=== PATIENT | male | born 1950 | race Caucasian/White ===

== ENCOUNTER 2018-12-11 10:49 | Emergency (ER) | payer OTHER, MEDICARE ==
[2018-12-11] MEDS ORDERED: ALBUTEROL SO4 2.5/IPRATROPIUM 0.5 INH SOL 3 ML VIAL.NEB. NEB ONE ×2 (11:01→11:05)
[2018-12-11 11:05] VITALS: BP 148/74; PULSE 73; TEMP 98.1; BMI 31.6
[2018-12-11] MEDS ORDERED: predniSONE 20 MG TABLET (UD) PO ONE (11:44)
[2018-12-11] MEDS ORDERED: predniSONE 20 MG TABLET (UD) ONE (11:55)
--- NOTE | 2018-12-11 12:04 | PDOC ---
History of Present Illness - General Chief Complaint: Respiratory Stated Complaint: ASTHMA Time Seen by Provider: 12/11/18 11:14 History Source: Patient Exam Limitations: No Limitations - History of Present Illness Initial Comments: 12/11/18 12:29 68-year-old male with history of asthma presents to ED with cough and wheezing since yesterday. Patient states used his inhaler 3 with minimal improvement. Patient states has had no chest pain, fever or chills. Patient denies smoking history of lung disease. 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 in approximately 2 years Timing/Duration: reports: yesterday Severity: reports: mild Possible Cause: Yes: occasional episodes Modifying Factors: improves with: albuterol inhaler, coughing Associated Symptoms: reports: cough, wheezing Past History - Travel Traveled outside of the country in the last 30 days: No Close contact w/someone who was outside of country & ill: No - Past Medical History Allergies/Adverse Reactions: Allergies Allergy/AdvReac Type Severity Reaction Status Date / Time Penicillins Allergy Verified 12/11/18 10:57 Home Medications: Ambulatory Orders Atorvastatin Ca [Lipitor] 20 mg PO HS 07/01/18 Diclofenac Sodium 50 mg PO ASDIR 07/01/18 Albuterol Sulfate Inhaler - [Ventolin HFA Inhaler -] 1 - 2 inh PO QID PRN #1 inhaler 12/11/18 Albuterol Sulfate Inhaler - [Ventolin Hfa Inhaler -] 1 - 2 inh PO QID 12/11/18 predniSONE [Deltasone -] 40 mg PO DAILY #4 tablet 12/11/18 Asthma: Yes COPD: No Hypercholesterolemia: Yes - Suicide/Smoking/Psychosocial Hx Smoking History: Unknown if ever smoked Patient Lives Alone: Yes Lives with/in: lives alone Review of Systems - Review of Systems Able to Perform ROS?: Yes Constitutional: No: Symptoms Reported HEENTM: No: Symptoms Reported Respiratory: Yes: Cough, Wheezing Cardiac (ROS): No: Symptoms Reported ABD/GI: No: Symptoms Reported Musculoskeletal: No: Symptoms Reported Integumentary: No: Symptoms Reported Neurological: No: Symptoms reported *Physical Exam - Vital Signs Last Vital Signs Temp Pulse Resp BP Pulse Ox 98.1 F 73 18 148/74 99 12/11/18 10:58 12/11/18 10:58 12/11/18 10:58 12/11/18 10:58 12/11/18 10:58 - Physical Exam General Appearance: Yes: Nourished, Appropriately Dressed. No: Apparent Distress HEENT: positive: Pharynx Normal. negative: Pale Conjunctivae Neck: positive: Normal Thyroid, Supple Respiratory/Chest: positive: Lungs Clear, Normal Breath Sounds. negative: Respiratory Distress, Accessory Muscle Use Cardiovascular: positive: Regular Rhythm, Regular Rate. negative: Murmur Gastrointestinal/Abdominal: positive: Soft. negative: Tenderness Extremity: negative: Pedal Edema Integumentary: positive: Normal Color, Warm, Moist Neurologic: positive: Motor Strength 5/5 (ambulatory) Moderate Sedation - Procedure Monitoring Vital Signs: Procedure Monitoring Vital Signs Temperature 98.1 F 12/11/18 10:58 Pulse Rate 73 12/11/18 10:58 Respiratory Rate 18 12/11/18 10:58 Blood Pressure 148/74 12/11/18 10:58 O2 Sat by Pulse Oximetry (%) 99 12/11/18 10:58 ED Treatment Course - RADIOLOGY Radiology Studies Ordered: Category Date Time Status CHEST PA & LAT [RAD] Stat Radiology 12/11/18 11:44 Ordered - Medications Given in the ED: ED Medications Discontinued Medications Generic Name Dose Route Start Last Admin Trade Name Freq PRN Reason Stop Dose Admin Albuterol/Ipratropium 2 amp 12/11/18 11:05 12/11/18 11:05 Duoneb - NEB 12/11/18 11:06 2 amp NOW ONE Administration Prednisone 60 mg 12/11/18 11:44 12/11/18 11:56 Deltasone - PO 12/11/18 11:45 60 mg ONCE ONE Administration Medical Decision Making - Medical Decision Making 12/11/18 12:01 Complaint wheezing and cough since last night with no improvement of using inhaler 3. Patient states his inhaler hasxpired since he has not seen his doctor for over 2 years. Patient has no other complaints at this time. Exam: Patient with no wheezing upon my arrival. Patient was given albuterol nebulizer in triage secondary to wheezing noted by triage nurse. Patient has no accessory muscle usage. Plan. Chest x-ray to rule out pulmonary etiology if negative will discharge home with prednisone and renew his albuterol. 12/11/18 12:53 Chest x-ray negative for acute pathology. Patient continues to state feeling back at baseline. Patient given supportive care instructions and prednisone 2 days along with renewed albuterol inhaler. *DC/Admit/Observation/Transfer Diagnosis at time of Disposition: Asthma exacerbation - Discharge Dispostion Disposition: HOME Condition at time of disposition: Good - Prescriptions Prescriptions: Albuterol Sulfate Inhaler - [Ventolin HFA Inhaler -] 1 - 2 inh PO QID PRN #1 inhaler PRN Reason: Wheezing predniSONE [Deltasone -] 40 mg PO DAILY #4 tablet - Referrals Referrals: ON STAFF,NOT [Primary Care Provider] - - Patient Instructions Printed Discharge Instructions: DI for Asthma -- Adult Additional Instructions: Please take Prednisone starting tomorrow. Please take Albuterol as needed. - Post Discharge Activity
== END 2018-12-11 12:48 | disposition home or self-care (01) ==
LOC: JER 10:49
PROC: 3E0F7GC Introduction of Other Therapeutic Substance into Respiratory Tract, Via Natural or Artificial Opening (ICD-10-PCS; principal; 2018-12-11)
DX: J45.901 Unspecified asthma with (acute) exacerbation (principal)
CPT/HCPCS: 71046-TC-FY; 94640; 99283-25

== ENCOUNTER 2018-12-16 11:45 | Emergency (ER) | payer OTHER, MEDICARE ==
[2018-12-16 12:08] VITALS: TEMP 98.7; BMI 31.6
--- NOTE | 2018-12-16 12:52 | PDOC ---
History of Present Illness - General Chief Complaint: Asthma Stated Complaint: ASTHMA 2nd visit Time Seen by Provider: 12/16/18 12:51 - History of Present Illness Initial Comments: 68yo M with PMH of exercise-induced asthma and HLD presenting with shortness of breath. Patient states that his asthma got worse on Friday. He does not know what triggered it, but suspects a neighbor may have been tempering with their shared ventilation unit. Last asthma attack was last week for which he presented to the ED. Before that time, his asthma had been under control and he even had several albuterol inhalers. Endorses occasional dry cough. Has never been hospitalized or intubated for his asthma. Finished the steroids prescribed from the last ED visit. Patient has an appointment to see a new bankruptcy manager on 12/29/18 as his previous one last year. He has seen a refractory tile helper in the past (about five years ago) but does not remember who the physician was or what transpired. Patient last saw his primary care physician last spring who gave him a "clean bill of health." No hemoptysis, no recent surgical history, no recent immobilization, no hormone use, no history of DVT or PE. Reports difficulty urinating, but no dysuria, hematuria, or frequency. Denies sick contacts or recent travel. Did not get a flu shot this season. Denies fever, chills, chest pain, or abdominal pain. Past History - Past Medical History Allergies/Adverse Reactions: Allergies Allergy/AdvReac Type Severity Reaction Status Date / Time Penicillins Allergy Verified 12/16/18 12:08 Home Medications: Ambulatory Orders Atorvastatin Ca [Lipitor] 20 mg PO HS 07/01/18 RX: Diclofenac Sodium 50 mg PO ASDIR 07/01/18 Albuterol Sulfate Inhaler - [Ventolin Hfa Inhaler -] 1 - 2 inh PO QID 12/11/18 Methylprednisolone [Medrol Dose Bandar] 4 mg PO ASDIR #21 tablet 12/16/18 RX: Azithromycin 250 mg PO DAILY #6 tablet 12/16/18 Zolpidem Tartrate [Ambien] 10 mg PO HS 12/16/18 Asthma: Yes COPD: No Hypercholesterolemia: Yes - Suicide/Smoking/Psychosocial Hx Smoking History: Never smoked Information on smoking cessation initiated: No Hx Alcohol Use: No Drug/Substance Use Hx: No Review of Systems - Review of Systems Comments:: Constitutional: no fever, no chills HEENT: no throat pain, no dysphagia Cardiovascular: no chest pain, no palpitations Respiratory: +cough, +shortness of breath Gastrointestinal: no abdominal pain, no nausea, no vomiting Genitourinary: no dysuria, no frequency Musculoskeletal: no myalgia, no arthralgia Skin: no rash, no itching Neurologic: no headache, no dizziness *Physical Exam - Vital Signs Last Vital Signs Temp Pulse Resp BP Pulse Ox 98.7 F 79 19 167/87 95 12/16/18 12:06 12/16/18 12:06 12/16/18 12:06 12/16/18 12:06 12/16/18 12:06 - Physical Exam Comments: General: Awake, alert, and fully oriented, in no acute distress Head: No signs of trauma Eyes: EOMI, sclera anicteric ENT: Moist mucus membranes Neck: Normal ROM, supple Lungs: Diffuse expiratory wheezes present bilaterally Cardio: Regular rhythm, S1 and S2 present Abdomen: Soft, nontender. No guarding, no rebound, no masses Extremities: Normal range of motion, Distal pulses present, no lower limb edema SKIN: Warm, Dry, normal turgor Neurologic: Cranial nerves II through XII grossly intact. Normal speech Moderate Sedation - Procedure Monitoring Vital Signs: Procedure Monitoring Vital Signs Temperature 98.7 F 12/16/18 12:06 Pulse Rate 79 12/16/18 12:06 Respiratory Rate 19 12/16/18 12:06 Blood Pressure 167/87 12/16/18 12:06 O2 Sat by Pulse Oximetry (%) 95 12/16/18 12:06 ED Treatment Course - LABORATORY CBC & Chemistry Diagram: 12/16/18 13:48 12/16/18 13:48 Medical Decision Making - Medical Decision Making 68yo M with PMH of exercise-induced asthma and HLD presenting with shortness of breath. DDX including but limited to asthma exacerbation, COPD, CHF, URI, Influenza, ACS , PE, Allergic reaction Exam consistent with asthma, however, this is patient's second visit within a week, so will pursue further workup Plan to administer nebs and solu-medrol. Blood work to assess for infection, allergy, or cardiac pathology. Repeat CXR to check for PNA. Flu swab. 12/16/18 14:06 Patient with improved lung exam. Only scant wheezes. He does have an appointment to see a bankruptcy manager on 12/29. No leukocytosis or anemia. Flu and tpn negative. CXR unchanged from previous; will cover with azithromycin since this asthma exacerbation is vastly different from his baseline. Medrol-dose pack sent to pharmacy as well. 12/16/18 15:24 Patient advised to stay for admission. Benefits and risks explained and patient voice understanding. He declined admission after extensive discussion. "I'll come back if I have to but I can't stay" Patient signed out AMA with Azithromycin, Medrol dose pack, and return precautions. *DC/Admit/Observation/Transfer Diagnosis at time of Disposition: Asthma exacerbation - Discharge Dispostion Disposition: AGAINST MEDICAL ADVICE Condition at time of disposition: Stable - Prescriptions Prescriptions: RX: Azithromycin 250 mg PO DAILY #6 tablet Methylprednisolone [Medrol Dose Bandar] 4 mg PO ASDIR #21 tablet - Referrals Referrals: Baljeet Miles [Primary Care Provider] - - Patient Instructions Printed Discharge Instructions: Asthma -- Adult Additional Instructions: Call for emergency medical services or go to the emergency room right away if any of the following occurs: Difficulty breathing, unrelieved by medications Tightness in chest, unrelieved by medications Prescriptions sent to your pharmacy. Take as instructed. In addition, use your inhaler every 4-6 hours for the next two days. If you think you have an emergency, call for medical help right away. - Post Discharge Activity
[2018-12-16] MEDS ORDERED: ALBUTEROL SO4 2.5/IPRATROPIUM 0.5 INH SOL 3 ML VIAL.NEB. NEB ONE ×2 (12:59→13:32)
--- NOTE | 2018-12-16 13:31 | PDOC ---
Attending Attestation - HPI HPI: 12/16/18 14:15 The patient is a 68yo M with a signfiicant past medical history of exercise- induced asthma and HLD presenting with shortness of breath since Friday. He reports having an asthma attack last week for which he presented to the ED. Before that time, his asthma had been under control and he even had several albuterol inhalers. He also reports a occasional dry cough. He states he has an appointment to see a new risk control consultant on 12/29/18 as his previous one last year. He denies hemoptysis, recent surgical history, recent immobilization, hormone use. He denies history of DVT or PE. He enies sick contacts or recent travel. He denies fever, chills, chest pain, or abdominal pain. <Stacey Smallwood - Last Filed: 12/16/18 14:23> - Resident Resident Name: FabyMeli - ED Attending Attestation I have performed the following: I have examined & evaluated the patient, The case was reviewed & discussed with the resident, I agree w/resident's findings & plan, Exceptions are as noted - Physicial Exam PE: 12/16/18 13:28 GENERAL: The patient is in no acute distress. EYES: PERRLA, EOMI, sclera anicteric, conjunctiva clear. ENT: Ears normal, nares patent, oropharynx clear without exudates. Moist mucous membranes. NECK: Normal range of motion, supple without lymphadenopathy, JVD, or masses. LUNGS: Breath sounds equal, clear to auscultation bilaterally. No wheezes, and no crackles. HEART:Regular rate and rhythm, normal S1 and S2 without murmur, rub or gallop. ABDOMEN: Soft, nontender, normoactive bowel sounds. No guarding, no rebound. No masses palpable. EXTREMITIES: Normal range of motion, no edema. NEUROLOGICAL: Cranial nerves II through XII grossly intact. Normal speech. No focal neurological deficits. MUSCULOSKELETAL: Back non-tender to palpation, no CVA tenderness SKIN: Warm, Dry, normal turgor, no rashes or lesions noted. - Medical Decision Making 12/16/18 16:18 NSR rate of 77 bpm, axis nml, intervals nml, no st elevation or depression 12/16/18 16:19 Laboratory Tests 12/16/18 12/16/18 12/16/18 13:48 13:48 13:48 WBC 9.8 Hgb 16.1 Hct 46.4 Plt Count 240 BUN 21 H Creatinine 1.1 AST 49 H ALT 85 H Creatine Kinase Index 0.9 CK-MB (CK-2) 3.1 Troponin I < 0.02 Influenza A (Rapid) Negative Influenza B (Rapid) Negative 12/16/18 16:19 CXR - no consolidation seen Upon re assessment, pt continues to have inspiratory and expiratory wheezing He states he feels much better No tachypnea Pt refusing to stay in the hospital <Fabiana Hansen - Last Filed: 12/16/18 16:20> Attestations - Attestations 12/16/18 14:24 Documentation prepared by Stacey Smallwood, acting as medical records library professor for Fabiana Hansen MD. <Stacey Smallwood - Last Filed: 12/16/18 14:23>
[2018-12-16] MEDS ORDERED: ALBUTEROL SO4 0.083% IH SOL 2.5 MG/3 ML VIAL.NEB. NEB ONE ×3 (13:33→14:24)
[2018-12-16] MEDS ORDERED: methylPREDNISolone NA SUCC 125 MG/2 ML VIAL IVPUSH ONE (13:33)
[2018-12-16] MEDS ORDERED: methylPREDNISolone NA SUCC 125 MG/2 ML VIAL ONE (13:46)
[2018-12-16 14:07] LABS: BASO % 0.7 % (0-2.0); EOS % 4.6 % (0-4.5); HEMATOCRIT 46.4 % (35.4-49); HEMOGLOBIN 16.1 GM/dL (11.7-16.9); LYMPH % 25.4 % (8-40); MCH 31.9 pg (25.7-33.7); MCHC 34.7 g/dl (32.0-35.9); MEAN PLT VOLUME 7.9 fl (7.5-11.1); MONO % 9.5 % (3.8-10.2); NEUT % 59.8 % (42.8-82.8); PLATELET COUNT 240 K/MM3 (134-434); RBC 5.04 M/mm3 (4.00-5.60); RDW 14.2 % (11.9-15.9); WHITE BLOOD COUNT 9.8 K/mm3 (4.0-10.0)
[2018-12-16 14:33] LABS: ALBUMIN 4.2 g/dl (3.4-5.0); ALK PHOS 68 U/L (45-117); ANION GAP 9 MMOL/L (8-16); BILIRUBIN,TOTAL 0.7 mg/dL (0.2-1); BLOOD UREA NITROGEN 21 mg/dL (7-18); CALCIUM 9.2 mg/dL (8.5-10.1); CHLORIDE 104 mmol/L (98-107); CO2 25 mmol/L (21-32); CREATININE 1.1 mg/dL (0.55-1.3); GLUCOSE,RANDOM 96 mg/dL (74-106); POTASSIUM 4.6 mmol/L (3.5-5.1); SGOT/AST 49 U/L (15-37); SGPT/ALT 85 U/L (13-61); SODIUM 138 mmol/L (136-145)
[2018-12-16 15:18] VITALS: BP 158/78; PULSE 90
--- NOTE | 2018-12-16 16:04 | EKG ---
Test Reason : Blood Pressure : / mmHG Vent. Rate : 077 BPM Atrial Rate : 077 BPM P-R Int : 168 ms QRS Dur : 102 ms QT Int : 364 ms P-R-T Axes : 034 003 078 degrees QTc Int : 411 ms NORMAL SINUS RHYTHM NONSPECIFIC T WAVE ABNORMALITY ABNORMAL ECG NO PREVIOUS ECGS AVAILABLE Confirmed by TWIN SCHUMACHER, ROBBIN ([id number]) on 12/16/2018 4:03:41 PM Referred By: Confirmed By:ROBBIN MURCIA MD
== END 2018-12-16 15:50 | disposition left against medical advice (07) ==
LOC: JER 11:45
PROC: 3E0F7GC Introduction of Other Therapeutic Substance into Respiratory Tract, Via Natural or Artificial Opening (ICD-10-PCS; principal; 2018-12-16)
PROC: 3E033GC Introduction of Other Therapeutic Substance into Peripheral Vein, Percutaneous Approach (ICD-10-PCS; 2018-12-16)
DX: J45.41 Moderate persistent asthma with (acute) exacerbation (principal)
CPT/HCPCS: 36415; 71046-TC-FY; 80053; 82550; 82553; 83880; 84484; 85025; 87804; 93005; 93010; 99283-25

== ENCOUNTER 2018-12-22 11:36 | Emergency (ER) | payer OTHER, MEDICARE ==
[2018-12-22 12:13] VITALS: BMI 31.6
--- NOTE | 2018-12-22 12:37 | PDOC ---
History of Present Illness - General Chief Complaint: Asthma Stated Complaint: ASTHMA Time Seen by Provider: 12/22/18 12:36 History Source: Patient, Old Records Exam Limitations: No Limitations - History of Present Illness Initial Comments: HPI: 68 y/o male presenting to [facility] ER complaining of shortness of breath and wheezing x1 month. This is the pts third ED visit for these symptoms (11 Dec 2018 and 16 Dec 2018). Pt reports he is wheezing at rest and with exertion. Become worse when lying flat. Endorses infrequent and nonproductive cough. Denies leg swelling or paroxysmal nocturnal dyspnea. Denies fevers, chills, weight loss, or night sweats. Denies calf swelling, long periods of immobilization, or recent surgery. Denies personal or familial history of blood clots or PE. Pt has a history of asthma managed with PRN ventolin. Has received azithromycin and prednisone over the past week without improvement or change in his symptoms. 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 Is scheduled to establish care with Dr. Mckeon at the end of the month. Has never been intubated for asthma in the past. 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 States there is possible chemical exposure. Medical Hx: - Asthma - HLD - Uvulectomy - Left shoulder repair x2 - Left knee repair Family Hx: - Multiple family members, include brother, sister, and father, have from lung problems Past History - Past Medical History Allergies/Adverse Reactions: Allergies Allergy/AdvReac Type Severity Reaction Status Date / Time Penicillins Allergy Verified 12/22/18 12:09 Home Medications: Ambulatory Orders Atorvastatin Ca [Lipitor] 20 mg PO HS 07/01/18 Diclofenac Sodium 100 mg PO DAILY 07/01/18 Albuterol Sulfate Inhaler - [Ventolin Hfa Inhaler -] 1 - 2 inh PO QID 12/11/18 Zolpidem Tartrate [Ambien] 10 mg PO HS 12/16/18 Prednisone 10 mg PO DAILY #40 tablet 12/22/18 Asthma: Yes COPD: No Hypercholesterolemia: Yes - Suicide/Smoking/Psychosocial Hx Smoking History: Never smoked Hx Alcohol Use: No Drug/Substance Use Hx: No Review of Systems - Review of Systems Able to Perform ROS?: Yes Comments:: In addition to that documented in the HPI above, the additional ROS was obtained : Constitutional: Denies fevers or chills Eyes: Denies vision changes ENMT: Denies sore throat CV: Endorses anterior chest wall tenderness with cough, non-radiated Resp: Per HPI GI: Denies vomiting or diarrhea : Denies painful urination MSK: Denies recent trauma Skin: Denies new rashes Neuro: Denies new numbness or tingling or weakness Endocrine: Denies polyuria Heme: Denies bleeding or bruising *Physical Exam - Vital Signs Last Vital Signs Temp Pulse Resp BP Pulse Ox 98.8 F 78 20 159/83 95 12/22/18 12:00 12/22/18 12:00 12/22/18 12:00 12/22/18 12:00 12/22/18 12:00 - Physical Exam Comments: Constitutional: Non-toxic adult male in no acute distress or obvious discomfort. Found sitting upright on edge of hospital bed. Alert and oriented x4. Answered all questions appropriately and completely. Speech was non-labored , non-pressured. Head: Normocephalic. No obvious external signs of trauma. Eyes: Sclerae white. Conjunctiva moist and not injected. Ears: Hearing grossly intact. Nose: No nasal discharge. Throat: Oral cavity and pharynx normal. No inflammation, swelling, exudate, or lesions. No uvula. Neck: Supple, trachea is midline. No JVD or thyromegaly. Cardiovascular / Chest: Regular rate and regular rhythm. No murmur, rubs, clicks, or gallops. Peripheral pulses: radial pulses full. Respiratory: Breathing unlabored. Able to speak in complete sentences without pausing. Equal chest rise and fall. Diffuse expiratory wheezing. No stridor or rhonchi. No pursed lip breathing, no retractions. Gastrointestinal: abdomen is soft, non-tender, non-distended. Neuro: Alert and oriented. Moving all four extremities spontaneously. Skin: Warm, dry, and intact. Psych: Affect: appropriate. Mood: normal. Moderate Sedation - Procedure Monitoring Vital Signs: Procedure Monitoring Vital Signs Temperature 98.8 F 12/22/18 12:00 Pulse Rate 78 12/22/18 12:00 Respiratory Rate 20 12/22/18 12:00 Blood Pressure 159/83 12/22/18 12:00 O2 Sat by Pulse Oximetry (%) 95 12/22/18 12:00 ED Treatment Course - LABORATORY CBC & Chemistry Diagram: 12/22/18 13:00 12/22/18 14:45 *DC/Admit/Observation/Transfer Diagnosis at time of Disposition: Asthma exacerbation Qualifiers: Asthma severity: moderate Asthma persistence: persistent Qualified Code(s): J45.41 - Moderate persistent asthma with (acute) exacerbation - Discharge Dispostion Disposition: HOME Condition at time of disposition: Good Decision to Admit order: No - Prescriptions Prescriptions: Prednisone 10 mg PO DAILY #40 tablet - Referrals Referrals: Gagan Mckeon MD [Staff Physician] - - Patient Instructions Printed Discharge Instructions: Asthma -- Adult Additional Instructions: You were seen today for shortness of breath and wheezing. Your chest CT did not show any lung problems. It did show some fatty build up in your liver. Your liver enzymes were slightly elevated, which may be related to the fat build up. This finding is unlikely to be related to your symptoms today. Your symptoms are likely related to your history of asthma. I have sent a prescription for a longer Prednisone taper to your pharmacy. You should take 40mg daily for days 1-4, then 30mg for days 5-8, then 20mg for days 9-12, then 10mg for days 13-16. Continue to use your inhaler as needed. Follow up with Dr. Mckeon at your previously scheduled appointment. You should also follow up with your primary care doctor about the fatty liver finding within the next week. You will need to call to make an appointment. A copy of todays results are attached to this packet. Take it to the appointment so your doctor can review them. Go to the nearest emergency department if your condition worsens or you feel like you need additional emergency evaluation. Print Language: FILIPINO - Post Discharge Activity
--- NOTE | 2018-12-22 13:01 | PDOC ---
Attending Attestation - Resident Resident Name: Benny Crane - ED Attending Attestation I have performed the following: I have examined & evaluated the patient, The case was reviewed & discussed with the resident, I agree w/resident's findings & plan, Exceptions are as noted - HPI HPI: 68 yo M history asthma, HL presents with SOB for the past 1.5 weeks. He was treated in the ED twice for the symptoms. He has received a course of steroids and azithro and continues to have symptoms. He has been using his inhaler without relief. No known exposures. He has been having a hacking cough which has not resolved. He had a negative flu swab on prior ED visit. - Physicial Exam PE: GENERAL: Awake, alert, and fully oriented, in no acute distress HEAD: No signs of trauma EYES: PERRLA, EOMI, sclera anicteric, conjunctiva clear ENT: Auricles normal inspection, hearing grossly normal, nares patent, oropharynx clear without exudates. Moist mucosa NECK: Normal ROM, supple, no lymphadenopathy, JVD, or masses LUNGS: Dec air entry B/L with diffuse exp wheezes. Intermittent staccato cough. HEART: Regular rate and rhythm, normal S1 and S2, no murmurs, rubs or gallops ABDOMEN: Soft, nontender, normoactive bowel sounds. No guarding, no rebound. No masses EXTREMITIES: Normal range of motion, no edema. No clubbing or cyanosis. No cords, erythema, or tenderness NEUROLOGICAL: Cranial nerves II through XII grossly intact. Normal speech, normal gait. Motor and sensation intact SKIN: Warm, Dry, normal turgor, no rashes or lesions noted. - Medical Decision Making Pt with persistent cough and wheezing following recent URI. Although the flu swab was negative, it may have been flu, as there is a high rate of false negatives. He had multiple family members with lung CA, will obtain non- contrast CT of the chest. Will give steroids, magnesium, and nebs.
[2018-12-22] MEDS ORDERED: ALBUTEROL SO4 2.5/IPRATROPIUM 0.5 INH SOL 3 ML VIAL.NEB. NEB ONE ×2 (13:07→13:26)
[2018-12-22] MEDS ORDERED: MAGNESIUM SULF 50% (8.12 MEQ/2 ML-1 GM VIAL) IVPB ONE (13:09)
[2018-12-22] MEDS ORDERED: methylPREDNISolone NA SUCC 125 MG/2 ML VIAL IVPUSH ONE (13:21)
[2018-12-22] MEDS ORDERED: MAGNESIUM 1GM/D5W - 2 GM/200 ML IVPB IVPB ONE (13:27)
[2018-12-22] MEDS ORDERED: methylPREDNISolone NA SUCC 125 MG/2 ML VIAL ONE (13:27)
[2018-12-22 13:43] LABS: BASO % 0.7 % (0-2.0); EOS % 6.5 % (0-4.5); LYMPH % 15.8 % (8-40); MCH 31.9 pg (25.7-33.7); MCHC 34.8 g/dl (32.0-35.9); MEAN CELL VOLUME 91.8 fl (80-96); MEAN PLT VOLUME 7.9 fl (7.5-11.1); MONO % 7.2 % (3.8-10.2); NEUT % 69.8 % (42.8-82.8); PLATELET COUNT 269 K/MM3 (134-434); RBC 5.33 M/mm3 (4.00-5.60); RDW 14.2 % (11.9-15.9); WHITE BLOOD COUNT 13.8 K/mm3 (4.0-10.0)
[2018-12-22 15:34] LABS: ALBUMIN 4.2 g/dl (3.4-5.0); ALK PHOS 75 U/L (45-117); ANION GAP 8 MMOL/L (8-16); BILIRUBIN,TOTAL 0.4 mg/dL (0.2-1); BLOOD UREA NITROGEN 24 mg/dL (7-18); CALCIUM 8.9 mg/dL (8.5-10.1); CHLORIDE 109 mmol/L (98-107); CO2 23 mmol/L (21-32); CREATININE 1.2 mg/dL (0.55-1.3); GLUCOSE,RANDOM 114 mg/dL (74-106); POTASSIUM 4.3 mmol/L (3.5-5.1); SGOT/AST 46 U/L (15-37); SGPT/ALT 93 U/L (13-61); SODIUM 139 mmol/L (136-145); TOT PROT 7.6 g/dl (6.4-8.2)
[2018-12-22 16:03] LABS: PLATELET ESTIMATE NORMAL
[2018-12-22 16:40] VITALS: BP 145/84; PULSE 84; TEMP 98.6
--- NOTE | 2018-12-22 19:45 | EKG ---
Test Reason : Blood Pressure : / mmHG Vent. Rate : 084 BPM Atrial Rate : 084 BPM P-R Int : 164 ms QRS Dur : 096 ms QT Int : 352 ms P-R-T Axes : 033 010 074 degrees QTc Int : 415 ms NORMAL SINUS RHYTHM NONSPECIFIC T WAVE ABNORMALITY ABNORMAL ECG WHEN COMPARED WITH ECG OF 16-DEC-2018 14:12, NO SIGNIFICANT CHANGE WAS FOUND Confirmed by MD LANCE, LOIS ([id number]) on 12/22/2018 7:44:42 PM Referred By: Confirmed By:LOIS LUCAS MD
== END 2018-12-22 16:35 | disposition home or self-care (01) ==
LOC: JER 11:36
PROC: 3E0F7GC Introduction of Other Therapeutic Substance into Respiratory Tract, Via Natural or Artificial Opening (ICD-10-PCS; principal; 2018-12-22)
PROC: 3E0333Z Introduction of Anti-inflammatory into Peripheral Vein, Percutaneous Approach (ICD-10-PCS; 2018-12-22)
PROC: 3E033GC Introduction of Other Therapeutic Substance into Peripheral Vein, Percutaneous Approach (ICD-10-PCS; 2018-12-22)
DX: J45.41 Moderate persistent asthma with (acute) exacerbation (principal); E78.00 Pure hypercholesterolemia, unspecified
CPT/HCPCS: 36415; 71250-TC; 80053; 84484; 85025; 93005; 93010; 94640; 96374; 96375; 99284-25

== ENCOUNTER 2019-01-12 10:35 | Emergency (ER) | payer OTHER, MEDICARE ==
[2019-01-12 10:54] VITALS: BMI 32.3
[2019-01-12] MEDS ORDERED: SODIUM CHLORIDE 0.9% 1000 ML INFUS.BAG IV ONE (11:12)
[2019-01-12] MEDS ORDERED: ONDANSETRON 4 MG/2 ML VIAL IVPUSH ONE (11:12)
[2019-01-12] MEDS ORDERED: FAMOTIDINE 20 MG/50 ML IVPB 20 MG/50 ML MG IVPB ONE ×2 (11:12→11:20)
[2019-01-12] MEDS ORDERED: ONDANSETRON 4 MG/2 ML VIAL ONE (11:20)
[2019-01-12] MEDS ORDERED: ALBUTEROL SO4 2.5/IPRATROPIUM 0.5 INH SOL 3 ML VIAL.NEB. NEB ONE ×2 (11:29→11:40)
--- NOTE | 2019-01-12 11:31 | PDOC ---
History of Present Illness - General History Source: Patient Exam Limitations: No Limitations - History of Present Illness Initial Comments: 01/12/19 12:36 The patient is a 68-year-old male with a past medical history significant for Asthma, HLD, Uvulectomy, Left shoulder repair x2, and Left knee repair presents to the emergency department with abdominal pain. The patient reports about 2 weeks ago he had an episode of asthma exacerbation that he followed up with. The patient was prescribed antibiotics and steroids for the symptoms, without relief. The patient reports during the course of steroid use, he started to have 5-10 NBNB daily episodes of diarrhea, associated with abdominal pain that s cramping in quality. The patient reports the pain worsened in severity last night. Denies nausea, vomiting, abdominal bloating, fever, chills. Denies sick contact, travel outside of the country, known sick contact. The patient denies crystal gazer follow up. Allergies: Penicillins Social history: none reported [place]CP: [place] the city. <Ariella Hope - Last Filed: 01/12/19 12:37> <Ubaldo Mcmahon - Last Filed: 01/12/19 16:48> - General Chief Complaint: Vomiting/Diarrhea Stated Complaint: STOMACH PAIN Time Seen by Provider: 01/12/19 11:02 Past History <Ariella Hope - Last Filed: 01/12/19 12:37> - Past Medical History Asthma: Yes COPD: No Hypercholesterolemia: Yes - Suicide/Smoking/Psychosocial Hx Smoking History: Never smoked Hx Alcohol Use: No Drug/Substance Use Hx: No <Ubaldo Mcmahon - Last Filed: 01/12/19 16:48> - Past Medical History Allergies/Adverse Reactions: Allergies Allergy/AdvReac Type Severity Reaction Status Date / Time Penicillins Allergy Verified 12/22/18 12:09 Home Medications: Ambulatory Orders Atorvastatin Ca [Lipitor] 20 mg PO HS 07/01/18 Diclofenac Sodium 100 mg PO DAILY 07/01/18 Albuterol Sulfate Inhaler - [Ventolin Hfa Inhaler -] 1 - 2 inh PO QID 12/11/18 Zolpidem Tartrate [Ambien] 10 mg PO HS 12/16/18 Albuterol Sulfate Inhaler - [Ventolin Hfa Inhaler -] 1 - 2 inh PO Q4H PRN #1 inhaler 02/19/19 Prednisone 10 mg PO DAILY #40 tablet 12/22/18 Vancomycin HCl 125 mg PO QID #40 capsule 01/12/19 Review of Systems - Review of Systems Able to Perform ROS?: Yes Comments:: 01/12/19 12:41 A complete review of 10 out of 10 review of systems is taken and is negative apart from what is previously mentioned below and in the HPI. <Ariella Hope - Last Filed: 01/12/19 12:37> *Physical Exam - Vital Signs Last Vital Signs Temp Pulse Resp BP Pulse Ox 99.6 F 85 16 139/72 99 01/12/19 10:51 01/12/19 10:51 01/12/19 10:51 01/12/19 10:51 01/12/19 10:51 - Physical Exam Comments: 01/01/19 12:44 Vitals: Triage Vital signs reviewed General Appearance: no acute distress, well nourished well developed, Neck: Supple;No Nuchal rigidity Chest Wall: Nontender Cardiac: Regular rate and rhythm, no murmurs, no rubs, no gallops, Lungs: Clear to auscultation bilateral, good air movement bilaterally, Abdomen: Soft, nondistended, normal bowel sounds, nontender to palpation Extremities: Full range of motion to all extremities, no cyanosis, clubbing, or edema Skin: Warm and dry, no rashes or lesions, no petechiae Neuro: AOX3; Cranial Nerves 2-12 grossly intact, Strength intact to all extremities, Sensation intact to all extremities Psych: normal mood, normal <Ariella Hope - Last Filed: 01/12/19 12:37> - Vital Signs Last Vital Signs Temp Pulse Resp BP Pulse Ox 99.6 F 85 16 139/72 99 01/12/19 10:51 01/12/19 10:51 01/12/19 10:51 01/12/19 10:51 01/12/19 10:51 <Ubaldo Mcmahon - Last Filed: 01/12/19 16:48> Moderate Sedation - Procedure Monitoring Vital Signs: Procedure Monitoring Vital Signs Temperature 99.6 F 01/12/19 10:51 Pulse Rate 85 01/12/19 10:51 Respiratory Rate 16 01/12/19 10:51 Blood Pressure 139/72 01/12/19 10:51 O2 Sat by Pulse Oximetry (%) 99 01/12/19 10:51 <Ariella Hope - Last Filed: 01/12/19 12:37> - Procedure Monitoring Vital Signs: Procedure Monitoring Vital Signs Temperature 99.6 F 01/12/19 10:51 Pulse Rate 85 01/12/19 10:51 Respiratory Rate 16 01/12/19 10:51 Blood Pressure 139/72 01/12/19 10:51 O2 Sat by Pulse Oximetry (%) 99 01/12/19 10:51 <Ubaldo Mcmahon - Last Filed: 01/12/19 16:48> ED Treatment Course - LABORATORY CBC & Chemistry Diagram: 01/12/19 11:35 01/12/19 11:35 - ADDITIONAL ORDERS Additional order review: 01/12/19 11:35 RBC 4.42 MCV 90.4 MCHC 35.4 RDW 13.7 MPV 6.9 L D Neutrophils % 67.7 Lymphocytes % 15.4 Monocytes % 11.7 H Eosinophils % 4.4 Basophils % 0.8 - Medications Given in the ED: ED Medications Discontinued Medications Generic Name Dose Route Start Last Admin Trade Name Freq PRN Reason Stop Dose Admin Albuterol/Ipratropium 3 amp 01/12/19 11:29 01/12/19 11:50 Duoneb - NEB 01/12/19 11:30 3 amp ONCE ONE Administration Famotidine/Sodium Chloride 20 mg in 50 mls @ 100 mls/hr 01/12/19 11:12 11:37 Pepcid 20 Mg Premixed Ivpb - IVPB 01/12/19 11:41 100 mls/hr ONCE ONE Administration Ondansetron HCl 4 mg 01/12/19 11:12 01/12/19 11:37 Zofran Injection IVPUSH 01/12/19 11:13 4 mg ONCE ONE Administration Sodium Chloride 1,000 ml 01/12/19 11:12 01/12/19 11:37 Normal Saline - IV 01/12/19 11:13 1,000 ml ONCE ONE Administration <Ariella Hope - Last Filed: 01/12/19 12:37> - LABORATORY CBC & Chemistry Diagram: 01/12/19 11:35 01/12/19 11:35 <Ubaldo Mcmahon - Last Filed: 01/12/19 16:48> Medical Decision Making - Medical Decision Making 01/12/19 12:24 Plan Micrio: Stool Culture and C-Diff. Medication Breathing treatment. Labs: CMP. Radiology: Chest X-ray. The patient is a 68-year-old male with a past medical history significant for Asthma, HLD, Uvulectomy, Left shoulder repair x2, and Left knee repair presents to the emergency department with abdominal pain. The patient reports about 2 weeks ago he had an episode of asthma exacerbation that he followed up with. The patient was prescribed antibiotics and steroids for the symptoms, without relief. The patient reports during the course of steroid use, he started to have 5-10 NBNB daily episodes of diarrhea, associated with abdominal pain that s cramping in quality. The patient reports the pain worsened in severity last night. Denies nausea, vomiting, abdominal bloating, fever, chills. Denies sick contact, travel outside of the country, known sick contact. The patient denies crystal gazer follow up. 01/12/19 12:37 <Ariella Hope - Last Filed: 01/12/19 12:37> - Medical Decision Making 2 week history of diarrhea after recent antibiotic use for URI C. difficile positive Labs within normal limits We'll discharge home with ten-day course of vancomycin and infectious disease follow-up Findings, the need for follow-up and strict return instructions discussed patient. <Ubaldo Mcmahon - Last Filed: 01/12/19 16:48> *DC/Admit/Observation/Transfer - Attestations Scribe Attestion: 01/12/19 12:24 Documentation prepared by Ariella Hope, acting as medical technologist microbiology for Ubaldo Mcmahon MD. <Ariella Hope - Last Filed: 01/12/19 12:37> - Discharge Dispostion Decision to Admit order: No <Ubaldo Mcmahon - Last Filed: 01/12/19 16:48> Diagnosis at time of Disposition: Clostridium difficile colitis - Discharge Dispostion Disposition: HOME - Prescriptions Prescriptions: Vancomycin HCl 125 mg PO QID #40 capsule - Referrals Referrals: Haydee Otero MD [Staff Physician] - [facility] [place] [place] [Provider Group] - Patient Instructions Printed Discharge Instructions: Clostridium difficile Infection Additional Instructions: Take vancomycin as prescribed. Take with an [id number] probiotic as directed on package. Drink plenty of fluids. Aggressive handwashing 30 seconds minimum avoid contacts with other people for the next 10 days. Follow-up with Dr. Otero tomorrow at noon [address] You will also receive a clinic to follow up with regarding your COPD asthma
[2019-01-12 11:47] LABS: BASO % 0.8 % (0-2.0); EOS % 4.4 % (0-4.5); HEMOGLOBIN 14.1 GM/dL (11.7-16.9); LYMPH % 15.4 % (8-40); MCHC 35.4 g/dl (32.0-35.9); MEAN CELL VOLUME 90.4 fl (80-96); MEAN PLT VOLUME 6.9 fl (7.5-11.1); MONO % 11.7 % (3.8-10.2); NEUT % 67.7 % (42.8-82.8); PLATELET COUNT 339 K/MM3 (134-434); RBC 4.42 M/mm3 (4.00-5.60); RDW 13.7 % (11.9-15.9); WHITE BLOOD COUNT 9.5 K/mm3 (4.0-10.0)
[2019-01-12 12:41] LABS: ALBUMIN 3.1 g/dl (3.4-5.0); ALK PHOS 69 U/L (45-117); ANION GAP 3 MMOL/L (8-16); BILIRUBIN,TOTAL 0.5 mg/dL (0.2-1); BLOOD UREA NITROGEN 16 mg/dL (7-18); CALCIUM 7.9 mg/dL (8.5-10.1); CHLORIDE 114 mmol/L (98-107); CO2 21 mmol/L (21-32); GLUCOSE,RANDOM 95 mg/dL (74-106); POTASSIUM 4.6 mmol/L (3.5-5.1); SGOT/AST 42 U/L (15-37); SGPT/ALT 56 U/L (13-61); SODIUM 138 mmol/L (136-145); TOT PROT 6.8 g/dl (6.4-8.2)
[2019-01-12 16:52] VITALS: BP 133/76; PULSE 92; TEMP 98.1
== END 2019-01-12 16:50 | disposition home or self-care (01) ==
LOC: JER 10:35
PROC: 3E0F7GC Introduction of Other Therapeutic Substance into Respiratory Tract, Via Natural or Artificial Opening (ICD-10-PCS; principal; 2019-01-12)
PROC: 3E033GC Introduction of Other Therapeutic Substance into Peripheral Vein, Percutaneous Approach (ICD-10-PCS; 2019-01-12)
PROC: 3E033GC Introduction of Other Therapeutic Substance into Peripheral Vein, Percutaneous Approach (ICD-10-PCS; 2019-01-12)
DX: A04.72 Enterocolitis due to Clostridium difficile, not specified as recurrent (principal); Z79.2 Long term (current) use of antibiotics; J45.909 Unspecified asthma, uncomplicated
CPT/HCPCS: 36415; 71045-TC-FY; 80053; 85025; 87045; 87046; 87324; 87449; 94640; 96365; 96375; 99283-25; J7030

== ENCOUNTER 2019-01-19 14:53 | Emergency (ER) | payer OTHER, MEDICARE ==
--- NOTE | 2019-01-19 15:15 | PDOC ---
Rapid Medical Evaluation Medical Evaluation: Allergies Allergy/AdvReac Type Severity Reaction Status Date / Time Penicillins Allergy Verified 12/22/18 12:09 I have performed a brief in-person evaluation of this patient. The patient presents with a chief complaint of: Hx asthma, c/o SOB, wheezing for past few weeks; seen in ER last month for similar complaint and had CT chest with no acute findings; denies smoking; patient was tested positive for C. diff last week and is currently taking vancomycin Pertinent physical exam findings: +Wheezing I have ordered the following: Labs, CXR, duonebs, steroids The patient will proceed to the ED for further evaluation. 01/19/19 15:14
[2019-01-19 15:17] VITALS: BP 184/71; PULSE 76; TEMP 98.6; BMI 31.6
[2019-01-19] MEDS ORDERED: methylPREDNISolone NA SUCC 125 MG/2 ML VIAL IVPB ONE (15:18)
[2019-01-19] MEDS ORDERED: ALBUTEROL SO4 2.5/IPRATROPIUM 0.5 INH SOL 3 ML VIAL.NEB. NEB ONE ×2 (15:50→16:47)
[2019-01-19] MEDS: ALBUTEROL SO4 2.5/IPRATROPIUM 0.5 INH SOL 3 ML VIAL.NEB. NEB SCH ×2 (15:55→16:42)
[2019-01-19 16:00] LABS: VENOUS PC02 47.3 mmHg (41-51); VENOUS PH 7.36 (7.31-7.41); VENOUS PO2 40.5 mmHg (30-40)
[2019-01-19 16:03] LABS: BASO % 0.6 % (0-2.0); EOS % 7.3 % (0-4.5); HEMATOCRIT 43.7 % (35.4-49); HEMOGLOBIN 14.9 GM/dL (11.7-16.9); LYMPH % 21.3 % (8-40); MCH 31.2 pg (25.7-33.7); MCHC 34.1 g/dl (32.0-35.9); MEAN CELL VOLUME 91.6 fl (80-96); MEAN PLT VOLUME 6.9 fl (7.5-11.1); MONO % 10.6 % (3.8-10.2); NEUT % 60.2 % (42.8-82.8); PLATELET COUNT 349 K/MM3 (134-434); RBC 4.77 M/mm3 (4.00-5.60); RDW 13.9 % (11.9-15.9); WHITE BLOOD COUNT 8.9 K/mm3 (4.0-10.0)
[2019-01-19] MEDS ORDERED: methylPREDNISolone NA SUCC 125 MG/2 ML VIAL ONE (16:28)
[2019-01-19 16:43] LABS: ALBUMIN 3.6 g/dl (3.4-5.0); ALK PHOS 82 U/L (45-117); ANION GAP 6 MMOL/L (8-16); BILIRUBIN,TOTAL 0.5 mg/dL (0.2-1); BLOOD UREA NITROGEN 19 mg/dL (7-18); CALCIUM 9.2 mg/dL (8.5-10.1); CHLORIDE 108 mmol/L (98-107); CO2 26 mmol/L (21-32); CREATININE 1.1 mg/dL (0.55-1.3); GLUCOSE,RANDOM 90 mg/dL (74-106); N-TERMINAL BNP 21.8 pg/ml (5-125); POTASSIUM 4.8 mmol/L (3.5-5.1); SGOT/AST 58 U/L (15-37); SGPT/ALT 70 U/L (13-61); SODIUM 141 mmol/L (136-145); TOT PROT 7.7 g/dl (6.4-8.2)
--- NOTE | 2019-01-19 16:50 | PDOC ---
Attending Attestation - Resident Resident Name: MileSaChristy - ED Attending Attestation I have performed the following: I have examined & evaluated the patient, The case was reviewed & discussed with the resident, I agree w/resident's findings & plan, Exceptions are as noted - HPI HPI: 01/19/19 16:49 68 yo male p/w wheezing after exercise - Physicial Exam PE: 01/19/19 19:58 WNWD 68 YO MA;E P/W WHEEZING HEAD NCAT NECK SUPPLE LUNGS initially THERE WAS WHEEZING BUT NOW cta b/l cvs [id number] abd nontender skin warm and dry neuro axox3,ambulatory psych appropriate - Medical Decision Making 01/19/19 16:53 pt has had several ED visits for the same complaint last month ct chest from 12/22/28 mild rt middle lobe scarring 01/19/19 20:[address] Mckeon but cancelled his PFT he was encouraged to see Dr Mckeon for his PFT -he states he has alot of MDIs at home
--- NOTE | 2019-01-19 18:56 | PDOC ---
History of Present Illness <Romelia Cristina - Last Filed: 01/19/19 19:54> - General History Source: Patient Exam Limitations: No Limitations - History of Present Illness Initial Comments: 01/19/19 18:54 Pt is a 68yo M with PMH of Asthma presenting to ED with complaints of "asthma attack". Pt states that he started to feel short of breath and have wheezing today. Does not know what triggered it. He has been here a few times recently but has never had asthma exacerbations in the past, nor has he been hospitalized or intubated. He uses an inhaler. Denies recent fever, chills but says he does have a dry cough. No sore throat, chest pain, back pain, n/v/d, urinary symptoms. He was recently diagnosed with C. Diff and has been on Vancomycin and is about to complete the course. PMD: [facility] PMH: see hpi PSH: shoulder surgery, cholecystecomy? Meds: Ventolin Allergies: PCN Social: denies <Christy Treadwell - Last Filed: 01/19/19 23:52> - General Chief Complaint: Asthma Stated Complaint: ASTHMA Time Seen by Provider: 01/19/19 15:13 Past History <Romelia Cristina - Last Filed: 01/19/19 19:54> - Past Medical History Asthma: Yes COPD: No Hypercholesterolemia: Yes - Suicide/Smoking/Psychosocial Hx Smoking History: Unknown if ever smoked Hx Alcohol Use: No Drug/Substance Use Hx: No <Christy Treadwell - Last Filed: 01/19/19 23:52> - Past Medical History Allergies/Adverse Reactions: Allergies Allergy/AdvReac Type Severity Reaction Status Date / Time Penicillins Allergy Verified 01/19/19 16:54 Home Medications: Ambulatory Orders Atorvastatin Ca [Lipitor] 20 mg PO HS 07/01/18 Albuterol Sulfate Inhaler - [Ventolin Hfa Inhaler -] 1 - 2 inh PO QID 12/11/18 Zolpidem Tartrate [Ambien] 10 mg PO HS 12/16/18 Prednisone [Deltasone] 20 mg PO DAILY #3 tablet 01/19/19 *Physical Exam - Vital Signs Last Vital Signs Temp Pulse Resp BP Pulse Ox 98.6 F 76 20 184/71 H 99 01/19/19 15:13 01/19/19 15:13 01/19/19 15:13 01/19/19 15:13 01/19/19 16:30 <Romelia Cristina - Last Filed: 01/19/19 19:54> - Vital Signs Last Vital Signs Temp Pulse Resp BP Pulse Ox 98.6 F 76 20 184/71 H 99 01/19/19 15:13 01/19/19 15:13 01/19/19 15:13 01/19/19 15:13 01/19/19 16:30 <Christy Treadwell - Last Filed: 01/19/19 23:52> Moderate Sedation - Procedure Monitoring Vital Signs: Procedure Monitoring Vital Signs Temperature 98.6 F 01/19/19 15:13 Pulse Rate 76 01/19/19 15:13 Respiratory Rate 20 01/19/19 15:13 Blood Pressure 184/71 H 01/19/19 15:13 O2 Sat by Pulse Oximetry (%) 99 01/19/19 16:30 <Romelia Cristina - Last Filed: 01/19/19 19:54> - Procedure Monitoring Vital Signs: Procedure Monitoring Vital Signs Temperature 98.6 F 01/19/19 15:13 Pulse Rate 76 01/19/19 15:13 Respiratory Rate 20 01/19/19 15:13 Blood Pressure 184/71 H 01/19/19 15:13 O2 Sat by Pulse Oximetry (%) 99 01/19/19 16:30 <Christy Treadwell - Last Filed: 01/19/19 23:52> ED Treatment Course - LABORATORY CBC & Chemistry Diagram: 01/19/19 15:44 01/19/19 15:44 - ADDITIONAL ORDERS Additional order review: Laboratory Results 01/19/19 01/19/19 15:44 15:44 VBG pH 7.36 POC VBG pCO2 47.3 POC VBG pO2 40.5 H VBG HCO3 25.9 VBG O2 Sat ([place]) 72.4 VBG Base Excess 0.4 Sodium 141 Potassium 4.8 Chloride 108 H Carbon Dioxide 26 Anion Gap 6 L BUN 19 H Creatinine 1.1 Creat Clearance w eGFR 66.37 Random Glucose 90 Calcium 9.2 Total Bilirubin 0.5 AST 58 H ALT 70 H Alkaline Phosphatase 82 B-Natriuretic Peptide 21.8 Total Protein 7.7 Albumin 3.6 01/19/19 15:44 RBC 4.77 MCV 91.6 MCHC 34.1 RDW 13.9 MPV 6.9 L Neutrophils % 60.2 Lymphocytes % 21.3 D Monocytes % 10.6 H Eosinophils % 7.3 H Basophils % 0.6 - Medications Given in the ED: ED Medications Discontinued Medications Generic Name Dose Route Start Last Admin Trade Name Elza PRN Reason Stop Dose Admin Albuterol/Ipratropium 1 amp 01/19/19 15:30 01/19/19 16:42 Duoneb - NEB 01/19/19 16:16 1 amp Q15M VIOLA Administration Methylprednisolone Sodium Succinate 125 mg 01/19/19 15:18 01/19/19 15:30 Solu-Medrol - IVPB 01/19/19 15: 125 mg ONCE ONE Administration <Romelia Cristina - Last Filed: 01/19/19 19:54> - LABORATORY CBC & Chemistry Diagram: 01/19/19 15:44 01/19/19 15:44 - ADDITIONAL ORDERS Additional order review: Laboratory Results 01/19/19 01/19/19 15:44 15:44 VBG pH 7.36 POC VBG pCO2 47.3 POC VBG pO2 40.5 H VBG HCO3 25.9 VBG O2 Sat ([place]) 72.4 VBG Base Excess 0.4 Sodium 141 Potassium 4.8 Chloride 108 H Carbon Dioxide 26 Anion Gap 6 L BUN 19 H Creatinine 1.1 Creat Clearance w eGFR 66.37 Random Glucose 90 Calcium 9.2 Total Bilirubin 0.5 AST 58 H ALT 70 H Alkaline Phosphatase 82 B-Natriuretic Peptide 21.8 Total Protein 7.7 Albumin 3.6 01/19/19 15:44 RBC 4.77 MCV 91.6 MCHC 34.1 RDW 13.9 MPV 6.9 L Neutrophils % 60.2 Lymphocytes % 21.3 D Monocytes % 10.6 H Eosinophils % 7.3 H Basophils % 0.6 - Medications Given in the ED: ED Medications Discontinued Medications Generic Name Dose Route Start Last Admin Trade Name Billyq PRN Reason Stop Dose Admin Albuterol/Ipratropium 1 amp 01/19/19 15:30 01/19/19 16:42 Duoneb - NEB 01/19/19 16:16 1 amp Q15M VIOLA Administration Methylprednisolone Sodium Succinate 125 mg 01/19/19 15:18 01/19/19 15:30 Solu-Medrol - IVPB 01/19/19 15:19 125 mg ONCE ONE Administration <Christy Treadwell - Last Filed: 01/19/19 23:52> Medical Decision Making - Medical Decision Making 01/19/19 23:48 Pt is a 68yo M with PMH of Asthma presenting to ED with complaints of "asthma attack". Pt states that he started to feel short of breath and have wheezing today. Does not know what triggered it. He has been here a few times recently but has never had asthma exacerbations in the past, nor has he been hospitalized or intubated. He uses an inhaler. Denies recent fever, chills but says he does have a dry cough. No sore throat, chest pain, back pain, n/v/d, urinary symptoms. He was recently diagnosed with C. Diff and has been on Vancomycin and is about to complete the course. Vitals: htn, saturating well on RA PE: wheezing bilaterally most likely asthma. other dx includes chf, copd, pe, ptx, pna, pleural effusion -labs ordered by [facility]. duoneb, solumedrol labs wnl. after medicaitons pt feeling better and wants to go home. Still has wheezing but saturating well. had CT one month ago which shows R middle lobe scarring. Will DC home. Has PMD follow up and has seen dr. Mckeon . <Christy Treadwell - Last Filed: 01/19/19 23:52> *DC/Admit/Observation/Transfer <Romelia Cristina - Last Filed: 01/19/19 19:54> <Christy Treadwell - Last Filed: 01/19/19 23:52> Diagnosis at time of Disposition: Asthma exacerbation Qualifiers: Asthma severity: moderate Asthma persistence: unspecified Qualified Code(s): J45.901 - Unspecified asthma with (acute) exacerbation - Discharge Dispostion Disposition: HOME Condition at time of disposition: Stable - Prescriptions Prescriptions: Prednisone [Deltasone] 20 mg PO DAILY #3 tablet - Referrals Referrals: Chantelle Kelly [Primary Care Provider] - Gagan Mckeon MD [Staff Physician] - - Patient Instructions Printed Discharge Instructions: DI for Asthma -- Adult Additional Instructions: PLEASE FOLLOW UP WITH YOUR HOME [employer] TAKE YOUR INHALERS NEEDED RETURN FOR WORSENING SYMPTOMS - Post Discharge Activity
== END 2019-01-19 20:07 | disposition home or self-care (01) ==
LOC: JER 14:53
PROC: 3E0F7GC Introduction of Other Therapeutic Substance into Respiratory Tract, Via Natural or Artificial Opening (ICD-10-PCS; principal; 2019-01-19)
PROC: 3E0333Z Introduction of Anti-inflammatory into Peripheral Vein, Percutaneous Approach (ICD-10-PCS; 2019-01-19)
DX: J45.901 Unspecified asthma with (acute) exacerbation (principal)
CPT/HCPCS: 36415; 71046-TC-FY; 80053; 82803; 83880; 84484; 85025; 94640; 96374; 99283-25

== ENCOUNTER 2019-02-12 13:56 | Inpatient (IN) | payer OTHER, MEDICARE ==
--- NOTE | 2019-02-12 14:56 | PDOC ---
History of Present Illness - General Chief Complaint: Diarrhea Stated Complaint: INTESTINE INFECTION Time Seen by Provider: 02/12/19 14:54 - History of Present Illness Initial Comments: 02/12/19 15:27 The patient is a 68 year old male with a history of HLD, C.Diff who presents for evaluation of diarrhea. The patient tested positive on an outpatient basis for c.diff has has been managed on PO Vanc which he finished 4-5 days ago. He reports that he has had worsening symptoms including frequent watery bowel movements up to 15 times a day. He spoke to his ID specialist Dr. Otero who recommend the patient be admitted for iv treatment of his c.diff. The patient reports subjective fevers and chills as well as mild abdominal discomfort but otherwise denies SOB, chest pain, nausea, vomiting, or changes with urination. Past History - Past Medical History Allergies/Adverse Reactions: Allergies Allergy/AdvReac Type Severity Reaction Status Date / Time Penicillins Allergy Verified 01/19/19 16:54 Home Medications: Ambulatory Orders Atorvastatin Ca [Lipitor] 20 mg PO HS 07/01/18 Albuterol Sulfate Inhaler - [Ventolin Hfa Inhaler -] 1 - 2 inh PO QID 12/11/18 Zolpidem Tartrate [Ambien] 10 mg PO HS 12/16/18 Asthma: Yes COPD: No GI Disorders: Yes (c diff 2018) Hypercholesterolemia: Yes - Suicide/Smoking/Psychosocial Hx Smoking History: Former smoker Have you smoked in the past 12 months: No Information on smoking cessation initiated: No Hx Alcohol Use: No Drug/Substance Use Hx: No Review of Systems - Review of Systems Comments:: 02/12/19 15:34 Constitutional: fevers, chills, No fatigue, malaise HEENT: No Rhinorrhea, nasal congestion, visual changes Cardiovascular: No chest pain, syncope, palpitations, lightheadedness Respiratory: No Cough, SOB, Hemoptysis, Gastrointestinal: Diarrhea, Abdominal discomfort. No Nausea, Vomiting, Constipation, Melena Genitourinary: No Dysuria, Frequency, Urgency, Hesitancy, Hematuria, Flank pain Musculoskeletal: No Myalgia, arthralgia Skin: No rashes, itching, bruising, pallor Neurologic: No Headache, Dizziness, Numbness, Weakness, or Tingling Psychiatric: No Hallucinations. No SI or HI *Physical Exam - Vital Signs Last Vital Signs Temp Pulse Resp BP Pulse Ox 99.3 F 86 18 144/72 97 02/12/19 14:14 02/12/19 14:14 02/12/19 14:14 02/12/19 14:14 02/12/19 14:52 - Physical Exam Comments: 02/12/19 15:35 General Appearance: Nourished. No Apparent Distress HEENT: No Pharyngeal Erythema, Tonsillar Exudate, Tonsillar Erythema Neck: No Cervical Lymphadenopathy Respiratory/Chest: Lungs Clear, Normal Breath Sounds. No Crackles, Rales, Rhonchi, Wheezing Cardiovascular: Regular Rhythm, Regular Rate. No Murmur, Gallops, Rubs Gastrointestinal/Abdominal: Normal Bowel Sounds, Soft. No Guarding, Rebound, Tenderness Musculoskeletal: No CVA Tenderness Extremity: Normal Capillary Refill Integumentary: Normal Color, Dry, Warm Neurologic: Fully Oriented, Alert, Normal Mood/Affect, Normal Response, ED Treatment Course - LABORATORY CBC & Chemistry Diagram: 02/12/19 15:14 02/12/19 15:14 Medical Decision Making - Medical Decision Making 02/12/19 15:37 The patient is a 68 year old male with a history of HLD, C.Diff who presents for evaluation of diarrhea. Given the patient's history and physical exam, we will obtain a cbc, cmp, lactate, blood cultures, ekg to evaluate further. We discussed the case with Dr. Otero who recommends treatment with PO Vanc and IV Flagyl in addition to admission. We will treat with PO Vanc and IV Flagyl and continue to monitor and reassess while here in the ED. 02/12/19 16:01 CBC is unremarkable. We discussed the case with the admitting team who accepted the patient for admission. *DC/Admit/Observation/Transfer Diagnosis at time of Disposition: Clostridium difficile colitis - Discharge Dispostion Condition at time of disposition: Stable Decision to Admit order: Yes - Referrals - Patient Instructions - Post Discharge Activity
[2019-02-12 15:32] LABS: BASO % 0.3 % (0-2.0); EOS % 1.7 % (0-4.5); HEMATOCRIT 44.3 % (35.4-49); HEMOGLOBIN 14.8 GM/dL (11.7-16.9); LYMPH % 13.9 % (8-40); MCH 30.4 pg (25.7-33.7); MCHC 33.3 g/dl (32.0-35.9); MEAN CELL VOLUME 91.4 fl (80-96); MEAN PLT VOLUME 7.3 fl (7.5-11.1); MONO % 10.2 % (3.8-10.2); NEUT % 73.9 % (42.8-82.8); PLATELET COUNT 192 K/MM3 (134-434); RBC 4.85 M/mm3 (4.00-5.60); RDW 14.7 % (11.9-15.9); WHITE BLOOD COUNT 9.9 K/mm3 (4.0-10.0)
[2019-02-12] MEDS ORDERED: VANCOMYCIN 250 MG/5 ML ORAL SOLUTION PO ONE (15:39)
--- NOTE | 2019-02-12 15:54 | CON.ID ---
Consult Consult Specialty:: infectious diseases Referred by:: Reason for Consultation:: dirrhoea colitis - History of Present Illness Chief Complaint: abd pain dirrhoea History of Present Illness: 68 year old male with a history of HLD, C.Diff who presents for evaluation of diarrhea. The patient tested positive on an outpatient basis for c.diff has has been managed on PO Vanc which he finished 4-5 days ago. He reports that he has had worsening symptoms including frequent watery bowel movements up to 15 times a day. The patient reports subjective fevers and chills as well as mild abdominal discomfort but otherwise denies SOB, chest pain, nausea, vomiting, or changes with urination. patient was diagnosed with cdiff and was treated - History Source History Provided By: Patient Limitations to Obtaining History: No Limitations - Alcohol/Substance Use Hx Alcohol Use: No - Smoking History Smoking history: Former smoker Have you smoked in the past 12 months: No Home Medications - Allergies Allergies/Adverse Reactions: Allergies Allergy/AdvReac Type Severity Reaction Status Date / Time Penicillins Allergy Verified 01/19/19 16:54 - Home Medications Home Medications: Ambulatory Orders Atorvastatin Ca [Lipitor] 20 mg PO HS 07/01/18 Albuterol Sulfate Inhaler - [Ventolin Hfa Inhaler -] 1 - 2 inh PO QID 12/11/18 Zolpidem Tartrate [Ambien] 10 mg PO HS 12/16/18 Review of Systems - Review of Systems Constitutional: reports: Fever Eyes: reports: No Symptoms HENT: reports: No Symptoms Neck: reports: No Symptoms Cardiovascular: reports: No Symptoms Respiratory: reports: No Symptoms Gastrointestinal: reports: Abdominal Pain, Diarrhea Genitourinary: reports: No Symptoms Musculoskeletal: reports: No Symptoms Integumentary: reports: No Symptoms Neurological: reports: No Symptoms Endocrine: reports: No Symptoms Hematology/Lymphatic: reports: No Symptoms Psychiatric: reports: No Symptoms Physical Exam Vital Signs: Vital Signs Temperature 99.3 F 02/12/19 14:14 Pulse Rate 86 02/12/19 14:14 Respiratory Rate 18 02/12/19 14:14 Blood Pressure 144/72 02/12/19 14:14 O2 Sat by Pulse Oximetry (%) 97 02/12/19 14:52 Constitutional: Yes: No Distress, Calm Eyes: Yes: Conjunctiva Clear HENT: Yes: Atraumatic, Normocephalic Neck: Yes: Supple, Trachea Midline Cardiovascular: Yes: Regular Rate and Rhythm Respiratory: Yes: Regular, CTA Bilaterally Gastrointestinal: Yes: Soft, Hypoactive Bowel Sounds Musculoskeletal: Yes: WNL Extremities: Yes: WNL Wound/Incision: Yes: Clean/Dry Neurological: Yes: Alert, Oriented Psychiatric: Yes: Alert, Oriented Labs: CBC, BMP 02/12/19 15:14 Imaging - Results Chest X-ray: Report Reviewed, Image Reviewed Assessment/Plan will start patient on iv flagyl and oral vanco will order a cdiff if cdiff is negative then will start iv abx
[2019-02-12 16:04] LABS: ALBUMIN 3.5 g/dl (3.4-5.0); ALK PHOS 53 U/L (45-117); ANION GAP 8 MMOL/L (8-16); BLOOD UREA NITROGEN 19 mg/dL (7-18); CALCIUM 8.8 mg/dL (8.5-10.1); CHLORIDE 108 mmol/L (98-107); CO2 22 mmol/L (21-32); CREATININE 1.4 mg/dL (0.55-1.3); GLUCOSE,RANDOM 109 mg/dL (74-106); POTASSIUM 3.6 mmol/L (3.5-5.1); SGOT/AST 29 U/L (15-37); SGPT/ALT 57 U/L (13-61); SODIUM 137 mmol/L (136-145); TOT PROT 6.8 g/dl (6.4-8.2)
--- NOTE | 2019-02-12 16:14 | PDOC ---
Attending Attestation - HPI HPI: 02/12/19 16:15 The patient is a 68 year old male with a significant past medical history of asthma, hyperlipidemia and C.diff who presents to the emergency department with diarrhea for several days. The patient reports that he was recently tested positive for C. diff and treated with antibiotics which finished about 5 days ao. The patient reports that he has been experiencing about 15 episodes of diarrhea a day since then. He states that he followed up with his ID doctor by which he was told to come to the ED for admission for IV treatment. He reports some associated fever and chills with his diarrhea as well as abdominal discomfort. The patient denies any other symptoms or complaints. - Physicial Exam PE: 02/12/19 16:15 Vitals: Triage vital signs reviewed General Appearance: No acute distress, well nourished, well developed Head: Atraumatic Neck: Supple; No nuchal rigidity Chest Wall: Nontender Cardiac: Regular rate and rhythm, no murmurs, no rubs, no gallops Lungs: Clear to auscultation bilateral, good air movement bilaterally Abdomen: Soft, nondistended, normal bowel sounds, nontender to palpation Extremities: Full range of motion to all extremities, no cyanosis, clubbing, or edema Skin: Warm and dry, no rashes or lesions, no rash, no petechiae Neuro: AOX3; Cranial Nerves 2-12 grossly intact, Strength intact to all extremities, Sensation intact to all extremities, gait normal Psych: Normal mood, normal affect <Milagros Jernigan - Last Filed: 02/12/19 16:15> - Resident Resident Name: Kennedy Ochoa - ED Attending Attestation I have performed the following: I have examined & evaluated the patient, The case was reviewed & discussed with the resident, I agree w/resident's findings & plan, Exceptions are as noted - Medical Decision Making 02/15/19 14:55 Patient with known C. difficile failed outpatient antibiotics Infectious diseases been consult. We'll movement the hospital for further management. <Ubaldo Mcmahon - Last Filed: 02/15/19 14:55> Attestations - Attestations 02/12/19 16:15 Documentation prepared by Milagros Jernigan, acting as biomedical repair technician for Ubaldo Mcmahon MD. <Milagros Jernigan - Last Filed: 02/12/19 16:15>
[2019-02-12] MEDS ORDERED: metroNIDAZOLE 500 MG PREMIXED 1,000 MG/200 ML MG IVPB ONE (21:50)
[2019-02-13 00:10] VITALS: BMI 33.3
[2019-02-13] MEDS: VANCOMYCIN 250 MG/5 ML ORAL SOLUTION PO SCH ×4 (00:15→17:21)
[2019-02-13] MEDS ORDERED: PT OWN MED DRAWER 7, Y5N ONE ×2 (06:03→06:21)
--- NOTE | 2019-02-13 12:00 | HP ---
Admitting History and Physical - Primary Care Physician PCP: Haydee Otero - Admission Chief Complaint: diarrhea History of Present Illness: 68 yrs old male sent from ID for recurrent Cdiff He has PMH asthma, Hyperlipidemia Was in ER frequently for asthma exacerbation and has been having diarrhea for last few weeks- he was evaluated by ID and was started on PO Flagyl- outpt stool tested positive for cdiff Even after completing PO Flagyl, he still continued to have diarrhea-- about 15 times yesterday No blood in stools Subjective fever+ Abd pain No nausea has good appetite Had received Azithromycin in [place] this year for asthma flare History Source: Patient Limitations to Obtaining History: No Limitations - Past Medical History Cardiovascular: Yes: Hyperlipdemia Pulmonary: Yes: Asthma - Smoking History Smoking history: Former smoker Have you smoked in the past 12 months: No If you are a former smoker, when did you quit?: 40 years ago - Alcohol/Substance Use Hx Alcohol Use: No Home Medications - Allergies Allergies/Adverse Reactions: Allergies Allergy/AdvReac Type Severity Reaction Status Date / Time Penicillins Allergy Verified 01/19/19 16:54 - Home Medications Home Medications: Ambulatory Orders Atorvastatin Ca [Lipitor] 20 mg PO HS 07/01/18 Albuterol Sulfate Inhaler - [Ventolin Hfa Inhaler -] 1 - 2 inh PO QID 12/11/18 Zolpidem Tartrate [Ambien] 10 mg PO HS 12/16/18 Review of Systems - Review of Systems Constitutional: denies: Chills, Fever Cardiovascular: denies: Chest Pain Gastrointestinal: reports: Abdominal Pain, Diarrhea. denies: Nausea, Vomiting Physical Examination Vital Signs: Vital Signs Temperature 97.8 F 02/13/19 10:00 Pulse Rate 76 02/13/19 10:00 Respiratory Rate 18 02/13/19 10:00 Blood Pressure 140/72 02/13/19 10:00 O2 Sat by Pulse Oximetry (%) 98 02/13/19 09:00 Constitutional: Yes: No Distress, Calm Cardiovascular: Yes: Regular Rate and Rhythm Respiratory: Yes: CTA Bilaterally Gastrointestinal: Yes: Normal Bowel Sounds, Soft, Abdomen, Obese, Tenderness ( LLQ+) Edema: No Neurological: Yes: Alert, Oriented Psychiatric: Yes: Alert, Oriented Labs: CBC, BMP 02/12/19 15:14 02/12/19 15:14 Imaging - Results Cat Scan: Report Reviewed (CT Abd- colitis) EKG: Image Reviewed (NSR) Problem List - Problems (1) Hyperlipidemia Code(s): E78.5 - HYPERLIPIDEMIA, UNSPECIFIED (2) Insomnia Code(s): G47.00 - INSOMNIA, UNSPECIFIED (3) Clostridium difficile colitis Code(s): A04.72 - ENTEROCOLITIS D/T CLOSTRIDIUM DIFFICILE, NOT SPCF RECUR (4) Asthma Code(s): J45.909 - UNSPECIFIED ASTHMA, UNCOMPLICATED (5) Recurrent Clostridium difficile diarrhea Code(s): A04.71 - ENTEROCOLITIS DUE TO CLOSTRIDIUM DIFFICILE, RECURRENT (6) Recurrent colitis due to Clostridium difficile Code(s): A04.71 - ENTEROCOLITIS DUE TO CLOSTRIDIUM DIFFICILE, RECURRENT Assessment/Plan PLAN recurrent Cdiff had one bm today so far-- watery stool Abd pain may resume diet IV flagyl IV fluids continue with meds CT abd noted OOB daily ID eval noted
[2019-02-13] MEDS ORDERED: ZOLPIDEM TARTRATE 5 MG TABLET PO PRN (12:13)
[2019-02-13] MEDS ORDERED: ALBUTEROL SO4 8 GM HFA INHALER IH PRN (12:13)
[2019-02-13] MEDS: SODIUM CHLORIDE 1,000 ML IV SCH (13:38)
--- NOTE | 2019-02-13 16:21 | PN ---
Progress Note, Physician History of Present Illness: Pt seen and examined. Events noted, lab results reviewed. He reports 2 loose BMs today. Was feeling well up until an hour ago when abdominal pain started, after eating. Remains afebrile. No other complaints. - Current Medication List Current Medications: Active Medications Albuterol Sulfate (Ventolin Hfa Inhaler -) 2 puff IH QID PRN PRN Reason: ASTHMA Atorvastatin Calcium (Lipitor -) 20 mg PO HS [facility] Enoxaparin Sodium (Lovenox -) 40 mg SQ DAILY [facility] Metronidazole (Flagyl 500mg Premixed Ivpb -) 500 mg in 100 mls @ 100 mls/hr IVPB Q8H-IV [facility] Last Admin: 02/13/19 10:07 Dose: 100 mls/hr Sodium Chloride (Normal Saline -) 1,000 mls @ 83 mls/hr IV ASDIR [facility] Last Admin: 02/13/19 13:38 Dose: 83 mls/hr Vancomycin HCl (Vancomycin Oral Solution) 125 mg PO Q6HPO [facility] Last Admin: 02/13/19 12:35 Dose: 125 mg Zolpidem Tartrate (Ambien -) 5 mg PO HS PRN PRN Reason: INSOMNIA - Objective Vital Signs: Vital Signs Temperature 98.0 F 02/13/19 14:42 Pulse Rate 76 02/13/19 14:42 Respiratory Rate 18 02/13/19 10:00 Blood Pressure 137/70 02/13/19 14:42 O2 Sat by Pulse Oximetry (%) 98 02/13/19 09:00 Eyes: Yes: Conjunctiva Clear Cardiovascular: Yes: Regular Rate and Rhythm Respiratory: Yes: CTA Bilaterally Gastrointestinal: Yes: Normal Bowel Sounds, Soft, Abdomen, Obese, Hyperactive Bowel Sounds, Tenderness Genitourinary: Yes: WNL Extremities: Yes: WNL Integumentary: Yes: WNL Neurological: Yes: Alert Labs: CBC, BMP 02/12/19 15:14 02/12/19 15:14 Microbiology 02/12/19 15:14 Blood - Peripheral Venous Blood Culture - Preliminary NO GROWTH OBTAINED AFTER 24 HOURS, INCUBATION TO CONTINUE FOR 4 DAYS. 02/12/19 15:14 Blood - Peripheral Venous Blood Culture - Preliminary NO GROWTH OBTAINED AFTER 24 HOURS, INCUBATION TO CONTINUE FOR 4 DAYS. 02/13/19 05:20 Stool Clostridioides difficile Antigen - Final 02/13/19 05:20 Stool Clostridioides difficile Toxin Assay - Final - ....Imaging Cat Scan: Report Reviewed Problem List - Problems (1) Hyperlipidemia Code(s): E78.5 - HYPERLIPIDEMIA, UNSPECIFIED (2) Recurrent colitis due to Clostridium difficile Code(s): A04.71 - ENTEROCOLITIS DUE TO CLOSTRIDIUM DIFFICILE, RECURRENT Assessment/Plan Colitis Hx of Recurrent C.diff -- Cdiff Ag/toxin neg, blood cultures neg 24hr -- afebrile, wbc normal -- continue current antibiotics for now monitor for continued/worsening abd pain Vitals stable
[2019-02-13] MEDS: PANTOPRAZOLE SODIUM 40 MG VIAL IVPB SCH (17:21)
[2019-02-13] MEDS ORDERED: ACETAMINOPHEN 325 MG TABLET (FP) PO ONE (19:45)
[2019-02-13] MEDS ORDERED: MORPHINE SULFATE 2 MG/ML VIAL IVPUSH ONE (21:33)
[2019-02-13] MEDS: ATORVASTATIN CA 20 MG TABLET (FP) PO SCH (22:21)
[2019-02-14] MEDS: VANCOMYCIN 250 MG/5 ML ORAL SOLUTION PO SCH ×4 (00:15→18:20)
[2019-02-14 07:33] LABS: ANION GAP 7 MMOL/L (8-16); BLOOD UREA NITROGEN 16 mg/dL (7-18); CHLORIDE 107 mmol/L (98-107); CO2 24 mmol/L (21-32); GLUCOSE,RANDOM 104 mg/dL (74-106); POTASSIUM 3.7 mmol/L (3.5-5.1); SODIUM 138 mmol/L (136-145)
[2019-02-14] MEDS: PANTOPRAZOLE SODIUM 40 MG VIAL IVPB SCH (10:21)
[2019-02-14] MEDS: ENOXAPARIN NA (PORCINE) 40 MG/0.4 ML DISP.SYRIN SQ SCH (10:21)
--- NOTE | 2019-02-14 10:32 | PN ---
Progress Note (short form) - Note Progress Note: better had small bm today- more formed abd pain + Vital Signs - 24 hr 02/13/19 02/14/19 02/14/19 22:00 02:58 14:22 Temperature 98.2 F 99.5 F Pulse Rate 79 88 Respiratory 19 Rate Blood Pressure 153/87 141/83 O2 Sat by Pulse 99 Oximetry (%) Current Medications Generic Name Dose Route Start Last Admin Trade Name Freq PRN Reason Stop Dose Admin Albuterol Sulfate 2 puff 02/13/19 12:13 Ventolin Hfa Inhaler - IH QID PRN ASTHMA Atorvastatin Calcium 20 mg 02/13/19 22:00 02/13/19 22:21 Lipitor - PO 20 mg HS [facility] Administration Enoxaparin Sodium 40 mg 02/14/19 10:00 02/14/19 10:21 Lovenox - SQ 40 mg DAILY [facility] Administration Metronidazole 500 mg in 100 mls @ 100 mls/hr 02/12/19 22:00 02/14/19 10:21 Flagyl 500mg Premixed Ivpb - IVPB 100 mls/hr Q8H-IV [facility] Administration Sodium Chloride 1,000 mls @ 83 mls/hr 02/13/19 12:15 02/14/19 15:03 Normal Saline - IV 83 mls/hr ASDIR [facility] Administration Pantoprazole Sodium 40 mg 02/13/19 17:15 02/14/19 10:21 Protonix Iv IVPB 40 mg DAILY [facility] Administration Vancomycin HCl 125 mg 02/13/19 00:00 02/14/19 12:18 Vancomycin Oral Solution PO 125 mg Q6HPO [facility] Administration Zolpidem Tartrate 5 mg 02/13/19 12:13 Ambien - PO HS PRN INSOMNIA Laboratory Results - last 24 hr 02/14/19 06:00 Sodium 138 Potassium 3.7 Chloride 107 Carbon Dioxide 24 Anion Gap 7 L BUN 16 Creatinine 1.0 Creat Clearance w eGFR 74.09 Random Glucose 104 Calcium 8.0 L S1 S2 RRR Lungs clear Abd- soft obese, tender epigatrium and RLQ No edema PLAN on IV flagyl, vanco PO stool cdiff negative check stool studies GI eval continue with meds Problem List - Problems (1) Hyperlipidemia Code(s): E78.5 - HYPERLIPIDEMIA, UNSPECIFIED (2) Insomnia Code(s): G47.00 - INSOMNIA, UNSPECIFIED (3) Clostridium difficile colitis Code(s): A04.72 - ENTEROCOLITIS D/T CLOSTRIDIUM DIFFICILE, NOT SPCF RECUR (4) Asthma Code(s): J45.909 - UNSPECIFIED ASTHMA, UNCOMPLICATED (5) Recurrent Clostridium difficile diarrhea Code(s): A04.71 - ENTEROCOLITIS DUE TO CLOSTRIDIUM DIFFICILE, RECURRENT (6) Recurrent colitis due to Clostridium difficile Code(s): A04.71 - ENTEROCOLITIS DUE TO CLOSTRIDIUM DIFFICILE, RECURRENT
--- NOTE | 2019-02-14 13:44 | CON.GI ---
Consult Consult Specialty:: GI Referred by:: Dr Swati Pretty Reason for Consultation:: Diarrhea - History of Present Illness Chief Complaint: 68 y.o. M with hx of asthma, was in ER in December, early January ; treated with nebulizers and steroids. He believes he was given an antibiotic as well at some point. He was also found to have C. difficile, treated with Vanco qid x 10 days starting 01/12/19. Did well with Vanco and then developed diarrhea x 3 days leading to this admission. Today reports no more diarrhea although still has increased abdominal "rumbling." - History Source History Provided By: Patient, Medical Record Limitations to Obtaining History: No Limitations - Past Medical History Cardio/Vascular: Yes: Hyperlipdemia Pulmonary: Yes: Asthma - Past Surgical History Additional Surgical History: Rotator cuff - Alcohol/Substance Use Hx Alcohol Use: No - Smoking History Smoking history: Former smoker Have you smoked in the past 12 months: No If you are a former smoker, when did you quit?: 40 years ago Home Medications - Allergies Allergies/Adverse Reactions: Allergies Allergy/AdvReac Type Severity Reaction Status Date / Time Penicillins Allergy Verified 01/19/19 16:54 - Home Medications Home Medications: Ambulatory Orders Atorvastatin Ca [Lipitor] 20 mg PO HS 07/01/18 Albuterol Sulfate Inhaler - [Ventolin Hfa Inhaler -] 1 - 2 inh PO QID 12/11/18 Zolpidem Tartrate [Ambien] 10 mg PO HS 12/16/18 Physical Exam-GI Vital Signs: Vital Signs Temperature 98.2 F 02/13/19 22:00 Pulse Rate 79 02/13/19 22:00 Respiratory Rate 19 02/13/19 22:00 Blood Pressure 153/87 02/13/19 22:00 O2 Sat by Pulse Oximetry (%) 99 02/14/19 02:58 Constitutional: Yes: Obese Gastrointestinal Inspection: Yes: WNL ...Auscultate: Yes: Hyperactive Bowel Sounds ...Palpate: Yes: Other (No direct or rebound tenderness appreciated.) Labs: CBC, BMP 02/12/19 15:14 02/14/19 06:00 Imaging - Results Cat Scan: Report Reviewed, Image Reviewed Problem List - Problems (1) Clostridium difficile colitis Code(s): A04.72 - ENTEROCOLITIS D/T CLOSTRIDIUM DIFFICILE, NOT SPCF RECUR Assessment/Plan C difficile colitis with, at present, no peritoneal signs. He appears to be markedly improved on Vancomycin oral and IV metronidazole. Will begin diet, advance as tolerated; if he continues to improve I would recommend a tapering course of Vanco orally over the next 1 to 2 months.
[2019-02-14] MEDS: SODIUM CHLORIDE 1,000 ML IV SCH ×2 (15:03→18:20)
--- NOTE | 2019-02-14 16:41 | PN ---
Progress Note, Physician History of Present Illness: Pt states he feels much better today. Had 2 BMs today, more formed. No abd pain today. Recent temp of 99.5F but no complaints. - Current Medication List Current Medications: Active Medications Albuterol Sulfate (Ventolin Hfa Inhaler -) 2 puff IH QID PRN PRN Reason: ASTHMA Atorvastatin Calcium (Lipitor -) 20 mg PO HS [facility] Last Admin: 02/13/19 22:21 Dose: 20 mg Enoxaparin Sodium (Lovenox -) 40 mg SQ DAILY [facility] Last Admin: 02/14/19 10:21 Dose: 40 mg Metronidazole (Flagyl 500mg Premixed Ivpb -) 500 mg in 100 mls @ 100 mls/hr IVPB Q8H-IV [facility] Last Admin: 02/14/19 10:21 Dose: 100 mls/hr Sodium Chloride (Normal Saline -) 1,000 mls @ 83 mls/hr IV ASDIR [facility] Last Admin: 02/14/19 15:03 Dose: 83 mls/hr Pantoprazole Sodium (Protonix Iv) 40 mg IVPB DAILY [facility] Last Admin: 02/14/19 10:21 Dose: 40 mg Vancomycin HCl (Vancomycin Oral Solution) 125 mg PO Q6HPO [facility] Last Admin: 02/14/19 12:18 Dose: 125 mg Zolpidem Tartrate (Ambien -) 5 mg PO HS PRN PRN Reason: INSOMNIA - Objective Vital Signs: Vital Signs Temperature 99.5 F 02/14/19 14:22 Pulse Rate 88 02/14/19 14:22 Respiratory Rate 19 02/13/19 22:00 Blood Pressure 141/83 02/14/19 14:22 O2 Sat by Pulse Oximetry (%) 99 02/14/19 02:58 Constitutional: Yes: No Distress, Calm Cardiovascular: Yes: Regular Rate and Rhythm Respiratory: Yes: Regular Gastrointestinal: Yes: Normal Bowel Sounds, Soft Genitourinary: Yes: WNL Integumentary: Yes: WNL Neurological: Yes: Alert, Oriented Labs: CBC, BMP 02/12/19 15:14 02/14/19 06:00 Problem List - Problems (1) Hyperlipidemia Code(s): E78.5 - HYPERLIPIDEMIA, UNSPECIFIED (2) Recurrent colitis due to Clostridium difficile Code(s): A04.71 - ENTEROCOLITIS DUE TO CLOSTRIDIUM DIFFICILE, RECURRENT Assessment/Plan Recurrent C. diff Colitis -- clinically improving, stools more formed -- continue current antibiotics for now -- temp of 99.5, continue monitor Pt currently stable
[2019-02-14] MEDS: ATORVASTATIN CA 20 MG TABLET (FP) PO SCH (22:12)
[2019-02-15] MEDS: VANCOMYCIN 250 MG/5 ML ORAL SOLUTION PO SCH ×5 (00:17→22:59)
[2019-02-15] MEDS ORDERED: ACETAMINOPHEN 325 MG TABLET (FP) PO ONE (04:52)
[2019-02-15 08:36] LABS: ALBUMIN 3.3 g/dl (3.4-5.0); ALK PHOS 55 U/L (45-117); ANION GAP 7 MMOL/L (8-16); BILIRUBIN,TOTAL 0.8 mg/dL (0.2-1); BLOOD UREA NITROGEN 12 mg/dL (7-18); CALCIUM 7.9 mg/dL (8.5-10.1); CHLORIDE 109 mmol/L (98-107); CHOLESTEROL 80 mg/dL (50-200); CO2 26 mmol/L (21-32); CREATININE 1.2 mg/dL (0.55-1.3); GLUCOSE,RANDOM 95 mg/dL (74-106); HDL CHOLESTEROL 41 mg/dL (40-60); POTASSIUM 3.6 mmol/L (3.5-5.1); SGOT/AST 25 U/L (15-37); SGPT/ALT 52 U/L (13-61); SODIUM 142 mmol/L (136-145); TOT PROT 6.6 g/dl (6.4-8.2); TRIGLYCERIDES 61 mg/dL (0-150)
--- NOTE | 2019-02-15 10:36 | EKG ---
Test Reason : Blood Pressure : / mmHG Vent. Rate : 074 BPM Atrial Rate : 074 BPM P-R Int : 170 ms QRS Dur : 096 ms QT Int : 380 ms P-R-T Axes : 024 -06 045 degrees QTc Int : 421 ms NORMAL SINUS RHYTHM NORMAL ECG WHEN COMPARED WITH ECG OF 22-DEC-2018 14:10, NO SIGNIFICANT CHANGE WAS FOUND Confirmed by GLORY SOUSA MD ([id number]) on 02/15/2019 10:36:26 AM Referred By: Confirmed By:GLORY SOUSA MD
[2019-02-15] MEDS: ENOXAPARIN NA (PORCINE) 40 MG/0.4 ML DISP.SYRIN SQ SCH (10:43)
[2019-02-15] MEDS: PANTOPRAZOLE SODIUM 40 MG VIAL IVPB SCH (10:43)
--- NOTE | 2019-02-15 11:24 | PN ---
Progress Note (short form) - Note Progress Note: pt seen/ examined feels better more formed stools denies pain low grade temp Vital Signs Temp 98.6 F 02/15/19 06:10 Pulse 90 02/15/19 05:00 Resp 10 02/14/19 20:07 BP 127/67 02/15/19 05:00 Pulse Ox 99 02/14/19 21:00 Intake & Output 02/14/19 02/14/19 02/15/19 11:59 23:59 11:59 Intake Total 350 1200 225 Balance 350 1200 225 Intake: IV 400 Normal Saline - 1,000 ml 400 @ 83 mls/hr IV ASDIR [facility] Rx#:[id number] IVPB 200 Oral 350 600 225 Other: Voiding Method Toilet Toilet Toilet # Unmeasured Voids Void 2 2 Bowel Movement Yes No Active Medications Albuterol Sulfate (Ventolin Hfa Inhaler -) 2 puff IH QID PRN PRN Reason: ASTHMA Atorvastatin Calcium (Lipitor -) 20 mg PO HS [facility] Last Admin: 02/14/19 22:12 Dose: 20 mg Enoxaparin Sodium (Lovenox -) 40 mg SQ DAILY [facility] Last Admin: 02/15/19 10:43 Dose: 40 mg Metronidazole (Flagyl 500mg Premixed Ivpb -) 500 mg in 100 mls @ 100 mls/hr IVPB Q8H-IV [facility] Last Admin: 02/15/19 10:42 Dose: 100 mls/hr Sodium Chloride (Normal Saline -) 1,000 mls @ 83 mls/hr IV [facility]IR [facility] Last Admin: 02/14/19 18:20 Dose: 83 mls/hr Pantoprazole Sodium (Protonix Iv) 40 mg IVPB DAILY [facility] Last Admin: 02/15/19 10:43 Dose: 40 mg Vancomycin HCl (Vancomycin Oral Solution) 125 mg PO Q6HPO [facility] Last Admin: 02/15/19 07:08 Dose: 125 mg Zolpidem Tartrate (Ambien -) 5 mg PO HS PRN PRN Reason: INSOMNIA CBC, BMP 02/12/19 15:14 02/15/19 07:00 Microbiology 02/12/19 15:14 Blood Culture - Preliminary Blood - Peripheral Venous NO GROWTH OBTAINED AFTER 48 HOURS, INCUBATION TO CONTINUE FOR 3 DAYS. 02/12/19 15:14 Blood Culture - Preliminary Blood - Peripheral Venous NO GROWTH OBTAINED AFTER 48 HOURS, INCUBATION TO CONTINUE FOR 3 DAYS. Physical Exam. Awake comfortable S1 S2 RRR Lungs clear Abd- soft obese, non tender. bs + No edema PLAN better stool cdiff negative here GI eval --noted and appreciated continue with meds i/d to follow advance diet as tolerated will follow Problem List - Problems (1) Clostridium difficile colitis Code(s): A04.72 - ENTEROCOLITIS D/T CLOSTRIDIUM DIFFICILE, NOT SPCF RECUR
--- NOTE | 2019-02-15 11:51 | PN ---
Progress Note, Physician History of Present Illness: patient stable now soft stools - Current Medication List Current Medications: Active Medications Albuterol Sulfate (Ventolin Hfa Inhaler -) 2 puff IH QID PRN PRN Reason: ASTHMA Atorvastatin Calcium (Lipitor -) 20 mg PO HS [facility] Last Admin: 02/14/19 22:12 Dose: 20 mg Enoxaparin Sodium (Lovenox -) 40 mg SQ DAILY [facility] Last Admin: 02/15/19 10:43 Dose: 40 mg Metronidazole (Flagyl 500mg Premixed Ivpb -) 500 mg in 100 mls @ 100 mls/hr IVPB Q8H-IV [facility] Last Admin: 02/15/19 10:42 Dose: 100 mls/hr Sodium Chloride (Normal Saline -) 1,000 mls @ 83 mls/hr IV ASDIR [facility] Last Admin: 02/14/19 18:20 Dose: 83 mls/hr Pantoprazole Sodium (Protonix Iv) 40 mg IVPB DAILY [facility] Last Admin: 02/15/19 10:43 Dose: 40 mg Vancomycin HCl (Vancomycin Oral Solution) 125 mg PO Q6HPO [facility] Last Admin: 02/15/19 07:08 Dose: 125 mg Zolpidem Tartrate (Ambien -) 5 mg PO HS PRN PRN Reason: INSOMNIA - Objective Vital Signs: Vital Signs Temperature 98.6 F 02/15/19 06:10 Pulse Rate 90 02/15/19 05:00 Respiratory Rate 10 02/14/19 20:07 Blood Pressure 127/67 02/15/19 05:00 O2 Sat by Pulse Oximetry (%) 99 02/14/19 21:00 Constitutional: Yes: No Distress, Calm Cardiovascular: Yes: Regular Rate and Rhythm Respiratory: Yes: Regular, CTA Bilaterally Gastrointestinal: Yes: Normal Bowel Sounds, Soft Musculoskeletal: Yes: WNL Extremities: Yes: WNL Neurological: Yes: Alert, Oriented Psychiatric: Yes: Alert, Oriented Labs: CBC, BMP 02/12/19 15:14 02/15/19 07:00 Assessment/Plan Problem List - Problems (1) Hyperlipidemia Code(s): E78.5 - HYPERLIPIDEMIA, UNSPECIFIED (2) Recurrent colitis due to Clostridium difficile Code(s): A04.71 - ENTEROCOLITIS DUE TO CLOSTRIDIUM DIFFICILE, RECURRENT Assessment/Plan Recurrent C. diff Colitis patient running a low grade temp of 100.2 continue current mgmt will see the temp curve
[2019-02-15] MEDS: SODIUM CHLORIDE 1,000 ML IV SCH (12:19)
--- NOTE | 2019-02-15 16:03 | PN ---
Progress Note (short form) - Note Progress Note: Patient seen No abdominal pain Reports two mushy stools since morning Tm 100.[address] with diffuse colitis Stool C. diff was negative but ? if taken after starting therapy Possible recurrent C. diff - seems to be responding to PO vanco and IV flagyl. Would continue course.
[2019-02-15] MEDS: ATORVASTATIN CA 20 MG TABLET (FP) PO SCH (21:33)
[2019-02-16] MEDS: VANCOMYCIN 250 MG/5 ML ORAL SOLUTION PO SCH ×2 (06:20→12:19)
[2019-02-16] MEDS ORDERED: PANTOPRAZOLE SODIUM 40 MG VIAL IVPUSH SCH (10:00)
--- NOTE | 2019-02-16 11:39 | PN.GI ---
GI Progress Note Subjective: No acute events Diarrhea has resolved describes abdominal soreness - Objective Vital Signs: Vital Signs Temperature 98.3 F 02/16/19 06:24 Pulse Rate 78 02/16/19 06:24 Respiratory Rate 17 02/16/19 06:24 Blood Pressure 125/65 02/16/19 06:24 O2 Sat by Pulse Oximetry (%) 99 02/15/19 21:00 Eyes: No: Sclera Icterus Gastrointestinal Inspection: No: Distention ...Auscultate: Yes: Normoactive Bowel Sounds ...Palpate: Yes: Soft, Tenderness (Mild TTP right abdomen). No: Guarding, Tenderness, Rebound ...Percussion: No: Tympanitic Edema: No (No LE edema) Neurological: Yes: Alert Labs: CBC, BMP 02/12/19 15:14 02/15/19 07:00 Problem List - Problems (1) Clostridium difficile colitis Assessment/Plan: C. Diff toxin and Ag neg however patient has responded well to retreatment of C. Diff Continue Vancomycin 125mg PO q 6 hours for 14 days I discontinued protonix given increased risk of recurrent C. Diff infection with PPI use. He takes diclofenac regularly. I advised that he discuss this with his PMD further as this could lead to increased risk for complications such as PUD. Consider Zantac 150mg once daily as GI prophylaxis if needed Code(s): A04.72 - ENTEROCOLITIS D/T CLOSTRIDIUM DIFFICILE, NOT SPCF RECUR
[2019-02-16] MEDS: ENOXAPARIN NA (PORCINE) 40 MG/0.4 ML DISP.SYRIN SQ SCH (12:12)
--- NOTE | 2019-02-16 12:30 | DS ---
Physical Examination Vital Signs: Vital Signs Temperature 98.3 F 02/16/19 06:24 Pulse Rate 78 02/16/19 06:24 Respiratory Rate 17 02/16/19 06:24 Blood Pressure 125/65 02/16/19 06:24 O2 Sat by Pulse Oximetry (%) 99 02/15/19 21:00 Constitutional: Yes: No Distress, Calm Cardiovascular: Yes: Regular Rate and Rhythm Respiratory: Yes: CTA Bilaterally Gastrointestinal: Yes: Normal Bowel Sounds, Soft, Abdomen, Obese. No: Tenderness Edema: No Labs: CBC, BMP 02/12/19 15:14 02/15/19 07:00 Discharge Summary Reason For Visit: COLITIS DUE TO CLOSTRIDIUM DIFFICILE Current Active Problems Asthma (Acute) Clostridium difficile colitis (Acute) Hyperlipidemia (Acute) Insomnia (Acute) Recurrent Clostridium difficile diarrhea (Acute) Recurrent colitis due to Clostridium difficile (Acute) Hospital Course: Admitted for recurrent Cdiff examined by ID and GI CT abd-- colitis Pt initially on Iv Flagy and PO vanco No further episodes of diarrhea stool-- tested negative for cdiff toxin and antigen Pt will need 14 days of PO vanco Advised to stop NSAIDS, PPI Stable for dc home follow up in office Condition: Stable - Instructions Disposition: HOME - Home Medications Comprehensive Discharge Medication List: Ambulatory Orders Atorvastatin Ca [Lipitor] 20 mg PO HS 07/01/18 Albuterol Sulfate Inhaler - [Ventolin HFA Inhaler -] 1 - 2 inh PO QID 12/11/18 Zolpidem Tartrate [Ambien] 10 mg PO HS 12/16/18 Vancomycin Oral Solution 125 mg PO Q6HPO 14 Days #100 ml 02/16/19
[2019-02-16 12:45] VITALS: BP 120/62; PULSE 72; TEMP 98
--- NOTE | 2019-02-16 13:01 | PN ---
Progress Note, Physician - Current Medication List Current Medications: Active Medications Albuterol Sulfate (Ventolin Hfa Inhaler -) 2 puff IH QID PRN PRN Reason: ASTHMA Atorvastatin Calcium (Lipitor -) 20 mg PO HS [facility] Last Admin: 02/15/19 21:33 Dose: 20 mg Enoxaparin Sodium (Lovenox -) 40 mg SQ DAILY [facility] Last Admin: 02/16/19 12:12 Dose: Not Given Vancomycin HCl (Vancomycin Oral Solution) 125 mg PO Q6HPO [facility] Last Admin: 02/16/19 12:19 Dose: 125 mg Zolpidem Tartrate (Ambien -) 5 mg PO HS PRN PRN Reason: INSOMNIA - Objective Vital Signs: Vital Signs Temperature 98 F 02/16/19 10:00 Pulse Rate 72 02/16/19 10:00 Respiratory Rate 17 02/16/19 10:00 Blood Pressure 120/62 02/16/19 10:00 O2 Sat by Pulse Oximetry (%) 99 02/16/19 10:00 Labs: CBC, BMP 02/12/19 15:14 02/15/19 07:00
== END 2019-02-16 13:47 | disposition home or self-care (01) | DRG 373 ==
LOC: JER 13:56 → JERBED 15:54 → J6S 23:30
PROVIDERS: ADMIT Internal Medicine; ATTEND Internal Medicine
DX: A04.72 Enterocolitis due to Clostridium difficile, not specified as recurrent (principal); E78.5 Hyperlipidemia, unspecified; G47.00 Insomnia, unspecified; J45.909 Unspecified asthma, uncomplicated; E66.9 Obesity, unspecified; Z68.33 Body mass index [BMI] 33.0-33.9, adult
CPT/HCPCS: 36415; 74176-TC; 80048; 80053; 80061; 83036; 83605; 83721; 85025; 87040; 87324; 87449; 93005; 93010; 99284-25; J7030; Q9967

== ENCOUNTER 2019-03-12 08:42 | Inpatient (IN) | payer OTHER, MEDICARE ==
[2019-03-12 08:47] VITALS: BMI 31.6
--- NOTE | 2019-03-12 09:12 | PDOC ---
Attending Attestation - Resident Resident Name: Jluis Nguyen - ED Attending Attestation I have performed the following: I have examined & evaluated the patient, The case was reviewed & discussed with the resident, I agree w/resident's findings & plan, Exceptions are as noted - HPI HPI: 68 yo M history HL, recent admission for C Diff presents with diarrhea. He states he has been having multiple episodes per day, yellow in color and very watery. He has had difficulty tolerating PO as it gives him immediate diarrhea. +Abdominal cramping pain. Denies nausea, vomiting. - Physicial Exam PE: GENERAL: Awake, alert, and fully oriented, in no acute distress HEAD: No signs of trauma EYES: PERRLA, EOMI, sclera anicteric, conjunctiva clear ENT: Auricles normal inspection, hearing grossly normal, nares patent, oropharynx clear without exudates. Moist mucosa NECK: Normal ROM, supple, no lymphadenopathy, JVD, or masses LUNGS: Breath sounds equal, clear to auscultation bilaterally. No wheezes, and no crackles HEART: Regular rate and rhythm, normal S1 and S2, no murmurs, rubs or gallops ABDOMEN: Soft, distended, +diffuse mild tenderness, +hyperactive bowel sounds. No guarding, no rebound. No masses EXTREMITIES: Normal range of motion, no edema. No clubbing or cyanosis. No cords, erythema, or tenderness NEUROLOGICAL: Cranial nerves II through XII grossly intact. Normal speech, normal gait. Motor and sensation intact SKIN: Warm, Dry, normal turgor, no rashes or lesions noted. - Medical Decision Making Pt with recent treeatment for C Diff now returning to the hospital with similar symptoms. Will obtain XR abdomen, as he appears distended. Labs, C Diff antigen , admit.
--- NOTE | 2019-03-12 09:17 | PDOC ---
History of Present Illness - General Chief Complaint: Diarrhea Stated Complaint: C-DIFF, diarrhea Time Seen by Provider: 03/12/19 08:44 History Source: Patient Exam Limitations: No Limitations - History of Present Illness Initial Comments: 03/12/19 09:20 68 yo male pmh of HLD, asthma and recent C diff infection presents to the ED with 3 days of profuse watery diarrhea. Pt was admitted 02/12/2019 for C diff with colitis after outpatient failure of PO vanc, treated with IV metronidozole and PO vanc in hospital with improvement, DC on 14 days PO q6h vanco, last taken 02/26. Pt states 3 days ago the profuse watery diarrhea started again, approx 15X per day, admits to mild abdominal pain and poor PO intake, denies F/C /N/V, back pain, CP, SOB or changes in bladder habits. Past History - Past Medical History Allergies/Adverse Reactions: Allergies Allergy/AdvReac Type Severity Reaction Status Date / Time Penicillins Allergy Verified 03/12/19 08:47 Home Medications: Ambulatory Orders Atorvastatin Ca [Lipitor] 10 mg PO HS 07/01/18 Albuterol Sulfate Inhaler - [Ventolin HFA Inhaler -] 1 - 2 inh PO QID 12/11/18 Zolpidem Tartrate [Ambien] 10 mg PO HS 12/16/18 Baclofen 50 mg PO ASDIR 03/12/19 Asthma: Yes COPD: No GI Disorders: Yes (c diff 2018) Hypercholesterolemia: Yes - Suicide/Smoking/Psychosocial Hx Smoking History: Never smoked Have you smoked in the past 12 months: No If you are a former smoker, when did you quit?: 40 years ago Information on smoking cessation initiated: No Hx Alcohol Use: No Drug/Substance Use Hx: No Substance Use Type: None Review of Systems - Review of Systems Constitutional: No: Chills, Fever *Physical Exam - Vital Signs Last Vital Signs Temp Pulse Resp BP Pulse Ox 98.1 F 90 17 123/74 99 03/12/19 08:45 03/12/19 08:45 03/12/19 08:45 03/12/19 08:45 03/12/19 08:45 ED Treatment Course - LABORATORY CBC & Chemistry Diagram: 03/12/19 08:50 03/12/19 08:50 Medical Decision Making - Medical Decision Making 03/12/19 12:[address] Metz in the ED, agrees to have pt admitted for recurrent C diff infection 03/12/19 14:[address] Otero in [place], states 125 mg oral Vanc q6h indicated and pt will be admitted 03/12/19 14:[address] Easton states flat and upright abdominal x ray shows possible pneumoperitoneum, CTAP ordered and pt taken immediately. CTAP neg for pneumoperitoneum, findings show diffuse colitis without acute change from last CT 02/12 Pt admitted *DC/Admit/Observation/Transfer Diagnosis at time of Disposition: C. difficile diarrhea - Discharge Dispostion Condition at time of disposition: Stable Decision to Admit order: Yes - Referrals - Patient Instructions - Post Discharge Activity
[2019-03-12 09:42] LABS: BASO % 0.3 % (0-2.0); EOS % 1.5 % (0-4.5); HEMATOCRIT 45.6 % (35.4-49); HEMOGLOBIN 14.8 GM/dL (11.7-16.9); LYMPH % 15.3 % (8-40); MCH 29.2 pg (25.7-33.7); MCHC 32.5 g/dl (32.0-35.9); MEAN CELL VOLUME 89.8 fl (80-96); MEAN PLT VOLUME 7.7 fl (7.5-11.1); MONO % 17.8 % (3.8-10.2); NEUT % 65.1 % (42.8-82.8); PLATELET COUNT 240 K/MM3 (134-434); RBC 5.08 M/mm3 (4.00-5.60); RDW 15.2 % (11.9-15.9); WHITE BLOOD COUNT 11.1 K/mm3 (4.0-10.0)
[2019-03-12 10:06] LABS: ALBUMIN 3.8 g/dl (3.4-5.0); BILIRUBIN,TOTAL 0.9 mg/dL (0.2-1); CALCIUM 8.7 mg/dL (8.5-10.1); CREATININE 1.5 mg/dL (0.55-1.3); POTASSIUM 4.2 mmol/L (3.5-5.1); TOT PROT 7.4 g/dl (6.4-8.2)
[2019-03-12] MEDS ORDERED: SODIUM CHLORIDE 1,000 ML IV STA (11:22)
--- NOTE | 2019-03-12 13:13 | HP ---
Admitting History and Physical - Primary Care Physician PCP: Stella Metz - Admission History of Present Illness: Pt seen/ examined in er Case discussed with Er resident/ Attending chart reviewed Discussed with pt 68 yo male pmh of HLD, asthma and recent C diff infection presents to the ED with 3 days of profuse watery diarrhea. Pt was admitted 02/12/2019 for C diff with colitis after outpatient failure of PO vanc, treated with IV metronidozole and PO vanc in hospital with improvement, DC on 14 days PO q6h vanco, last taken 02/26. Pt states 3 days ago the profuse watery diarrhea started again, approx 15X per day, admits to mild abdominal pain and poor PO intake, denies F/C /N/V, back pain, CP, SOB or changes in bladder habits. History Source: Patient Limitations to Obtaining History: No Limitations - Past Medical History Cardiovascular: Yes: Hyperlipdemia Pulmonary: Yes: Asthma Infectious Disease: Yes: Other (c diff) - Smoking History Smoking history: Never smoked Have you smoked in the past 12 months: No If you are a former smoker, when did you quit?: 40 years ago - Alcohol/Substance Use Hx Alcohol Use: No Home Medications - Allergies Allergies/Adverse Reactions: Allergies Allergy/AdvReac Type Severity Reaction Status Date / Time Penicillins Allergy Verified 03/12/19 08:47 - Home Medications Home Medications: Ambulatory Orders Atorvastatin Ca [Lipitor] 10 mg PO HS 07/01/18 Albuterol Sulfate Inhaler - [Ventolin HFA Inhaler -] 1 - 2 inh PO QID 12/11/18 Zolpidem Tartrate [Ambien] 10 mg PO HS 12/16/18 Baclofen 50 mg PO ASDIR 03/12/19 Review of Systems - Review of Systems Constitutional: reports: Loss of Appetite, Weakness Eyes: reports: No Symptoms Neck: reports: No Symptoms Cardiovascular: reports: No Symptoms Respiratory: reports: No Symptoms Gastrointestinal: reports: Abdominal Pain, Diarrhea Genitourinary: reports: No Symptoms Neurological: reports: No Symptoms Endocrine: reports: No Symptoms Psychiatric: reports: No Symptoms Physical Examination Vital Signs: Vital Signs Temperature 98.1 F 03/12/19 08:45 Pulse Rate 90 03/12/19 08:45 Respiratory Rate 17 03/12/19 08:45 Blood Pressure 123/74 03/12/19 08:45 O2 Sat by Pulse Oximetry (%) 99 03/12/19 08:45 Constitutional: Yes: Mild Distress Eyes: Yes: Conjunctiva Clear HENT: Yes: WNL Neck: Yes: Supple Cardiovascular: Yes: Regular Rate and Rhythm Gastrointestinal: Yes: Soft, Tenderness, Rebound (mild / diffuse / generalized.) Edema: No Neurological: Yes: Alert Psychiatric: Yes: Alert Labs: CBC, BMP 03/12/19 08:50 03/12/19 08:50 Imaging - Results X-ray: Pending Problem List - Problems (1) Recurrent colitis due to Clostridium difficile Code(s): A04.71 - ENTEROCOLITIS DUE TO CLOSTRIDIUM DIFFICILE, RECURRENT Assessment/Plan Fluids Abx c diff precautions i/d to follow pt requesting to see gi also will consult will follow
--- NOTE | 2019-03-12 14:37 | CON.ID ---
Consult Consult Specialty:: infectious diseases Referred by:: Reason for Consultation:: dirrhoea - History of Present Illness Chief Complaint: dirrhoea History of Present Illness: 68 yo male pmh of HLD, asthma and recent C diff infection presents to the ED with 3 days of profuse watery diarrhea. Pt was admitted 02/12/2019 for C diff with colitis after outpatient failure of PO vanc, treated with IV metronidozole and PO vanc in hospital with improvement, DC on 14 days PO q6h vanco, last taken 02/26. Pt states 3 days ago the profuse watery diarrhea started again, approx 15X per day, admits to mild abdominal pain and poor PO intake, denies F/C /N/V, back pain, CP, SOB or changes in bladder habits. - History Source History Provided By: Patient Limitations to Obtaining History: No Limitations - Past Medical History Cardio/Vascular: Yes: Hyperlipdemia Pulmonary: Yes: Asthma - Alcohol/Substance Use Hx Alcohol Use: No - Smoking History Smoking history: Never smoked Have you smoked in the past 12 months: No If you are a former smoker, when did you quit?: 40 years ago Home Medications - Allergies Allergies/Adverse Reactions: Allergies Allergy/AdvReac Type Severity Reaction Status Date / Time Penicillins Allergy Verified 03/12/19 08:47 - Home Medications Home Medications: Ambulatory Orders Atorvastatin Ca [Lipitor] 10 mg PO HS 07/01/18 Albuterol Sulfate Inhaler - [Ventolin HFA Inhaler -] 1 - 2 inh PO QID 12/11/18 Zolpidem Tartrate [Ambien] 10 mg PO HS 12/16/18 Baclofen 50 mg PO ASDIR 03/12/19 Review of Systems - Review of Systems Constitutional: reports: No Symptoms Eyes: reports: No Symptoms HENT: reports: No Symptoms Neck: reports: No Symptoms Cardiovascular: reports: No Symptoms Respiratory: reports: No Symptoms Gastrointestinal: reports: Abdominal Pain, Diarrhea Genitourinary: reports: No Symptoms Musculoskeletal: reports: No Symptoms Integumentary: reports: No Symptoms Neurological: reports: No Symptoms Endocrine: reports: No Symptoms Hematology/Lymphatic: reports: No Symptoms Psychiatric: reports: No Symptoms Physical Exam Vital Signs: Vital Signs Temperature 98.1 F 03/12/19 08:45 Pulse Rate 90 03/12/19 08:45 Respiratory Rate 17 03/12/19 08:45 Blood Pressure 123/74 03/12/19 08:45 O2 Sat by Pulse Oximetry (%) 99 03/12/19 08:45 Constitutional: Yes: Well Nourished, Calm, Mild Distress, Obese Eyes: Yes: Conjunctiva Clear Cardiovascular: Yes: Regular Rate and Rhythm Respiratory: Yes: Regular, CTA Bilaterally Gastrointestinal: Yes: Normal Bowel Sounds, Distention, Tenderness, Other ( dirrhoea) Musculoskeletal: Yes: WNL Extremities: Yes: WNL Neurological: Yes: Alert, Oriented Psychiatric: Yes: Alert, Oriented Labs: CBC, BMP 03/12/19 08:50 03/12/19 08:50 Imaging - Results X-ray: Report Reviewed, Image Reviewed Assessment/Plan Problem List - Problems (1) Hyperlipidemia Code(s): E78.5 - HYPERLIPIDEMIA, UNSPECIFIED (2) Recurrent Clostridium difficile diarrhea Code(s): A04.71 - ENTEROCOLITIS DUE TO CLOSTRIDIUM DIFFICILE, RECURRENT plan will start patient on oral vanco await for all cx report ct scan if cidiff positive then longer treatment
[2019-03-12] MEDS: VANCOMYCIN 250 MG/5 ML ORAL SOLUTION PO SCH (19:28)
[2019-03-12] MEDS ORDERED: ACETAMINOPHEN 325 MG TABLET (FP) PO PRN (21:18)
[2019-03-12] MEDS ORDERED: PATIENT'S OWN MEDICATION (NON-FORMULARY) (Zolpidem Tartrate 10 MG) PO SCH (22:00)
[2019-03-12] MEDS: D5-1/2NS+20 MEQ KCL - 20 MEQ/1,000 ML INFUS.BAG IV SCH (22:19)
[2019-03-12] MEDS: HEPARIN NA (PORCINE) 5,000 UNITS/ML 1ML VIAL SQ SCH (22:19)
[2019-03-12] MEDS: ATORVASTATIN CA 20 MG TABLET (FP) PO SCH (22:20)
[2019-03-12] MEDS: ZOLPIDEM TARTRATE 5 MG TABLET PO PRN (22:20)
[2019-03-13] MEDS: VANCOMYCIN 250 MG/5 ML ORAL SOLUTION PO SCH ×5 (01:01→23:35)
[2019-03-13 08:12] LABS: BASO % 0.3 % (0-2.0); EOS % 2.2 % (0-4.5); HEMATOCRIT 41.9 % (35.4-49); HEMOGLOBIN 14.2 GM/dL (11.7-16.9); LYMPH % 13.7 % (8-40); MCHC 33.8 g/dl (32.0-35.9); MEAN CELL VOLUME 88.7 fl (80-96); MEAN PLT VOLUME 7.5 fl (7.5-11.1); MONO % 16.6 % (3.8-10.2); NEUT % 67.2 % (42.8-82.8); PLATELET COUNT 226 K/MM3 (134-434); RBC 4.72 M/mm3 (4.00-5.60); RDW 15.2 % (11.9-15.9); WHITE BLOOD COUNT 9.1 K/mm3 (4.0-10.0)
[2019-03-13] MEDS: D5-1/2NS+20 MEQ KCL - 20 MEQ/1,000 ML INFUS.BAG IV SCH ×2 (08:16→22:01)
[2019-03-13 08:50] LABS: ALBUMIN 3.3 g/dl (3.4-5.0); CALCIUM 8.1 mg/dL (8.5-10.1); CREATININE 1.1 mg/dL (0.55-1.3); MAGNESIUM 2.2 mg/dL (1.8-2.4); POTASSIUM 3.6 mmol/L (3.5-5.1); TOT PROT 6.5 g/dl (6.4-8.2)
[2019-03-13] MEDS: HEPARIN NA (PORCINE) 5,000 UNITS/ML 1ML VIAL SQ SCH ×2 (09:37→22:00)
--- NOTE | 2019-03-13 11:42 | PN ---
Progress Note (short form) - Note Progress Note: 4 bm so far-- soft stools per RN cramping pain in abdomen No nausea Vital Signs - 24 hr 03/12/19 03/12/19 03/13/19 19:32 20:38 06:31 Temperature 98.2 F 101.2 F H Pulse Rate 76 92 H Pulse Rate [ 80 Left Radial] Respiratory 18 20 20 Rate Blood Pressure 138/70 188/66 H Blood Pressure 126/78 [Left Arm] O2 Sat by Pulse 97 Oximetry (%) 03/13/19 09:00 Temperature 98.4 F Pulse Rate 87 Pulse Rate [ Left Radial] Respiratory 20 Rate Blood Pressure 116/53 L Blood Pressure [Left Arm] O2 Sat by Pulse Oximetry (%) Current Medications Generic Name Dose Route Start Last Admin Trade Name Freq PRN Reason Stop Dose Admin Acetaminophen 650 mg 03/12/19 21:18 03/13/19 06:39 Tylenol - PO 650 mg Q4H PRN Administration PAIN LEVEL 1-5 Atorvastatin Calcium 10 mg 03/12/19 22:00 03/12/19 22:20 Lipitor - PO Not Given HS VIOLA Heparin Sodium (Porcine) 5,000 unit 03/12/19 22:00 03/13/19 09:37 Heparin - SQ 5,000 unit BID VIOLA Administration Potassium Chloride/Dextrose/Sod Cl 20 meq in 1,000 mls @ 100 mls/hr 03/12/19 21:30 03/13/19 08:16 D5-1/2ns+20 Meq Kcl - IV 100 mls/hr ASDIR VIOLA Administration Vancomycin HCl 125 mg 03/12/19 18:00 03/13/19 06:12 Vancomycin Oral Solution PO 125 mg Q6HPO VIOLA Administration Zolpidem Tartrate 5 mg 03/12/19 13:27 03/12/19 22:20 Ambien - PO 5 mg HS PRN Administration insomnia Laboratory Results - last 24 hr 03/13/19 03/13/19 07:45 07:45 WBC 9.1 RBC 4.72 Hgb 14.2 Hct 41.9 MCV 88.7 MCH 30.0 MCHC 33.8 RDW 15.2 Plt Count 226 MPV 7.5 Absolute Neuts (auto) 6.2 Neutrophils % 67.2 Lymphocytes % 13.7 Monocytes % 16.6 H Eosinophils % 2.2 Basophils % 0.3 Nucleated RBC % 0 Sodium 136 Potassium 3.6 Chloride 108 H Carbon Dioxide 20 L Anion Gap 9 BUN 15 Creatinine 1.1 Est GFR (CKD-EPI)AfAm 78.97 Est GFR (CKD-EPI)NonAf 68.13 Random Glucose 126 H Calcium 8.1 L Magnesium 2.2 Total Bilirubin 1.0 AST 23 ALT 50 Alkaline Phosphatase 53 Total Protein 6.5 Albumin 3.3 L S1 S2 RRR Lungs clear Abd- soft, obese, tender+ no edema PLAN PO Vanco GI eval CT abd- noted continue with clears Problem List - Problems (1) C. difficile diarrhea Code(s): A04.72 - ENTEROCOLITIS D/T CLOSTRIDIUM DIFFICILE, NOT SPCF RECUR (2) Clostridium difficile colitis Code(s): A04.72 - ENTEROCOLITIS D/T CLOSTRIDIUM DIFFICILE, NOT SPCF RECUR (3) Hyperlipidemia Code(s): E78.5 - HYPERLIPIDEMIA, UNSPECIFIED
--- NOTE | 2019-03-13 11:56 | CON.GI ---
Consult Consult Specialty:: GI Referred by:: Dr Stella Metz Reason for Consultation:: recurrent C difficile colitis - History of Present Illness Chief Complaint: diarrhea History of Present Illness: 68 y.o. M with recent hospitalization for C. difficile colitis. Was treated successfully with IV metronidazole and oral vancomycin, took approximately 10 days more vancomycin after discharge; last dose 2 weeks ago. Now admitted with recurrent copious diarrhea. - History Source History Provided By: Patient, Medical Record Limitations to Obtaining History: No Limitations - Past Medical History Cardio/Vascular: Yes: Hyperlipdemia Pulmonary: Yes: Asthma Infectious Disease: Yes: Other (c diff) - Alcohol/Substance Use Hx Alcohol Use: No - Smoking History Smoking history: Never smoked Have you smoked in the past 12 months: No If you are a former smoker, when did you quit?: 40 years ago Home Medications - Allergies Allergies/Adverse Reactions: Allergies Allergy/AdvReac Type Severity Reaction Status Date / Time Penicillins Allergy Verified 03/12/19 08:47 - Home Medications Home Medications: Ambulatory Orders Atorvastatin Ca [Lipitor] 10 mg PO HS 07/01/18 Albuterol Sulfate Inhaler - [Ventolin HFA Inhaler -] 1 - 2 inh PO QID 12/11/18 Zolpidem Tartrate [Ambien] 10 mg PO HS 12/16/18 Baclofen 50 mg PO ASDIR 03/12/19 Physical Exam-GI Vital Signs: Vital Signs Temperature 98.4 F 03/13/19 09:00 Pulse Rate 87 03/13/19 09:00 Respiratory Rate 20 03/13/19 09:00 Blood Pressure 116/53 L 03/13/19 09:00 O2 Sat by Pulse Oximetry (%) 97 03/12/19 19:32 ...Auscultate: Yes: Hyperactive Bowel Sounds Labs: CBC, BMP 03/13/19 07:45 03/13/19 07:45 Imaging - Results Cat Scan: Report Reviewed, Image Reviewed Problem List - Problems (1) C. difficile diarrhea Code(s): A04.72 - ENTEROCOLITIS D/T CLOSTRIDIUM DIFFICILE, NOT SPCF RECUR Assessment/Plan Recurrent C. difficile colitis. Options for management after discharge include: 1) Slowly tapering course of vancomycin as outpatient. 2) Fecal transplant. Would try #1 before attempting #2.
--- NOTE | 2019-03-13 15:55 | PN ---
Progress Note, Physician History of Present Illness: Pt feels slightly better today. Abd cramping relieved by BMs (reports 7 today), no current abd pain. - Current Medication List Current Medications: Active Medications Acetaminophen (Tylenol -) 650 mg PO Q4H PRN PRN Reason: PAIN LEVEL 1-5 Last Admin: 03/13/19 06:39 Dose: 650 mg Atorvastatin Calcium (Lipitor -) 10 mg PO HS [facility] Last Admin: 03/12/19 22:20 Dose: Not Given Heparin Sodium (Porcine) (Heparin -) 5,000 unit SQ BID [facility] Last Admin: 03/13/19 09:37 Dose: 5,000 unit Potassium Chloride/Dextrose/Sod Cl (D5-1/2ns+20 Meq Kcl -) 20 meq in 1,000 mls @ 100 mls/hr IV ASDIR [facility] Last Admin: 03/13/19 08:16 Dose: 100 mls/hr Vancomycin HCl (Vancomycin Oral Solution) 125 mg PO Q6HPO [facility] Last Admin: 03/13/19 12:00 Dose: 125 mg Zolpidem Tartrate (Ambien -) 5 mg PO HS PRN PRN Reason: insomnia Last Admin: 03/12/19 22:20 Dose: 5 mg - Objective Vital Signs: Vital Signs Temperature 98.2 F 03/13/19 15:22 Pulse Rate 88 03/13/19 15:22 Respiratory Rate 20 03/13/19 15:22 Blood Pressure 128/62 03/13/19 15:22 O2 Sat by Pulse Oximetry (%) 97 03/12/19 19:32 Constitutional: Yes: No Distress, Calm Cardiovascular: Yes: Regular Rate and Rhythm Respiratory: Yes: Regular Gastrointestinal: Yes: Normal Bowel Sounds, Soft, Abdomen, Obese Genitourinary: Yes: WNL Integumentary: Yes: WNL Neurological: Yes: Alert, Oriented Labs: CBC, BMP 03/13/19 07:45 03/13/19 07:45 Microbiology 03/12/19 13:29 Stool Clostridioides difficile Antigen - Final 03/12/19 13:29 Stool Clostridioides difficile Toxin Assay - Final Problem List - Problems (1) Hyperlipidemia Code(s): E78.5 - HYPERLIPIDEMIA, UNSPECIFIED (2) Recurrent Clostridium difficile diarrhea Code(s): A04.71 - ENTEROCOLITIS DUE TO CLOSTRIDIUM DIFFICILE, RECURRENT Assessment/Plan Recurrent C. difficile colitis TASNEEM resolved -- pt with mild improvement today -- agree with Vancomycin po taper regimen as follows: 125 mg po QID x 14 days 125 mg po BID x 7 days 125 mg po QD x 7 days 125 mg po Q2D x 4 doses 125 mg po Q3D x 5 doses - continue monitor
[2019-03-13] MEDS: ATORVASTATIN CA 20 MG TABLET (FP) PO SCH (21:59)
[2019-03-13] MEDS: ZOLPIDEM TARTRATE 5 MG TABLET PO PRN (23:35)
[2019-03-14] MEDS: VANCOMYCIN 250 MG/5 ML ORAL SOLUTION PO SCH ×3 (06:20→17:25)
[2019-03-14] MEDS: D5-1/2NS+20 MEQ KCL - 20 MEQ/1,000 ML INFUS.BAG IV SCH ×2 (07:39→16:54)
[2019-03-14 07:58] LABS: BASO % 0.5 % (0-2.0); EOS % 4.5 % (0-4.5); HEMATOCRIT 40.9 % (35.4-49); HEMOGLOBIN 13.9 GM/dL (11.7-16.9); LYMPH % 22.3 % (8-40); MCH 30.1 pg (25.7-33.7); MCHC 33.9 g/dl (32.0-35.9); MEAN CELL VOLUME 88.9 fl (80-96); MEAN PLT VOLUME 7.4 fl (7.5-11.1); NEUT % 59.7 % (42.8-82.8); PLATELET COUNT 236 K/MM3 (134-434); RDW 15.1 % (11.9-15.9); WHITE BLOOD COUNT 7.9 K/mm3 (4.0-10.0)
[2019-03-14 08:19] LABS: ALBUMIN 3.2 g/dl (3.4-5.0); BILIRUBIN,TOTAL 0.6 mg/dL (0.2-1); CALCIUM 8.1 mg/dL (8.5-10.1); CREATININE 1.1 mg/dL (0.55-1.3); POTASSIUM 3.7 mmol/L (3.5-5.1); TOT PROT 6.5 g/dl (6.4-8.2)
[2019-03-14] MEDS: HEPARIN NA (PORCINE) 5,000 UNITS/ML 1ML VIAL SQ SCH ×2 (09:37→21:55)
--- NOTE | 2019-03-14 09:56 | PN ---
Progress Note (short form) - Note Progress Note: 2 bm so far--loose stools per RN no pain in abdomen No nausea feeling hungry Vital Signs - 24 hr 03/13/19 03/13/19 03/13/19 16:41 21:00 22:00 Temperature 98.1 F 98.2 F Pulse Rate 70 84 Respiratory 20 20 20 Rate Blood Pressure 132/73 130/70 03/14/19 03/14/19 03/14/19 06:26 08:10 14:52 Temperature 98.4 F 98.3 F 98.6 F Pulse Rate 64 65 73 Respiratory 20 20 18 Rate Blood Pressure 106/66 143/92 108/50 L Current Medications Generic Name Dose Route Start Last Admin Trade Name Freq PRN Reason Stop Dose Admin Acetaminophen 650 mg 03/12/19 21:18 03/13/19 06:39 Tylenol - PO 650 mg Q4H PRN Administration PAIN LEVEL 1-5 Atorvastatin Calcium 10 mg 03/12/19 22:00 03/13/19 21:59 Lipitor - PO 10 mg HS VIOLA Administration Heparin Sodium (Porcine) 5,000 unit 03/12/19 22:00 03/14/19 09:37 Heparin - SQ Not Given BID VIOLA Potassium Chloride/Dextrose/Sod Cl 20 meq in 1,000 mls @ 100 mls/hr 03/12/19 21:30 03/14/19 07:39 D5-1/2ns+20 Meq Kcl - IV 100 mls/hr ASDIR VIOLA Administration Vancomycin HCl 125 mg 03/12/19 18:00 03/14/19 13:20 Vancomycin Oral Solution PO 125 mg Q6HPO VIOLA Administration Zolpidem Tartrate 5 mg 03/12/19 13:27 03/13/19 23:35 Ambien - PO 5 mg HS PRN Administration insomnia Laboratory Results - last 24 hr 03/14/19 03/14/19 07:00 07:00 WBC 7.9 RBC 4.60 Hgb 13.9 Hct 40.9 MCV 88.9 MCH 30.1 MCHC 33.9 RDW 15.1 Plt Count 236 MPV 7.4 L Absolute Neuts (auto) 4.7 Neutrophils % 59.7 Lymphocytes % 22.3 D Monocytes % 13.0 H Eosinophils % 4.5 D Basophils % 0.5 Nucleated RBC % 0 Sodium 140 Potassium 3.7 Chloride 110 H Carbon Dioxide 24 Anion Gap 6 L BUN 8 Creatinine 1.1 Est GFR (CKD-EPI)AfAm 78.97 Est GFR (CKD-EPI)NonAf 68.13 Random Glucose 115 H Calcium 8.1 L Total Bilirubin 0.6 AST 30 ALT 55 Alkaline Phosphatase 58 Total Protein 6.5 Albumin 3.2 L S1 S2 RRR Lungs clear Abd- soft, obese, tender+ no edema PLAN PO Vanco GI - spoke with GI -- will need transplant case manager to inquire whether pt may be able to get PO Vanco liquid as outpt-- he will need it for longer duration CT abd- noted dc iv fluids advance diet Problem List - Problems (1) C. difficile diarrhea Code(s): A04.72 - ENTEROCOLITIS D/T CLOSTRIDIUM DIFFICILE, NOT SPCF RECUR (2) Clostridium difficile colitis Code(s): A04.72 - ENTEROCOLITIS D/T CLOSTRIDIUM DIFFICILE, NOT SPCF RECUR (3) Hyperlipidemia Code(s): E78.5 - HYPERLIPIDEMIA, UNSPECIFIED
--- NOTE | 2019-03-14 10:47 | PN ---
Progress Note (short form) - Note Progress Note: Having fewer bowel movements -- 7 in all yesterday. Feels like eating today. Will advance diet. Anticipate he should be able to be discharged tomorrow if he continues to respond to oral vancomycin. Tapering schedule of oral vanco discussed with patient and Dr Bonilla. Problem List - Problems (1) C. difficile diarrhea Code(s): A04.72 - ENTEROCOLITIS D/T CLOSTRIDIUM DIFFICILE, NOT SPCF RECUR
[2019-03-14] MEDS ORDERED: PT OWN MED DRAWER 7, Y5N ONE ×2 (11:50→13:18)
--- NOTE | 2019-03-14 15:29 | PN ---
Progress Note, Physician History of Present Illness: Pt states he feels much better today, no current abd pain. 3 episodes of unformed BMs today. No other complaints. Diet being advanced. - Current Medication List Current Medications: Active Medications Acetaminophen (Tylenol -) 650 mg PO Q4H PRN PRN Reason: PAIN LEVEL 1-5 Last Admin: 03/13/19 06:39 Dose: 650 mg Atorvastatin Calcium (Lipitor -) 10 mg PO HS [facility] Last Admin: 03/13/19 21:59 Dose: 10 mg Heparin Sodium (Porcine) (Heparin -) 5,000 unit SQ BID [facility] Last Admin: 03/14/19 09:37 Dose: Not Given Potassium Chloride/Dextrose/Sod Cl (D5-1/2ns+20 Meq Kcl -) 20 meq in 1,000 mls @ 100 mls/hr IV ASDIR [facility] Last Admin: 03/14/19 07:39 Dose: 100 mls/hr Vancomycin HCl (Vancomycin Oral Solution) 125 mg PO Q6HPO [facility] Last Admin: 03/14/19 13:20 Dose: 125 mg Zolpidem Tartrate (Ambien -) 5 mg PO HS PRN PRN Reason: insomnia Last Admin: 03/13/19 23:35 Dose: 5 mg - Objective Vital Signs: Vital Signs Temperature 98.6 F 03/14/19 14:52 Pulse Rate 73 03/14/19 14:52 Respiratory Rate 18 03/14/19 14:52 Blood Pressure 108/50 L 03/14/19 14:52 O2 Sat by Pulse Oximetry (%) 97 03/12/19 19:32 Constitutional: Yes: No Distress Cardiovascular: Yes: Regular Rate and Rhythm Respiratory: Yes: Regular Gastrointestinal: Yes: Normal Bowel Sounds, Soft Genitourinary: Yes: WNL Integumentary: Yes: WNL Neurological: Yes: Alert, Oriented Labs: CBC, BMP 03/14/19 07:00 03/14/19 07:00 Microbiology 03/12/19 13:29 Stool Clostridioides difficile Antigen - Final 03/12/19 13:29 Stool Clostridioides difficile Toxin Assay - Final Problem List - Problems (1) Hyperlipidemia Code(s): E78.5 - HYPERLIPIDEMIA, UNSPECIFIED (2) Recurrent Clostridium difficile diarrhea Code(s): A04.71 - ENTEROCOLITIS DUE TO CLOSTRIDIUM DIFFICILE, RECURRENT Assessment/Plan Recurrent C. difficile colitis TASNEEM resolved -- pt feels better, appears to be clinically improving -- afebrile, no leukocytosis -- continue Vancomycin taper schedule as outlined in previous note
[2019-03-14] MEDS: ZOLPIDEM TARTRATE 5 MG TABLET PO PRN (21:55)
[2019-03-14] MEDS: ATORVASTATIN CA 20 MG TABLET (FP) PO SCH (21:55)
[2019-03-15] MEDS: VANCOMYCIN 250 MG/5 ML ORAL SOLUTION PO SCH ×4 (00:53→17:53)
[2019-03-15 06:41] LABS: BASO % 0.5 % (0-2.0); EOS % 5.3 % (0-4.5); HEMATOCRIT 40.8 % (35.4-49); LYMPH % 27.5 % (8-40); MCH 30.1 pg (25.7-33.7); MCHC 34.2 g/dl (32.0-35.9); MEAN CELL VOLUME 88.1 fl (80-96); MEAN PLT VOLUME 7.1 fl (7.5-11.1); MONO % 13.3 % (3.8-10.2); NEUT % 53.4 % (42.8-82.8); PLATELET COUNT 241 K/MM3 (134-434); RBC 4.63 M/mm3 (4.00-5.60); RDW 14.8 % (11.9-15.9); WHITE BLOOD COUNT 7.2 K/mm3 (4.0-10.0)
[2019-03-15 07:13] LABS: ALBUMIN 3.2 g/dl (3.4-5.0); BILIRUBIN,TOTAL 0.5 mg/dL (0.2-1); CALCIUM 8.3 mg/dL (8.5-10.1); POTASSIUM 3.8 mmol/L (3.5-5.1); TOT PROT 6.4 g/dl (6.4-8.2)
--- NOTE | 2019-03-15 09:53 | PN ---
Progress Note, Physician History of Present Illness: says he still has dirrhoea gi on case - Current Medication List Current Medications: Active Medications Acetaminophen (Tylenol -) 650 mg PO Q4H PRN PRN Reason: PAIN LEVEL 1-5 Last Admin: 03/13/19 06:39 Dose: 650 mg Atorvastatin Calcium (Lipitor -) 10 mg PO HS [facility] Last Admin: 03/14/19 21:55 Dose: 10 mg Heparin Sodium (Porcine) (Heparin -) 5,000 unit SQ BID [facility] Last Admin: 03/14/19 21:55 Dose: 5,000 unit Potassium Chloride/Dextrose/Sod Cl (D5-1/2ns+20 Meq Kcl -) 20 meq in 1,000 mls @ 70 mls/hr IV ASDIR [facility] Last Admin: 03/14/19 16:54 Dose: 70 mls/hr Vancomycin HCl (Vancomycin Oral Solution) 125 mg PO Q6HPO [facility] Last Admin: 03/15/19 05:53 Dose: 125 mg Zolpidem Tartrate (Ambien -) 5 mg PO HS PRN PRN Reason: insomnia Last Admin: 03/14/19 21:55 Dose: 5 mg - Objective Vital Signs: Vital Signs Temperature 98.5 F 03/15/19 07:16 Pulse Rate 67 03/15/19 07:16 Respiratory Rate 20 03/15/19 07:16 Blood Pressure 133/73 03/15/19 07:16 O2 Sat by Pulse Oximetry (%) 99 03/14/19 21:00 Constitutional: Yes: No Distress, Calm, Obese Cardiovascular: Yes: Regular Rate and Rhythm Respiratory: Yes: Regular, CTA Bilaterally Gastrointestinal: Yes: Normal Bowel Sounds, Tenderness Musculoskeletal: Yes: WNL Extremities: Yes: WNL Neurological: Yes: Alert, Oriented Psychiatric: Yes: Alert, Oriented Labs: CBC, BMP 03/15/19 05:30 03/15/19 05:30 Assessment/Plan Problem List - Problems (1) Hyperlipidemia Code(s): E78.5 - HYPERLIPIDEMIA, UNSPECIFIED (2) Recurrent Clostridium difficile diarrhea Code(s): A04.71 - ENTEROCOLITIS DUE TO CLOSTRIDIUM DIFFICILE, RECURRENT plan continue current mgmt monitor for dirrhoea
[2019-03-15] MEDS: HEPARIN NA (PORCINE) 5,000 UNITS/ML 1ML VIAL SQ SCH ×2 (09:54→21:07)
--- NOTE | 2019-03-15 12:14 | PN ---
Progress Note (short form) - Note Progress Note: pt seen/ examined chart reviewed awake/ comfortable still complains of diarrhea overall looks better Vital Signs Temp 97.8 F 03/15/19 09:00 Pulse 77 03/15/19 09:00 Resp 18 03/15/19 09:00 BP 139/73 03/15/19 09:00 Pulse Ox 99 03/14/19 21:00 Intake & Output 03/14/19 03/15/19 03/15/19 23:59 11:59 23:59 Intake Total 1879 Balance 1879 Intake: IV 1099 D5-1/2NS+20 MEQ KCL - 20 1099 meq In 1,000 ml @ 100 mls /hr IV ASDIR VIOLA Rx#: [id number] Oral 780 Other: Voiding Method Toilet Toilet # Unmeasured Voids Void 1 3 Bowel Movement Yes: 1 Yes # Bowel Movements 1 Active Medications Acetaminophen (Tylenol -) 650 mg PO Q4H PRN PRN Reason: PAIN LEVEL 1-5 Last Admin: 03/13/19 06:39 Dose: 650 mg Atorvastatin Calcium (Lipitor -) 10 mg PO HS VIOLA Last Admin: 03/14/19 21:55 Dose: 10 mg Heparin Sodium (Porcine) (Heparin -) 5,000 unit SQ BID VIOLA Last Admin: 03/15/19 09:54 Dose: Not Given Potassium Chloride/Dextrose/Sod Cl (D5-1/2ns+20 Meq Kcl -) 20 meq in 1,000 mls @ 70 mls/hr IV ASDIR VIOLA Last Admin: 03/14/19 16:54 Dose: 70 mls/hr Vancomycin HCl (Vancomycin Oral Solution) 125 mg PO Q6HPO VIOLA Last Admin: 03/15/19 05:53 Dose: 125 mg Zolpidem Tartrate (Ambien -) 5 mg PO HS PRN PRN Reason: insomnia Last Admin: 03/14/19 21:55 Dose: 5 mg CBC, BMP 03/15/19 05:30 03/15/19 05:30 Physical Exam awake/ comfortable S1 S2 RRR Lungs clear Abd- soft, obese, non tender . Bs + no edema PLAN better PO Vanco monitor today per i/d if better anticipate d/c on po vanco- tomorrow discussed with pt and nursing staff as well as i/d will follow Problem List - Problems (1) Recurrent colitis due to Clostridium difficile Code(s): A04.71 - ENTEROCOLITIS DUE TO CLOSTRIDIUM DIFFICILE, RECURRENT
--- NOTE | 2019-03-15 13:42 | PN ---
Progress Note (short form) - Note Progress Note: Patient seen and examined Labs reviewed Second recurrence of C. diff Completed second 10 day course of vancomycin, about two weeks later symptoms recurred Thinks symptoms are improving but slowly Vital Signs Temp 97.8 F 03/15/19 09:00 Pulse 77 03/15/19 09:00 Resp 18 03/15/19 09:00 BP 139/73 03/15/19 09:00 Pulse Ox 99 03/14/19 21:00 NAD CBC, BMP 03/15/19 05:30 03/15/19 05:30 Recurrent C. difficile diarrhea - slowly improving Continue vancomycin 125mg q6h If improves, should be discharged on prolonged taper If does not improve, can consider change to fidaxomycin
[2019-03-15] MEDS: D5-1/2NS+20 MEQ KCL - 20 MEQ/1,000 ML INFUS.BAG IV SCH (17:53)
[2019-03-15] MEDS: ATORVASTATIN CA 20 MG TABLET (FP) PO SCH (21:07)
[2019-03-15] MEDS: ZOLPIDEM TARTRATE 5 MG TABLET PO PRN (22:57)
[2019-03-16] MEDS: VANCOMYCIN 250 MG/5 ML ORAL SOLUTION PO SCH ×3 (00:02→11:50)
[2019-03-16 06:48] VITALS: TEMP 98.6
--- NOTE | 2019-03-16 08:56 | PN ---
Progress Note, Physician History of Present Illness: stable no new issues says dirrhoea has become better - Current Medication List Current Medications: Active Medications Acetaminophen (Tylenol -) 650 mg PO Q4H PRN PRN Reason: PAIN LEVEL 1-5 Last Admin: 03/13/19 06:39 Dose: 650 mg Atorvastatin Calcium (Lipitor -) 10 mg PO HS [facility] Last Admin: 03/15/19 21:07 Dose: 10 mg Heparin Sodium (Porcine) (Heparin -) 5,000 unit SQ BID [facility] Last Admin: 03/15/19 21:07 Dose: Not Given Potassium Chloride/Dextrose/Sod Cl (D5-1/2ns+20 Meq Kcl -) 20 meq in 1,000 mls @ 70 mls/hr IV ASDIR [facility] Last Admin: 03/15/19 17:53 Dose: Not Given Vancomycin HCl (Vancomycin Oral Solution) 125 mg PO Q6HPO [facility] Last Admin: 03/16/19 05:45 Dose: 125 mg Zolpidem Tartrate (Ambien -) 5 mg PO HS PRN PRN Reason: insomnia Last Admin: 03/15/19 22:57 Dose: 5 mg - Objective Vital Signs: Vital Signs Temperature 98.6 F 03/16/19 06:47 Pulse Rate 66 03/16/19 06:47 Respiratory Rate 20 03/16/19 06:47 Blood Pressure 133/72 03/16/19 06:47 O2 Sat by Pulse Oximetry (%) 97 03/15/19 21:00 Constitutional: Yes: No Distress, Calm Gastrointestinal: Yes: Normal Bowel Sounds, Soft Musculoskeletal: Yes: WNL Extremities: Yes: WNL Neurological: Yes: Alert, Oriented Psychiatric: Yes: Alert, Oriented Labs: CBC, BMP 03/15/19 05:30 03/15/19 05:30 Assessment/Plan Problem List - Problems (1) Hyperlipidemia Code(s): E78.5 - HYPERLIPIDEMIA, UNSPECIFIED (2) Recurrent Clostridium difficile diarrhea Code(s): A04.71 - ENTEROCOLITIS DUE TO CLOSTRIDIUM DIFFICILE, RECURRENT plan continue current mgmt dirrhoea improved patient to take prolonged course of cdiff as advised rest as per the team
[2019-03-16 09:05] VITALS: BP 130/72; PULSE 76
[2019-03-16] MEDS: HEPARIN NA (PORCINE) 5,000 UNITS/ML 1ML VIAL SQ SCH (11:20)
--- NOTE | 2019-03-16 11:53 | DS ---
Physical Examination Vital Signs: Vital Signs Temperature 98.6 F 03/16/19 06:47 Pulse Rate 76 03/16/19 09:05 Respiratory Rate 18 03/16/19 09:05 Blood Pressure 130/72 03/16/19 09:05 O2 Sat by Pulse Oximetry (%) 97 03/15/19 21:00 Constitutional: Yes: No Distress, Calm Cardiovascular: Yes: Regular Rate and Rhythm Respiratory: Yes: CTA Bilaterally Gastrointestinal: Yes: Normal Bowel Sounds, Soft. No: Tenderness Edema: No Labs: CBC, BMP 03/15/19 05:30 03/15/19 05:30 Discharge Summary Reason For Visit: COLITIS DUE TO CLOSTRIDIUM DIFFICILE Current Active Problems C. difficile diarrhea (Acute) Hospital Course: Admitted for 2 recurrence for C diff colitis Seen by ID and GI Started on Vanco po Feeling better No diarrhea today stable for dc home on longer duration of Vanco solution Condition: Stable - Instructions Diet, Activity, Other Instructions: vanco 125syp --taper-- po q6h x 2weeks q8h x 2 weeks q12h 2 weeks q daily - 1month q every other day x 1 month twice week x 1month q once weekly x 1 month and stop Disposition: HOME - Home Medications Comprehensive Discharge Medication List: Ambulatory Orders Atorvastatin Ca [Lipitor] 10 mg PO HS 07/01/18 Albuterol Sulfate Inhaler - [Ventolin HFA Inhaler -] 1 - 2 inh PO QID 12/11/18 Zolpidem Tartrate [Ambien] 10 mg PO HS 12/16/18 Baclofen 50 mg PO ASDIR 03/12/19
== END 2019-03-16 14:34 | disposition home or self-care (01) | DRG 372 ==
LOC: JER 08:42 → JERBED 12:38 → J8W 20:41 → OBSVTOIN 21:18
PROVIDERS: ADMIT Internal Medicine; ATTEND Internal Medicine
DX: A04.71 Enterocolitis due to Clostridium difficile, recurrent (principal); N17.9 Acute kidney failure, unspecified; E78.5 Hyperlipidemia, unspecified; J45.909 Unspecified asthma, uncomplicated
CPT/HCPCS: 36415; 74019-TC-FY; 74176-TC; 80053; 83735; 85025; 87324; 87449; 99283-25; G0378; J1644; J7030

== ENCOUNTER 2019-07-23 11:14 | Emergency (ER) | payer OTHER, MEDICARE ==
--- NOTE | 2019-07-23 11:22 | PDOC ---
Rapid Medical Evaluation Medical Evaluation: Allergies Allergy/AdvReac Type Severity Reaction Status Date / Time Penicillins Allergy Verified 03/12/19 08:47 I have performed a brief in-person evaluation of this patient. The patient presents with a chief complaint of: hx of asthma, former smoker (40 years ago) c/o SOB, wheezing from last night; sxs feel like asthma; states he does not have meds for asthma Pertinent physical exam findings: In NAD, +wheezing I have ordered the following: Labs, EKG, cxr, duonebs, steroids The patient will proceed to the ED for further evaluation. 07/23/19 11:19
[2019-07-23 11:23] VITALS: BMI 27.0
[2019-07-23] MEDS ORDERED: methylPREDNISolone NA SUCC 125 MG/2 ML VIAL IVPB ONE (11:23)
[2019-07-23] MEDS ORDERED: ALBUTEROL SO4 2.5/IPRATROPIUM 0.5 INH SOL 3 ML VIAL.NEB. NEB ONE (11:48)
[2019-07-23] MEDS ORDERED: methylPREDNISolone NA SUCC 125 MG/2 ML VIAL ONE (11:49)
[2019-07-23] MEDS: ALBUTEROL SO4 2.5/IPRATROPIUM 0.5 INH SOL 3 ML VIAL.NEB. NEB SCH ×3 (11:50→12:15)
[2019-07-23 12:27] LABS: VENOUS PC02 48.9 mmHg (38-52); VENOUS PH 7.35 (7.31-7.41)
[2019-07-23 12:28] LABS: BASO % 0.6 % (0-2.0); EOS % 4.4 % (0-4.5); HEMATOCRIT 46.4 % (35.4-49); HEMOGLOBIN 15.9 GM/dL (11.7-16.9); LYMPH % 22.7 % (8-40); MCH 30.8 pg (25.7-33.7); MCHC 34.2 g/dl (32.0-35.9); MEAN CELL VOLUME 90.1 fl (80-96); MEAN PLT VOLUME 7.7 fl (7.5-11.1); MONO % 9.5 % (3.8-10.2); NEUT % 62.8 % (42.8-82.8); PLATELET COUNT 214 K/MM3 (134-434); RBC 5.15 M/mm3 (4.00-5.60); RDW 14.8 % (11.9-15.9); WHITE BLOOD COUNT 9.9 K/mm3 (4.0-10.0)
[2019-07-23 12:30] LABS: VENOUS PO2 < 49 mmHg (28-48)
--- NOTE | 2019-07-23 12:51 | PDOC ---
History of Present Illness - General Chief Complaint: Shortness of Breath Stated Complaint: ASTHMA Time Seen by Provider: 07/23/19 11:18 - History of Present Illness Initial Comments: 07/23/19 12:43 HPI: 69 y/o M with hx of asthma, HLD, recurrent Cdif presenting with asthma exacerbation that started last night. He states he has been having URI symptoms for the past 2-3 days with symptoms of sore throat, sneezing, and dry cough however last night it worsened to SOB and wheezing. This morning his SOB and wheezing worsened. Its present at rest and on ambulation. He has not taken any home treatments because his asthma has been under control for a couple years and he does not have any meds at home. He has never been intubated for asthma or required an admission. Patient denies fever, chills, PULIDO, chest pain, palpitations, leg swelling, abdominal pain, nausea, vomiting, diarrhea, constipation, dysuria, hematuria, BPR, lightheadedness, weakness, sensory changes. PMHx: as noted above ROS: as noted SHx: 20 pack year smoking history from the age for [age]; occasional alcohol use ; no rec drugs Allergies: NKDA ROS: GENERAL/CONSTITUTIONAL: No fever or chills. No weakness. HEAD, EYES, EARS, NOSE AND THROAT: No change in vision. No ear pain or discharge. +sore throat. CARDIOVASCULAR: No chest pain; +shortness of breath RESPIRATORY: +cough, wheezing. GASTROINTESTINAL: No nausea, vomiting, diarrhea or constipation. GENITOURINARY: No dysuria, frequency, or change in urination. MUSCULOSKELETAL: No joint or muscle swelling or pain. No neck or back pain. SKIN: No rash NEUROLOGIC: No headache, vertigo, loss of consciousness, or change in strength/ sensation. ENDOCRINE: No increased thirst. No abnormal weight change HEMATOLOGIC/LYMPHATIC: No anemia, easy bleeding, or history of blood clots. ALLERGIC/IMMUNOLOGIC: No hives or skin allergy. PE: GENERAL: Awake, alert, and fully oriented, no acute distress HEAD: No signs of trauma, normocephalic, atraumatic EYES: EOMI, sclera anicteric, conjunctiva clear ENT: Auricles normal inspection, hearing grossly normal, nares patent, oropharynx clear without exudates. Moist mucosa NECK: Normal ROM, no lymphadenopathy LUNGS: With duonebs treatment currently running; No increased work of breathing , symmetrical chest rise, clear to auscultation bilaterally, no wheezes, crackles or rhonchi HEART: Regular rate and rhythm, normal S1 and S2, no murmurs, peripheral pulses 2+ and equal bilaterally. ABDOMEN: Soft, nondistended, nontender, normoactive bowel sounds. No guarding, no rebound. No masses EXTREMITIES: Normal inspection, Normal range of motion, no edema. No clubbing or cyanosis. NEUROLOGICAL: Cranial nerves II through XII grossly intact. Normal speech, normal gait, no focal sensorimotor deficits SKIN: Warm, Dry, normal turgor, no rashes or lesions noted Past History - Past Medical History Allergies/Adverse Reactions: Allergies Allergy/AdvReac Type Severity Reaction Status Date / Time Penicillins Allergy Verified 07/23/19 11:19 Home Medications: Ambulatory Orders Atorvastatin Ca [Lipitor] 10 mg PO HS 07/01/18 Albuterol Sulfate Inhaler - [Ventolin HFA Inhaler -] 1 - 2 inh PO QID 12/11/18 Zolpidem Tartrate [Ambien] 10 mg PO HS 12/16/18 Baclofen 50 mg PO ASDIR 03/12/19 Vancomycin Oral Solution 125 mg PO Q6HPO #100 ml 03/16/19 Albuterol Sulfate Inhaler - [Ventolin HFA Inhaler -] 2 inh PO Q6H PRN #1 inh predniSONE [Deltasone -] 60 mg PO DAILY #4 tablet 07/23/19 Asthma: Yes COPD: No GI Disorders: Yes (c diff 2019) Hypercholesterolemia: Yes - Immunization History Immunization Up to Date: Yes - Suicide/Smoking/Psychosocial Hx Smoking History: Never smoked Have you smoked in the past 12 months: No If you are a former smoker, when did you quit?: 40 years ago Information on smoking cessation initiated: No Hx Alcohol Use: No Drug/Substance Use Hx: No Substance Use Type: None *Physical Exam - Vital Signs Last Vital Signs Temp Pulse Resp BP Pulse Ox 97.7 F 79 16 175/97 H 94 L 07/23/19 11:20 07/23/19 11:20 07/23/19 11:20 07/23/19 11:20 07/23/19 11:20 ED Treatment Course - LABORATORY CBC & Chemistry Diagram: 07/23/19 12:10 07/23/19 12:10 - ADDITIONAL ORDERS Additional order review: Laboratory Results 07/23/19 07/23/19 12:10 12:10 WBC 9.9 RBC 5.15 Hgb 15.9 Hct 46.4 MCV 90.1 MCH 30.8 MCHC 34.2 RDW 14.8 Plt Count 214 MPV 7.7 Absolute Neuts (auto) 6.2 Neutrophils % 62.8 Lymphocytes % 22.7 Monocytes % 9.5 Eosinophils % 4.4 Basophils % 0.6 Nucleated RBC % 0 VBG pH 7.35 POC VBG pCO2 48.9 POC VBG pO2 < 49 H VBG HCO3 26.5 VBG O2 Sat (Andrews) 63.8 L VBG Base Excess 0.6 07/23/19 12:10 RBC 5.15 MCV 90.1 MCHC 34.2 RDW 14.8 MPV 7.7 Neutrophils % 62.8 Lymphocytes % 22.7 Monocytes % 9.5 Eosinophils % 4.4 Basophils % 0.6 - Medications Given in the ED: ED Medications Discontinued Medications Generic Name Dose Route Start Last Admin Trade Name Freq PRN Reason Stop Dose Admin Albuterol/Ipratropium 1 amp 07/23/19 11:30 07/23/19 12:15 Duoneb - NEB 07/23/19 12:01 1 amp Q15M VIOLA Administration Methylprednisolone Sodium Succinate 125 mg 07/23/19 11:23 07/23/19 11:50 Solu-Medrol - IVPB 07/23/19 11:24 125 mg ONCE ONE Administration Medical Decision Making - Medical Decision Making 07/23/19 12:51 69 y/o M with hx of asthma, HLD, recurrent Cdif presenting with 2-3 days of URI symptoms now presenting with asthma exacerbation. Vitals notable for initial sats 94% BP 175/97, AF. PE with no crackles, rhonchi or wheezing or posterior oropharynx erythema. Patient symptoms significantly improved on duonebs and sats improved to 98% -cbc, cmp, trop, bnp -ekg, cxr -salumedrol 07/23/19 14:36 patient resp status improved after nebs and salumedrol sats 96% after ambulation Discussed with patient lab and imaging results and return pcxns. He understands and is comfortbale with DC home with followup with PCP *DC/Admit/Observation/Transfer Diagnosis at time of Disposition: Asthma exacerbation Qualifiers: Asthma severity: moderate Asthma persistence: unspecified Qualified Code(s): J45.901 - Unspecified asthma with (acute) exacerbation - Discharge Dispostion Disposition: HOME Condition at time of disposition: Improved Decision to Admit order: No - Prescriptions Prescriptions: Albuterol Sulfate Inhaler - [Ventolin HFA Inhaler -] 2 inh PO Q6H PRN #1 inh PRN Reason: Short Of Breath/Wheezing predniSONE [Deltasone -] 60 mg PO DAILY #4 tablet - Referrals Referrals: Gagan Mckeon MD [Staff Physician] - Ismael Ward MD [Staff Physician] - - Patient Instructions Printed Discharge Instructions: DI for Asthma -- Adult Additional Instructions: Additional Instructions: Please return to the emergency department with any new or worsening symptoms or concerns including worsening shortness of breath, chest pain, fever. Please follow up with your primary care physician within 72 hours for further outpatient asthma management Please see the attached pulmonary referrals and call office to schedule and establish care Please take prednisone 60mg for 4 days starting tomorrow and use your albuterol as needed for difficulty breathing of wheezing - Post Discharge Activity
[2019-07-23 13:41] LABS: ALBUMIN 4.4 g/dl (3.4-5.0); BILIRUBIN,TOTAL 0.8 mg/dL (0.2-1); BLOOD UREA NITROGEN 17.7 mg/dL (7-18); CALCIUM 9.6 mg/dL (8.5-10.1); CREATININE 1.3 mg/dL (0.55-1.3); POTASSIUM 4.9 mmol/L (3.5-5.1); TOT PROT 8.2 g/dl (6.4-8.2)
--- NOTE | 2019-07-23 14:15 | EKG ---
Test Reason : Blood Pressure : / mmHG Vent. Rate : 068 BPM Atrial Rate : 068 BPM P-R Int : 172 ms QRS Dur : 090 ms QT Int : 362 ms P-R-T Axes : 040 024 070 degrees QTc Int : 384 ms NORMAL SINUS RHYTHM POSSIBLE LEFT ATRIAL ENLARGEMENT NONSPECIFIC T WAVE ABNORMALITY ABNORMAL ECG WHEN COMPARED WITH ECG OF 12-FEB-2019 15:38, NONSPECIFIC T WAVE ABNORMALITY NOW EVIDENT IN INFERIOR LEADS Confirmed by SOPHIE SIGALA MD ([id number]) on 07/23/2019 2:15:08 PM Referred By: Confirmed By:SOPHIE SIGALA MD
--- NOTE | 2019-07-23 14:32 | PDOC ---
Attending Attestation - Resident Resident Name: Elmer Gonzalez - ED Attending Attestation I have performed the following: I have examined & evaluated the patient, The case was reviewed & discussed with the resident, I agree w/resident's findings & plan, Exceptions are as noted - HPI HPI: 07/23/19 14:30 69 M with h/o asthma/COPD, HTN presenting to ED with wheezing since last night. Pt states that he had an upper respiratory infection a few days ago. Last night , he began to feel himself wheeze. He denies CP. Denies F/C. States that his asthma meds were all , so he did not use anything. In ED, pt received solumedrol and 3 duonebs, and now reports complete resolution of his symptoms. - Physicial Exam PE: 07/23/19 14:32 "GENERAL: Awake, alert, and fully oriented, in no acute distress. HEAD: No signs of trauma EYES: PERRLA, EOMI, sclera anicteric, conjunctiva clear ENT: Auricles normal inspection, hearing grossly normal, nares patent, oropharynx clear without exudates. Moist mucosa NECK: Nontender, no stepoffs, Normal ROM, supple, no lymphadenopathy, JVD, or masses LUNGS: + expiratory wheezing HEART: Regular rate and rhythm, normal S1 and S2, no murmurs, rubs or gallops ABDOMEN: Soft, nontender, normoactive bowel sounds. No guarding, no rebound. No masses EXTREMITIES: Normal range of motion, no edema. No clubbing or cyanosis. No cords, erythema, or tenderness NEUROLOGICAL: Cranial nerves II through XII intact. 5/5 strength and sensation in all extremities, Normal speech, normal gait, normal cerebellar function SKIN: Warm, Dry, normal turgor, no rashes or lesions noted. - Medical Decision Making 07/23/19 14:32 69 M with asthma/COPD presenting with wheezing. Now resolved with nebs and steroids. - Labs unremarkable - CXR clear Pt ambulated in ED with stable O2 sat. Pt is well appearing, with normal vitals. Clinically stable for DC at this time. I discussed the physical exam findings, ancillary test results and final diagnoses with the patient. I answered all of the patient's questions. The patient was satisfied with the care received and felt comfortable with the discharge plan and treatment plan. The patient agrees to follow up with the primary care physician within 24-72 hours.
[2019-07-23 14:53] VITALS: BP 143/72; PULSE 82; TEMP 97.8
== END 2019-07-23 14:58 | disposition home or self-care (01) ==
LOC: JER 11:14
PROC: 3E0F7GC Introduction of Other Therapeutic Substance into Respiratory Tract, Via Natural or Artificial Opening (ICD-10-PCS; principal; 2019-07-23)
PROC: 3E0333Z Introduction of Anti-inflammatory into Peripheral Vein, Percutaneous Approach (ICD-10-PCS; 2019-07-23)
DX: J45.901 Unspecified asthma with (acute) exacerbation (principal); E78.00 Pure hypercholesterolemia, unspecified; Z86.19 Personal history of other infectious and parasitic diseases; Z87.891 Personal history of nicotine dependence
CPT/HCPCS: 36415; 71046-TC-FY; 80053; 82803; 84484; 85025; 93005; 93010; 99284-25

== ENCOUNTER 2019-08-14 04:42 | Emergency (ER) | payer OTHER, MEDICARE ==
[2019-08-14] MEDS ORDERED: ALBUTEROL SO4 2.5/IPRATROPIUM 0.5 INH SOL 3 ML VIAL.NEB. NEB ONE ×3 (04:47→06:54)
[2019-08-14 04:56] VITALS: BMI 34.2
--- NOTE | 2019-08-14 05:28 | PDOC ---
History of Present Illness - General Chief Complaint: Shortness of Breath Stated Complaint: DIFFICULTY BREATHING Time Seen by Provider: 08/14/19 05:27 - History of Present Illness Initial Comments: 69 year old with PMH with history of asthma, HLD, recurrent C-dif presenting with cough and difficulty breathing that stated yesterday evening. He has had a cough for the past two days but the shortness of breath has occurred since yesterday evening. States that he took his inhaler a few times with minor relief and does not have a nebulizer at home. He describe shis cugh as dry and denies fevers, chills, nausea, vomiting, diarrhea, chest pain, myalgias, or other symptoms. He has never been intubated for asthma or required an admission. Past History - Past Medical History Allergies/Adverse Reactions: Allergies Allergy/AdvReac Type Severity Reaction Status Date / Time Penicillins Allergy Verified 08/14/19 04:58 Home Medications: Ambulatory Orders Atorvastatin Ca [Lipitor] 10 mg PO HS 07/01/18 Albuterol Sulfate Inhaler - [Ventolin HFA Inhaler -] 1 - 2 inh PO QID 12/11/18 Zolpidem Tartrate [Ambien] 10 mg PO HS 12/16/18 Baclofen 50 mg PO ASDIR 03/12/19 Vancomycin Oral Solution 125 mg PO Q6HPO #100 ml 03/16/19 Albuterol Sulfate Inhaler - [Ventolin HFA Inhaler -] 2 inh PO Q6H PRN #1 inh predniSONE [Deltasone -] 60 mg PO DAILY #4 tablet 07/23/19 predniSONE [Deltasone -] 20 mg PO BID #11 tablet 07/25/19 Azithromycin [Zithromax 250mg Tablets -] 250 mg PO UTDICT #6 tab 08/14/19 Nebulizer and Compressor [Innospire Deluxe Cherry Neb] 1 each MC PRN #1 each Prednisone [Prednisone 50 MG TABLETS] 50 mg PO DAILY 4 Days #4 tablet 08/14/19 Asthma: Yes COPD: No GI Disorders: Yes (c diff 2019) Hypercholesterolemia: Yes - Immunization History Immunization Up to Date: Yes - Psycho Social/Smoking Cessation Hx Smoking History: Never smoked Have you smoked in the past 12 months: No If you are a former smoker, when did you quit?: 40 years ago Information on smoking cessation initiated: No Hx Alcohol Use: No Drug/Substance Use Hx: No Substance Use Type: None Review of Systems - Review of Systems Constitutional: No: Chills, Diaphoresis, Fever, Loss of Appetite HEENTM: No: Eye Pain, Blurred Vision, Tearing Respiratory: Yes: Cough, Shortness of Breath, SOB with Exertion, SOB at Rest, Wheezing. No: Productive cough, Hemoptysis Cardiac (ROS): No: Chest Pain, Edema, Irregular Heart Rate, Chest Tightness ABD/GI: No: Diarrhea, Nausea, Vomiting : No: Burning, Dysuria, Discharge Musculoskeletal: No: Back Pain, Joint Pain Integumentary: No: Bruising, Lesions, Lumps Neurological: No: Headache, Numbness, Paresthesia Psychiatric: No: Anxiety, Depression Hematologic/Lymphatic: No: Anemia, Blood Clots, Easy Bleeding *Physical Exam - Vital Signs Last Vital Signs Temp Pulse Resp BP Pulse Ox 97.7 F 79 20 168/79 93 L 08/14/19 04:54 08/14/19 04:54 08/14/19 04:54 08/14/19 04:54 08/14/19 04:54 - Physical Exam General Appearance: Yes: Nourished, Appropriately Dressed. No: Apparent Distress HEENT: positive: EOMI, NURY, Normal ENT Inspection, Normal Voice Neck: positive: Trachea midline, Normal Thyroid, Supple. negative: Tender, Rigid Respiratory/Chest: positive: Respiratory Distress, Accessory Muscle Use, Labored Respiration, Rapid RR, Wheezing. negative: Chest Tender, Lungs Clear ( bilateral mid and lower lung field wheezes with coarse airway transmission while on nebulizer), Normal Breath Sounds, Decreased Breath Sounds Cardiovascular: positive: Regular Rhythm, Regular Rate Gastrointestinal/Abdominal: positive: Normal Bowel Sounds, Flat, Soft. negative : Tender Lymphatic: negative: Adenopathy, Tenderness Musculoskeletal: positive: Normal Inspection. negative: CVA Tenderness, Decreased Range of Motion Extremity: positive: Normal Capillary Refill, Normal Inspection, Normal Range of Motion. negative: Tender Integumentary: positive: Normal Color, Dry, Warm Neurologic: positive: Fully Oriented, Alert, Normal Mood/Affect, Normal Response , Motor Strength 5/5 ED Treatment Course - LABORATORY CBC & Chemistry Diagram: 08/14/19 06:32 08/14/19 06:14 Medical Decision Making - Medical Decision Making 69 year old male with history of asthma presenting with shortness of breath and cough. Current concern is for asthma exacerbation. Administered duoneb x 2 and methylpred 125. Will get CXR and DC with 5 days 50 prednisone and azithromycin if he improves. Signed out to Dr. Krueger in stable condition pending reevaluation. 08/14/19 05:57 Discharge - Discharge Information Problems reviewed: Yes Clinical Impression/Diagnosis: Asthma exacerbation Qualifiers: Asthma severity: moderate Asthma persistence: unspecified Qualified Code(s): J45.901 - Unspecified asthma with (acute) exacerbation Condition: Stable Disposition: HOME - Admission No - Additional Discharge Information Prescriptions: Azithromycin [Zithromax 250mg Tablets -] 250 mg PO UTDICT #6 tab Nebulizer and Compressor [Innospire Deluxe Cherry Neb] 1 each MC PRN #1 each Prednisone [Prednisone 50 MG TABLETS] 50 mg PO DAILY 4 Days #4 tablet - Follow up/Referral Referrals: Stella Metz MD [Primary Care Provider] - - Patient Discharge Instructions Patient Printed Discharge Instructions: DI for Asthma -- Adult Additional Instructions: Please take your antibiotics and steroids as prescribed. Please follow up with your primary care doctor at your next appointment. Please return to the ED if you have new or worsening symptoms. - Post Discharge Activity
[2019-08-14] MEDS ORDERED: methylPREDNISolone NA SUCC 125 MG/2 ML VIAL IVPUSH ONE (05:41)
[2019-08-14] MEDS ORDERED: methylPREDNISolone NA SUCC 125 MG/2 ML VIAL ONE (06:15)
[2019-08-14 06:32] VITALS: PULSE 95; TEMP 98
--- NOTE | 2019-08-14 06:39 | PDOC ---
Attending Attestation - Resident Resident Name: WilliamArvinchichokari - ED Attending Attestation I have performed the following: I have examined & evaluated the patient, The case was reviewed & discussed with the resident, I agree w/resident's findings & plan, Exceptions are as noted - HPI HPI: 08/14/19 06:22 Mr. Pires is a 69 yo M who presents to the ER with shortness of breath and cough Pt has a h/o asthma, HLD, recurrent C-diff. He has noted cough and difficulty breathing that stated yesterday evening. He used his inhaler at home but this only minimally improved his symptoms Cough non productive Pt denies fevers, chills No myalgias or arthralgias - Physicial Exam PE: 08/14/19 06:39 GENERAL: The patient is in no acute distress. ENT: Ears normal, nares patent, oropharynx clear without exudates. Moist mucous membranes. LUNGS: Bilateral insp and expiratory wheezing, rhonchi through out HEART:Regular rate and rhythm, normal S1 and S2 without murmur, rub or gallop. ABDOMEN: Soft, nontender, normoactive bowel sounds. EXTREMITIES: Normal range of motion, no edema. NEUROLOGICAL: Cranial nerves II through XII grossly intact. Normal speech. No focal neurological deficits. SKIN: Warm, Dry, normal turgor, no rashes or lesions noted. - Medical Decision Making 08/14/19 06:40 69 yo M presenting with a complaint of wheezing No fevers or chills 08/14/19 06:42 Labs Nebs Solumedrol D/C home Signed out to Dr. Salazar
[2019-08-14 06:45] LABS: BASO % 0.5 % (0-2.0); EOS % 6.1 % (0-4.5); HEMATOCRIT 42.4 % (35.4-49); HEMOGLOBIN 14.7 GM/dL (11.7-16.9); LYMPH % 28.5 % (8-40); MCH 31.4 pg (25.7-33.7); MCHC 34.6 g/dl (32.0-35.9); MEAN CELL VOLUME 90.7 fl (80-96); MEAN PLT VOLUME 7.4 fl (7.5-11.1); MONO % 6.7 % (3.8-10.2); NEUT % 58.2 % (42.8-82.8); PLATELET COUNT 227 K/MM3 (134-434); RBC 4.67 M/mm3 (4.00-5.60); RDW 14.6 % (11.9-15.9); WHITE BLOOD COUNT 8.3 K/mm3 (4.0-10.0)
[2019-08-14 07:07] LABS: ALBUMIN 4.1 g/dl (3.4-5.0); BILIRUBIN,TOTAL 0.5 mg/dL (0.2-1); BLOOD UREA NITROGEN 24.1 mg/dL (7-18); CALCIUM 9.3 mg/dL (8.5-10.1); CREATININE 1.2 mg/dL (0.55-1.3); POTASSIUM 3.9 mmol/L (3.5-5.1); TOT PROT 7.6 g/dl (6.4-8.2)
--- NOTE | 2019-08-14 07:15 | PDOC ---
*Physical Exam - Vital Signs Last Vital Signs Temp Pulse Resp BP Pulse Ox 98.0 F 95 H 18 143/61 98 08/14/19 06:32 08/14/19 06:32 08/14/19 06:32 08/14/19 06:32 08/14/19 06:32 ED Treatment Course - LABORATORY CBC & Chemistry Diagram: 08/14/19 06:32 08/14/19 06:14 - ADDITIONAL ORDERS Additional order review: Laboratory Results 08/14/19 08/14/19 06:14 06:14 Sodium 139 Potassium 3.9 Chloride 106 Carbon Dioxide 24 Anion Gap 9 BUN 24.1 H Creatinine 1.2 Est GFR (CKD-EPI)AfAm 70.58 Est GFR (CKD-EPI)NonAf 60.90 Random Glucose 122 H Calcium 9.3 Magnesium 1.9 Total Bilirubin 0.5 AST 35 ALT 56 Alkaline Phosphatase 68 Total Protein 7.6 Albumin 4.1 08/14/19 06:32 RBC 4.67 MCV 90.7 MCHC 34.6 RDW 14.6 MPV 7.4 L Neutrophils % 58.2 Lymphocytes % 28.5 D Monocytes % 6.7 Eosinophils % 6.1 H Basophils % 0.5 - Medications Given in the ED: ED Medications Discontinued Medications Generic Name Dose Route Start Last Admin Trade Name Freq PRN Reason Stop Dose Admin Albuterol/Ipratropium 1 amp 08/14/19 06:41 08/14/19 06:58 Duoneb - NEB 08/14/19 06:42 1 amp ONCE ONE Administration Methylprednisolone Sodium Succinate 125 mg 08/14/19 05:41 08/14/19 06:34 Solu-Medrol - IVPUSH 08/14/19 05:42 125 mg ONCE ONE Administration Medical Decision Making - Medical Decision Making 08/14/19 07:14 Mr. Pires is a 69 yo male w/ pmh of asthma, HLD, and recurrent C-diff infection who presents for evaluation of asthma exacerbation. Patient is s/p 2 breathing treatments and steroids. Patient currently pending CXR and repeat evaluation for potential discharge. 08/14/19 07:36 CXR concerning for possible L sided infiltrate and prominent mediastinum. Chest CT ordered for further evaluation. 08/14/19 09:[address] significant for nonspecific 1.5x1.3cm subpleural opacity representing small infiltrate vs pulmonary nodule. No other concerning findings. Patient well appearing upon repeat evaluation w/ improved O2 saturation to 97% and reportedly feeling "much better." Patient able to ambulate without difficulty and wishes to be discharged. Patient given copy of CT results and instructed to follow-up with PCP for further evaluation of pulmonary nodule. No concern for acute process at this time. Discharging to home with ABX, steroids, and breathing treatments. Discharge - Discharge Information Problems reviewed: Yes Clinical Impression/Diagnosis: Asthma exacerbation Qualifiers: Asthma severity: moderate Asthma persistence: unspecified Qualified Code(s): J45.901 - Unspecified asthma with (acute) exacerbation Condition: Stable Disposition: HOME - Additional Discharge Information Prescriptions: Azithromycin [Zithromax 250mg Tablets -] 250 mg PO UTDICT #6 tab Nebulizer and Compressor [Innospire Deluxe Cherry Neb] 1 each MC PRN #1 each Prednisone [Prednisone 50 MG TABLETS] 50 mg PO DAILY 4 Days #4 tablet - Follow up/Referral Referrals: Stella Metz MD [Primary Care Provider] - - Patient Discharge Instructions Patient Printed Discharge Instructions: DI for Asthma -- Adult Additional Instructions: You were evaluated today in the ER for your breathing symptoms. We performed labs, chest Xray, and CT scan and found a small pulmonary nodule that you should follow-up with your primary care provider for further evaluation. We also sent proscriptions to your pharmacy. Take all antibiotics and steroids as prescribed. Return to the ED if you have return of difficulty breathing, fever, chills, or other concerning symptoms. - Post Discharge Activity
[2019-08-14 08:38] VITALS: BP 154/77
--- NOTE | 2019-08-14 09:16 | PDOC ---
*Physical Exam - Vital Signs Last Vital Signs Temp Pulse Resp BP Pulse Ox 98.0 F 95 H 18 154/77 95 08/14/19 06:32 08/14/19 08:36 08/14/19 08:36 08/14/19 08:36 08/14/19 08:36 - Physical Exam General Appearance: Yes: Nourished HEENT: positive: NURY Neck: positive: Trachea midline Respiratory/Chest: positive: Wheezing (faint expiratory wheezing left side, ) Cardiovascular: positive: Regular Rhythm, Regular Rate, S1, S2 Integumentary: positive: Normal Color, Dry, Warm Neurologic: positive: Fully Oriented, Alert, Normal Mood/Affect ED Treatment Course - LABORATORY CBC & Chemistry Diagram: 08/14/19 06:32 08/14/19 06:14 - ADDITIONAL ORDERS Additional order review: Laboratory Results 08/14/19 08/14/19 06:14 06:14 Sodium 139 Potassium 3.9 Chloride 106 Carbon Dioxide 24 Anion Gap 9 BUN 24.1 H Creatinine 1.2 Est GFR (CKD-EPI)AfAm 70.58 Est GFR (CKD-EPI)NonAf 60.90 Random Glucose 122 H Calcium 9.3 Magnesium 1.9 Total Bilirubin 0.5 AST 35 ALT 56 Alkaline Phosphatase 68 Total Protein 7.6 Albumin 4.1 08/14/19 06:32 RBC 4.67 MCV 90.7 MCHC 34.6 RDW 14.6 MPV 7.4 L Neutrophils % 58.2 Lymphocytes % 28.5 D Monocytes % 6.7 Eosinophils % 6.1 H Basophils % 0.5 - Medications Given in the ED: ED Medications Discontinued Medications Generic Name Dose Route Start Last Admin Trade Name Elza PRN Reason Stop Dose Admin Albuterol/Ipratropium 1 amp 08/14/19 06:41 08/14/19 06:58 Duoneb - NEB 08/14/19 06:42 1 amp ONCE ONE Administration Methylprednisolone Sodium Succinate 125 mg 08/14/19 05:41 08/14/19 06:34 Solu-Medrol - IVPUSH 08/14/19 05:42 125 mg ONCE ONE Administration Medical Decision Making - Medical Decision Making 08/14/19 09:11 69-year-old male history of asthma hyperlipidemia prior smoking history quit over 20 years ago here today complaining of cough congestion shortness of breath and wheezing. Patient states he uses inhaler at home with no relief I assumed care of the patient at 7 AM signed out to me by Dr. Hansen in the previous . Patient had been given several nebs and steroids at this time he states he is feeling much better denies any fevers chills no chest pain no leg swelling no other complaints. He sees Dr. Rousseau pulmonology and Dr. griselda Metz would like to go home On my exam the patient is awake alert still has mild wheezing expiratory early on the left side only otherwise is comfortable his work of breathing is normal pulse ox last recorded was 93%. Plan we will observe him following his last neb for 1 to 2 hours likely discharge home. Chest x-ray was reviewed there was concern about a nodular irregularity in the right upper lung versus bone. CT chest was ordered pending read 08/14/19 09:16 Discharge - Discharge Information Problems reviewed: Yes Clinical Impression/Diagnosis: Asthma exacerbation Qualifiers: Asthma severity: moderate Asthma persistence: unspecified Qualified Code(s): J45.901 - Unspecified asthma with (acute) exacerbation Condition: Stable Disposition: HOME - Additional Discharge Information Prescriptions: Albuterol 0.083% Nebulizer Marlin [Ventolin 0.083% Nebulizer Soln -] 1 neb NEB Q6H PRN #1 box PRN Reason: Wheezing Azithromycin [Zithromax 250mg Tablets -] 250 mg PO UTDICT #6 tab Nebulizer and Compressor [Innospire Deluxe Cherry Neb] 1 each MC PRN #1 each Prednisone [Prednisone 50 MG TABLETS] 50 mg PO DAILY 4 Days #4 tablet - Follow up/Referral Referrals: Griselda Metz MD [Primary Care Provider] - - Patient Discharge Instructions Patient Printed Discharge Instructions: DI for Asthma -- Adult Additional Instructions: You were evaluated today in the ER for your breathing symptoms. We performed labs, chest Xray, and CT scan and found a small pulmonary nodule that you should follow-up with your primary care provider for further evaluation. We also sent proscriptions to your pharmacy. Take all antibiotics and steroids as prescribed. Return to the ED if you have return of difficulty breathing, fever, chills, or other concerning symptoms. - Post Discharge Activity
== END 2019-08-14 10:05 | disposition home or self-care (01) ==
LOC: JER 04:42
PROC: 3E0F7GC Introduction of Other Therapeutic Substance into Respiratory Tract, Via Natural or Artificial Opening (ICD-10-PCS; principal; 2019-08-14)
PROC: 3E0333Z Introduction of Anti-inflammatory into Peripheral Vein, Percutaneous Approach (ICD-10-PCS; 2019-08-14)
DX: J45.901 Unspecified asthma with (acute) exacerbation (principal); E78.5 Hyperlipidemia, unspecified; Z86.19 Personal history of other infectious and parasitic diseases; Z88.0 Allergy status to penicillin
CPT/HCPCS: 36415; 71045-TC-FY; 71250-TC; 80053; 83735; 85025; 94640; 96374; 99282-25

== ENCOUNTER 2019-08-21 12:56 | Inpatient (IN) | payer OTHER, MEDICARE ==
--- NOTE | 2019-08-21 13:22 | PDOC ---
History of Present Illness - General Chief Complaint: Asthma Stated Complaint: ASTHMA - History of Present Illness Initial Comments: The pt is a 69M w/ a history of asthma, HLD who presents for evaluation of an asthma exacerbation. The pt was recently seen in the ED for similar symptoms on 08/14/19, was treated with duo-nebs, steroids, and D/C'ed with prednisone that was completed Friday and Azithromycin. The pt reports his symptoms improved until Friday/ then his symptoms began to worsen again. He endorses wheezing and cough despite inhaler use. He denies fevers, chest pain, PULIDO, vision changes, N/V, abdominal pain, dysuria, hematuria, or changes in sensation 08/21/19 13:23 Past History - Past Medical History Allergies/Adverse Reactions: Allergies Allergy/AdvReac Type Severity Reaction Status Date / Time Penicillins Allergy Verified 08/21/19 14:45 Home Medications: Ambulatory Orders Atorvastatin Ca [Lipitor] 10 mg PO HS 07/01/18 Albuterol Sulfate Inhaler - [Ventolin HFA Inhaler -] 1 - 2 inh PO QID 12/11/18 Zolpidem Tartrate [Ambien] 10 mg PO HS 12/16/18 Albuterol Sulfate Inhaler - [Ventolin HFA Inhaler -] 2 inh PO Q6H PRN #1 inh Albuterol 0.083% Nebulizer Marlin [Ventolin 0.083% Nebulizer Soln -] 1 neb NEB Q6H PRN #1 box 08/14/19 Nebulizer and Compressor [Innospire Deluxe Cherry Neb] 1 each PRN #1 each Asthma: Yes COPD: No GI Disorders: Yes (c diff 2019) Hypercholesterolemia: Yes - Immunization History Immunization Up to Date: Yes - Psycho Social/Smoking Cessation Hx Smoking History: Never smoked Have you smoked in the past 12 months: No If you are a former smoker, when did you quit?: 40 years ago Hx Alcohol Use: No Drug/Substance Use Hx: No Substance Use Type: None Review of Systems - Review of Systems Able to Perform ROS?: Yes Comments:: GENERAL/CONSTITUTIONAL: No fever or chills. No weakness HEAD, EYES, EARS, NOSE AND THROAT: No change in vision. No change in hearing. No sore throat CARDIOVASCULAR: +SOB RESPIRATORY: +cough/wheeze GASTROINTESTINAL: No nausea, vomiting, diarrhea or constipation GENITOURINARY: No dysuria, frequency, or change in urination MUSCULOSKELETAL: No joint or muscle swelling or pain. No neck or back pain SKIN: No rash NEUROLOGIC: No headache, vertigo, loss of consciousness, or change in strength/ sensation ENDOCRINE: No increased thirst. No abnormal weight change HEMATOLOGIC/LYMPHATIC: No anemia, easy bleeding, or history of blood clots ALLERGIC/IMMUNOLOGIC: No hives or skin allergy 08/21/19 13:22 Is the patient limited Andorran proficient: No *Physical Exam - Vital Signs Last Vital Signs Temp Pulse Resp BP Pulse Ox 97.8 F 82 20 146/77 94 L 08/21/19 13:11 08/21/19 13:11 08/21/19 13:11 08/21/19 13:11 08/21/19 13:11 - Physical Exam Comments: GENERAL: Awake, alert, and oriented to person/place/time, in no acute distress HEAD: No signs of trauma, normocephalic, atraumatic EYES: PERRLA, EOMI, sclera anicteric, conjunctiva clear ENT: Hearing grossly normal, nares patent, oropharynx clear without exudates. Moist mucosa LUNGS: moderate b/l diffuse wheezing, no distress HEART: Regular rate and rhythm, normal S1 and S2, no murmurs appreciated, peripheral pulses normal and equal bilaterally ABDOMEN: Soft, nontender, normoactive bowel sounds. No guarding, no rebound EXTREMITIES: Normal inspection, Normal range of motion, no edema. No clubbing or cyanosis NEUROLOGICAL: Cranial nerves II through XII grossly intact. Normal speech, no focal sensorimotor deficits SKIN: Warm, Dry 08/21/19 13:22 ED Treatment Course - LABORATORY CBC & Chemistry Diagram: 08/21/19 14:00 08/21/19 14:00 Medical Decision Making - Medical Decision Making The pt is a 69M w/ a history of asthma, HLD who presents for evaluation of an asthma exacerbation. ED Course CMP, CBC, Trop I CXR ECG Duo-neb x3 Solumedrol 125mg IV once Will reassess 08/21/19 13:54 ECG w/ NSR; HR 80; QTc 419; TWI in I, aVL, aVR, V1; TW flattening in V5-6 both seen on previous ECG; no JULIET 08/21/19 13:57 CXR w/o evidence of PNA Pt w/ persistent wheezing, will give Mg WBC 10.2 No anemia Lytes wnl No TASNEEM LFTs mildly elevated Trop I neg 08/21/19 15:50 Dr. Metz's service paged x2, awaiting call back Pt w/ persistent wheezing, additional duo-neb given Peak flow 420 Pt signed out to [facility] Admitting Pt now states he has DM and was recently started on Bydureon weekly 08/21/19 17:57 Discharge - Discharge Information Problems reviewed: Yes Clinical Impression/Diagnosis: Asthma exacerbation Qualifiers: Asthma severity: moderate Asthma persistence: persistent Qualified Code(s): J45.41 - Moderate persistent asthma with (acute) exacerbation Condition: Good - Admission Yes - Follow up/Referral Referrals: Stella Metz MD [Primary Care Provider] - - Patient Discharge Instructions - Post Discharge Activity
[2019-08-21] MEDS ORDERED: methylPREDNISolone NA SUCC 125 MG/2 ML VIAL IVPB ONE (13:34)
[2019-08-21] MEDS ORDERED: methylPREDNISolone NA SUCC 125 MG/2 ML VIAL ONE (13:46)
[2019-08-21] MEDS ORDERED: ALBUTEROL SO4 2.5/IPRATROPIUM 0.5 INH SOL 3 ML VIAL.NEB. NEB ONE ×2 (13:46→16:04)
[2019-08-21] MEDS: ALBUTEROL SO4 2.5/IPRATROPIUM 0.5 INH SOL 3 ML VIAL.NEB. NEB SCH ×3 (13:50→14:40)
[2019-08-21 14:19] LABS: BASO % 0.7 % (0-2.0); EOS % 8.5 % (0-4.5); HEMATOCRIT 45.5 % (35.4-49); HEMOGLOBIN 15.7 GM/dL (11.7-16.9); LYMPH % 21.6 % (8-40); MCH 31.2 pg (25.7-33.7); MCHC 34.4 g/dl (32.0-35.9); MEAN CELL VOLUME 90.5 fl (80-96); MEAN PLT VOLUME 7.4 fl (7.5-11.1); MONO % 8.7 % (3.8-10.2); NEUT % 60.5 % (42.8-82.8); PLATELET COUNT 291 K/MM3 (134-434); RBC 5.03 M/mm3 (4.00-5.60); RDW 14.4 % (11.9-15.9); WHITE BLOOD COUNT 10.2 K/mm3 (4.0-10.0)
[2019-08-21] MEDS ORDERED: MAGNESIUM SULF 50% (8.12 MEQ/2 ML-1 GM VIAL) IVPB ONE (14:32)
[2019-08-21] MEDS ORDERED: MAGNESIUM SULF 50% (8.12 MEQ/2 ML-1 GM VIAL) ONE (14:34)
--- NOTE | 2019-08-21 14:55 | PDOC ---
Documentation entered by Ariella Hope SCRIBE, acting as scribe for Lea Jerez MD. Lea Jerez MD: This documentation has been prepared by the bozenaibe, Ariella Hope SCRIBE, under my direction and personally reviewed by me in its entirety. I confirm that the documentation accurately reflects all work, treatment, procedures, and medical decision making performed by me. Attending Attestation - Resident Resident Name: Gus Razo - ED Attending Attestation I have performed the following: I have examined & evaluated the patient, The case was reviewed & discussed with the resident, I agree w/resident's findings & plan, Exceptions are as noted - HPI HPI: 08/21/19 14:45 The patient is a 69-year-old male with a past medical history significant for asthma and HLD who presents to the emergency department with shortness of breath. The patient reports he was seen in the ER on 08/14 for an asthma exacerbation, treated in the ER, and discharged home with Zithromax, Nebulizer, and Prednisone. The patient reports finishing the abx and prednisone this week, with an improvement of symptoms, however, Friday- the symptoms presented again, no relief with inhaler use. Denies fever, chills, or chest pain. Denies headache, dizziness, focal weakness or numbness, nausea, vomiting, diarrhea, constipation, lower extremity edema or calf pain. - Physicial Exam PE: 08/21/19 14:38 GENERAL: Awake, alert, and fully oriented, in no acute distress EYES: PERRLA, EOMI, sclera anicteric, conjunctiva clear ENT: Nares patent, oropharynx clear without exudates. Moist mucosa NECK: Normal ROM, supple, no lymphadenopathy, JVD, or masses LUNGS: +moderate diffuse bilateral wheezing, in no acute respiratory distress. No tachypnea. Moderate air movement bilaterally. no crackles HEART: Regular rate and rhythm, normal S1 and S2, no murmurs, rubs or gallops ABDOMEN: Soft, nontender, normoactive bowel sounds. No guarding, no rebound. No masses EXTREMITIES: Normal range of motion, no edema. No cords, erythema, or tenderness NEUROLOGICAL: Normal speech, cranial nerves intact, Equal strength and sensation bilaterally. SKIN: Warm, Dry, normal turgor, no rashes or lesions noted. - Medical Decision Making 08/21/19 14:53 6-year-old male with a history of asthma presents the emergency department with persistent symptoms despite outpatient course of prednisone and azithromycin. Oxygen saturation 94%. Diffuse wheezing on exam with moderate air movement. Patient feeling better with [id number] nebs, methylprednisone, however persistently wheezing. As such ordered mag 2 g. Anticipate admission given failed outpatient treatment, mild hypoxia, and persistent wheezing despite nebs and steroids. 08/21/19 17:[address] Metz for admission x2, no response Hospitalist paged for admission, awaiting call for sign out 08/21/19 18:00 Case signed out to hospitalist by Dr. Razo Case discussed in detail with admitting physician including history, physical exam and ancillary studies. Admitting physician has assumed care for the patient, will follow all pending diagnostics and will complete the evaluation and treatment. Heart Score/ECG Review #1 08/21/19 14:54 Twelve-lead EKG was performed and reviewed by me. Normal sinus rhythm, rate 80. Normal axis and intervals. No ST elevations. T wave inversions in 1, aVL , V5 and V6. When compared to previous EKG, no significant changes.
[2019-08-21 14:59] LABS: ALBUMIN 4.2 g/dl (3.4-5.0); ALK PHOS 69 U/L (45-117); ANION GAP 8 MMOL/L (8-16); BILIRUBIN,TOTAL 0.6 mg/dL (0.2-1); BLOOD UREA NITROGEN 20.5 mg/dL (7-18); CALCIUM 9.2 mg/dL (8.5-10.1); CHLORIDE 106 mmol/L (98-107); CO2 25 mmol/L (21-32); CREATININE 1.1 mg/dL (0.55-1.3); GLUCOSE,RANDOM 86 mg/dL (74-106); POTASSIUM 4.8 mmol/L (3.5-5.1); SGOT/AST 45 U/L (15-37); SGPT/ALT 79 U/L (13-61); SODIUM 139 mmol/L (136-145)
[2019-08-21] MEDS ORDERED: ALBUTEROL SO4 0.083% IH SOL 2.5 MG/3 ML VIAL.NEB. NEB ONE (16:07)
[2019-08-21] MEDS ORDERED: ALBUTEROL SO4 0.083% IH SOL 2.5 MG/3 ML VIAL.NEB. NEB PRN (17:50)
[2019-08-21] MEDS ORDERED: [UNRECOGNIZED DRUG - OTHER] MC SCH (18:00)
--- NOTE | 2019-08-21 18:02 | HP ---
Admitting History and Physical - Primary Care Physician PCP: Stella Metz - Admission Chief Complaint: SOB History of Present Illness: 69 yrs old man ex smoker , asthma diagnosed many yrs ago F/U with Dr Hodges, Dyslipedmia recently discharged from Ed on 08/14/2019 after treated for asthma exacerbation on PO prednisone that he completed 2 dayas ago next day developed gradually worsening SOB with chest tightness denies any URTI symptoms, a chest pain or palpitation no c/o edema or orthopnea in the Ed w/u shows normal TWBC , normal CXR patient remained symptomatic despite IV Mag Sulfate and Nebs treatment is being admitted for further evaluation and management. History Source: Patient - Past Medical History Cardiovascular: Yes: Hyperlipdemia Pulmonary: Yes: Asthma Infectious Disease: Yes: Other (c diff) - Smoking History Smoking history: Former smoker Have you smoked in the past 12 months: No If you are a former smoker, when did you quit?: 40 years ago - Alcohol/Substance Use Hx Alcohol Use: No - Social History History of Recent Travel: No Home Medications - Allergies Allergies/Adverse Reactions: Allergies Allergy/AdvReac Type Severity Reaction Status Date / Time Penicillins Allergy Verified 08/21/19 14:45 - Home Medications Home Medications: Ambulatory Orders Atorvastatin Ca [Lipitor] 10 mg PO HS 07/01/18 Albuterol Sulfate Inhaler - [Ventolin HFA Inhaler -] 1 - 2 inh PO QID 12/11/18 Zolpidem Tartrate [Ambien] 10 mg PO HS 12/16/18 Albuterol Sulfate Inhaler - [Ventolin HFA Inhaler -] 2 inh PO Q6H PRN #1 inh Albuterol 0.083% Nebulizer Marlin [Ventolin 0.083% Nebulizer Soln -] 1 neb NEB Q6H PRN #1 box 08/14/19 Nebulizer and Compressor [Innospire Deluxe Cherry Neb] 1 each PRN #1 each Family Medical History Family Hx Cancer: Mother (Lung), Brother (Lung) Other Family History: Father Pulmonary Fibrosis Review of Systems - Review of Systems Constitutional: denies: Chills, Diaphoresis, Fever, Lethargy Eyes: denies: Blind Spots, Blurred Vision HENT: denies: Difficult Swallowing, Ear Discharge Neck: denies: Decreased ROM, Lumps, Pain on Movement Cardiovascular: denies: Chest Pain, Edema, Palpitations Respiratory: reports: Cough, Exercise Intolerance, Wheezing. denies: Orthopnea Gastrointestinal: denies: Abdominal Pain, Bloating, Constipation, Diarrhea Genitourinary: denies: Burning, Discharge, Dysuria, Flank Pain Musculoskeletal: denies: Back Pain, Crepitus, Decreased ROM Integumentary: denies: Blister, Bruising Neurological: denies: Change in LOC, Change in Speech, Confusion Hematology/Lymphatic: denies: Easily Bruised, Excessive Bleeding Psychiatric: reports: Altered Sleep Pattern Physical Examination Vital Signs: Vital Signs Temperature 97.8 F 08/21/19 13:11 Pulse Rate 86 08/21/19 16:29 Respiratory Rate 18 08/21/19 16:29 Blood Pressure 152/71 08/21/19 16:29 O2 Sat by Pulse Oximetry (%) 95 08/21/19 16:29 Findings/Remarks: Elderly F not in distress c/o SOB HEENT: mm moist anemia, PERRLA EOMI NECK; No JVd No Bruit CHEST: B/L Diffuse Wheezes ABD: No distention, non tender Bs + EXT: No edema fee , no calf tenderness ENT SURGEON: AOX3 non focal Labs: WBC 10.2 K/mm3 (4.0-10.0) H 08/21/19 14:00 RBC 5.03 M/mm3 (4.00-5.60) 08/21/19 14:00 Hgb 15.7 GM/dL (11.7-16.9) 08/21/19 14:00 Hct 45.5 % (35.4-49) 08/21/19 14:00 MCV 90.5 fl (80-96) 08/21/19 14:00 MCH 31.2 pg (25.7-33.7) 08/21/19 14:00 MCHC 34.4 g/dl (32.0-35.9) 08/21/19 14:00 RDW 14.4 % (11.9-15.9) 08/21/19 14:00 Plt Count 291 K/MM3 (134-434) D 08/21/19 14:00 MPV 7.4 fl (7.5-11.1) L 08/21/19 14:00 Absolute Neuts (auto) 6.1 K/mm3 (1.5-8.0) 08/21/19 14:00 Neutrophils % 60.5 % (42.8-82.8) 08/21/19 14:00 Lymphocytes % 21.6 % (8-40) D 08/21/19 14:00 Monocytes % 8.7 % (3.8-10.2) 08/21/19 14:00 Eosinophils % 8.5 % (0-4.5) H 08/21/19 14:00 Basophils % 0.7 % (0-2.0) 08/21/19 14:00 Nucleated RBC % 0 % (0-0) 08/21/19 14:00 Sodium 139 mmol/L (136-145) 08/21/19 14:00 Potassium 4.8 mmol/L (3.5-5.1) 08/21/19 14:00 Chloride 106 mmol/L (98-107) 08/21/19 14:00 Carbon Dioxide 25 mmol/L (21-32) 08/21/19 14:00 Anion Gap 8 MMOL/L (8-16) 08/21/19 14:00 BUN 20.5 mg/dL (7-18) H 08/21/19 14:00 Creatinine 1.1 mg/dL (0.55-1.3) 08/21/19 14:00 Est GFR (CKD-EPI)AfAm 78.41 08/21/19 14:00 Est GFR (CKD-EPI)NonAf 67.66 08/21/19 14:00 Random Glucose 86 mg/dL (74-106) 08/21/19 14:00 Calcium 9.2 mg/dL (8.5-10.1) 08/21/19 14:00 Total Bilirubin 0.6 mg/dL (0.2-1) 08/21/19 14:00 AST 45 U/L (15-37) H 08/21/19 14:00 ALT 79 U/L (13-61) H 08/21/19 14:00 Alkaline Phosphatase 69 U/L (45-117) 08/21/19 14:00 Troponin I < 0.02 ng/ml (0.00-0.05) 08/21/19 14:00 Total Protein 8.0 g/dl (6.4-8.2) 08/21/19 14:00 Albumin 4.2 g/dl (3.4-5.0) 08/21/19 14:00 Imaging - Results Chest X-ray: Report Reviewed (No infiltrates) EKG: Report Reviewed ([address] T changes) Problem List - Problems (1) Asthma exacerbation Assessment/Plan: Recurrent failed out patient treatment O2 inhalation PRN IV Solumedrol, Pulmonary consult, Albuterol MDI and Nebs Code(s): J45.901 - UNSPECIFIED ASTHMA WITH (ACUTE) EXACERBATION Qualifiers: Asthma severity: moderate Asthma persistence: persistent Qualified Code(s ): J45.41 - Moderate persistent asthma with (acute) exacerbation (2) Eosinophilia Assessment/Plan: 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
[2019-08-21] MEDS: methylPREDNISolone NA SUCC 40 MG/1 ML VIAL IVPB SCH (19:31)
--- NOTE | 2019-08-21 20:14 | EKG ---
Test Reason : Blood Pressure : / mmHG Vent. Rate : 080 BPM Atrial Rate : 080 BPM P-R Int : 164 ms QRS Dur : 096 ms QT Int : 364 ms P-R-T Axes : 028 019 107 degrees QTc Int : 419 ms POOR DATA QUALITY, INTERPRETATION MAY BE ADVERSELY AFFECTED NORMAL SINUS RHYTHM NONSPECIFIC T WAVE ABNORMALITY ABNORMAL ECG WHEN COMPARED WITH ECG OF 23-JUL-2019 11:34, NO SIGNIFICANT CHANGE WAS FOUND Confirmed by MD LANCE, LOIS ([id number]) on 08/21/2019 8:14:17 PM Referred By: Confirmed By:LOIS LUCAS MD
[2019-08-21] MEDS: ALBUTEROL SO4 8 GM HFA INHALER IH SCH (21:07)
[2019-08-21] MEDS ORDERED: ZOLPIDEM TARTRATE 5 MG TABLET PO PRN (22:00)
[2019-08-21] MEDS ORDERED: ATORVASTATIN CA 10 MG TABLET (FP) PO SCH (22:00)
[2019-08-21 23:16] VITALS: BMI 33.7
[2019-08-22] MEDS: methylPREDNISolone NA SUCC 40 MG/1 ML VIAL IVPB SCH ×2 (03:06→10:47)
[2019-08-22 07:22] LABS: BASO % 0.3 % (0-2.0); EOS % 0.1 % (0-4.5); HEMATOCRIT 44.1 % (35.4-49); LYMPH % 7.7 % (8-40); MCH 30.9 pg (25.7-33.7); MEAN CELL VOLUME 91.1 fl (80-96); MEAN PLT VOLUME 7.2 fl (7.5-11.1); MONO % 2.1 % (3.8-10.2); NEUT % 89.8 % (42.8-82.8); PLATELET COUNT 273 K/MM3 (134-434); RBC 4.84 M/mm3 (4.00-5.60); WHITE BLOOD COUNT 14.9 K/mm3 (4.0-10.0)
[2019-08-22 07:39] LABS: BLOOD UREA NITROGEN 23.1 mg/dL (7-18); CALCIUM 9.1 mg/dL (8.5-10.1); CREATININE 1.4 mg/dL (0.55-1.3); MAGNESIUM 2.3 mg/dL (1.8-2.4); POTASSIUM 4.7 mmol/L (3.5-5.1)
[2019-08-22] MEDS: ALBUTEROL SO4 8 GM HFA INHALER IH SCH ×2 (10:47→11:05)
[2019-08-22 13:38] VITALS: BP 126/82; PULSE 89; TEMP 98
--- NOTE | 2019-08-22 13:41 | DS ---
Physical Examination Vital Signs: Vital Signs Temperature 98 F 08/22/19 10:38 Pulse Rate 89 08/22/19 10:38 Respiratory Rate 20 08/22/19 10:38 Blood Pressure 126/82 08/22/19 10:38 O2 Sat by Pulse Oximetry (%) 96 08/22/19 09:00 Findings/Remarks: pt seen/ examined chart reviewed feels well wants to go home Constitutional: Yes: No Distress Eyes: Yes: Conjunctiva Clear Neck: Yes: Supple Cardiovascular: Yes: Regular Rate and Rhythm. No: Pulse Irregular Respiratory: Yes: CTA Bilaterally, Rhonchi (scattered) Gastrointestinal: Yes: Normal Bowel Sounds Edema: No Neurological: Yes: Alert Labs: CBC, BMP 08/22/19 05:10 08/22/19 05:10 Discharge Summary Problems reviewed: Yes Reason For Visit: EXACERBATION OF ASTHMA Current Active Problems Asthma exacerbation (Acute) Eosinophilia (Acute) Hospital Course: 69 yrs old man ex smoker , asthma diagnosed many yrs ago F/U with Dr Hodges, Dyslipedmia recently discharged from Ed on 08/14/2019 after treated for asthma exacerbation on PO prednisone that he completed 2 dayas ago next day developed gradually worsening SOB with chest tightness denies any URTI symptoms, a chest pain or palpitation no c/o edema or orthopnea in the Ed w/u shows normal TWBC , normal CXR patient remained symptomatic despite IV Mag Sulfate and Nebs treatment is being admitted for further evaluation and management. Better with steroids- Solumedrol stable discussed will d/c on medrol pack f/u in office 2 weeks pt in agreement meds reconcilled. prescriptions send to pharmacy Condition: Stable - Instructions Referrals: Stella Metz MD [Primary Care Provider] - Disposition: HOME - Home Medications Comprehensive Discharge Medication List: Ambulatory Orders Atorvastatin Ca [Lipitor] 10 mg PO HS 07/01/18 Zolpidem Tartrate [Ambien] 10 mg PO HS 12/16/18 Albuterol Sulfate Inhaler - [Ventolin HFA Inhaler -] 2 inh PO Q6H PRN #1 inh Nebulizer and Compressor [Innospire Deluxe Cherry Neb] 1 each MC PRN #1 each Methylprednisolone [Medrol Dose Bandar] 4 mg PO ASDIR #21 tablet 08/22/19 Omeprazole Magnesium [Prilosec Otc] 20 mg PO DAILY #30 tablet. 08/22/19
== END 2019-08-22 14:53 | disposition home or self-care (01) | DRG 203 ==
LOC: JER 12:56 → JERBED 14:55 → J5S 20:12
PROVIDERS: ADMIT Internal Medicine; ATTEND Internal Medicine
DX: J45.41 Moderate persistent asthma with (acute) exacerbation (principal); D72.1 Eosinophilia; E78.5 Hyperlipidemia, unspecified; G47.00 Insomnia, unspecified
CPT/HCPCS: 36415; 71046-TC-FY; 80048; 80053; 83735; 84484; 85025; 86682; 93005; 93010; 99284-25

== ENCOUNTER 2022-06-27 04:16 | Day surgery (SDC) | payer OTHER, MEDICARE ==
[2022-06-25 13:17] VITALS: BMI 36.4
[2022-06-27 12:27] VITALS: BP 147/80; PULSE 69; RESP 20
[2022-06-27 12:38] LABS: BASO % 0.3 % (0-2.0); EOS % 3.7 % (0-4.5); HEMATOCRIT 45.3 % (35.4-49); HEMOGLOBIN 15.1 GM/dL (11.7-16.9); LYMPH % 22.5 % (8-40); MCHC 33.3 g/dl (32.0-35.9); MEAN PLT VOLUME 7.4 fl (7.5-11.1); MONO % 8.8 % (3.8-10.2); NEUT % 64.7 % (42.8-82.8); PLATELET COUNT 227 10^3/uL (134-434); RBC 5.03 M/mm3 (4.00-5.60); RDW 14.9 % (11.9-15.9); WHITE BLOOD COUNT 6.8 K/mm3 (4.0-10.0)
[2022-06-27 12:45] LABS: INR 1.28 (0.83-1.09); PROTHROMBIN TIME (PATIENT) 14.7 SEC (9.7-13.0)
[2022-06-27 12:46] VITALS: TEMP 98
[2022-06-27 13:09] LABS: ALBUMIN 3.6 g/dl (3.4-5.0); BLOOD UREA NITROGEN 15.1 mg/dL (7-18); CALCIUM 8.8 mg/dL (8.5-10.1)
[2022-06-27 13:12] LABS: CREATININE 1.4 mg/dL (0.55-1.3)
[2022-06-27 13:14] LABS: BILIRUBIN,TOTAL 0.7 mg/dL (0.2-1); TOT PROT 7.1 g/dl (6.4-8.2)
== END 2022-06-27 13:00 | disposition home or self-care (01) ==
LOC: JASU-ENDO 04:16
PROVIDERS: ATTEND Internal Medicine Gastroenterology
PROC: 0DBL8ZX Excision of Transverse Colon, Via Natural or Artificial Opening Endoscopic, Diagnostic (ICD-10-PCS; 2022-06-27)
PROC: 0DBN8ZX Excision of Sigmoid Colon, Via Natural or Artificial Opening Endoscopic, Diagnostic (ICD-10-PCS; 2022-06-27)
PROC: 0DBM8ZX Excision of Descending Colon, Via Natural or Artificial Opening Endoscopic, Diagnostic (ICD-10-PCS; 2022-06-27)
PROC: 0DBK8ZX Excision of Ascending Colon, Via Natural or Artificial Opening Endoscopic, Diagnostic (ICD-10-PCS; principal; 2022-06-27 10:45)
DX: Z12.11 Encounter for screening for malignant neoplasm of colon (principal); K57.30 Diverticulosis of large intestine without perforation or abscess without bleeding; K59.89 Other specified functional intestinal disorders; K64.8 Other hemorrhoids; R19.4 Change in bowel habit; R19.7 Diarrhea, unspecified; E11.9 Type 2 diabetes mellitus without complications
CPT/HCPCS: 36415; 80053; 82962; 85025; 85610; 88305-TC